=== PATIENT | female | born 1940 | race Caucasian/White ===

== ENCOUNTER 2017-03-22 07:08 | Emergency (ER) | payer MEDICARE, OTHER ==
[2017-03-22] MEDS ORDERED: traMADol 50 MG Tab PO ONE (07:39)
--- NOTE | 2017-03-22 07:42 | EDM.PDOC ---
ED HPI GENERAL MEDICAL PROBLEM - General Chief Complaint: Skin Complaint Stated Complaint: PAIN FROM SHINGLES Time Seen by Provider: 03/22/17 07:10 Source of Information: Reports: Patient History Limitations: Reports: No Limitations - History of Present Illness INITIAL COMMENTS - FREE TEXT/NARRATIVE: History of present illness: []Patient is brought in by her son for refill of tramadol for shingles. Patient arrived from [facility] the seizure last night and was admitted from March 04 to the for pyelonephritis, shingles and a stroke. Patient has no residual deficits from her stroke and she states that the stroke happened "years ago". Patient is currently on Valtrex for her shingles and Cipro for pyelonephritis. She has occasional urinary incontinence and is unchanged. She denies any fevers , vomiting, diarrhea, abdominal pain or any other complaints at this time Review of systems: As per history of present illness and below otherwise all systems reviewed and negative. Past medical history: As per history of present illness and as reviewed below otherwise noncontributory. Surgical history: As per history of present illness and as reviewed below otherwise noncontributory. Social history: No reported history of drug or alcohol abuse. Family history: As per history of present illness and as reviewed below otherwise noncontributory. Physical exam: General: Well developed, well nourished in NAD HEENT: Atraumatic, normocephalic, pupils reactive, negative for conjunctival pallor or scleral icterus, mucous membranes moist, throat clear, neck supple, nontender, trachea midline. Lungs: Clear to auscultation, breath sounds equal bilaterally, chest nontender. Heart: S1S2, regular, negative for clicks, rubs, or JVD. Abdomen: Soft, nondistended, nontender. Negative for masses or hepatosplenomegaly. Negative for costovertebral tenderness. Pelvis: Stable nontender. Shingles rash in her left flank to left abdomen. There is no signs of secondary infection/cellulitis Genitourinary: Deferred. Rectal: Deferred. Extremities: Atraumatic, negative for cords or calf pain. Neurovascular unremarkable. Neuro: Awake, alert, oriented. Cranial nerves II through XII unremarkable. Cerebellum unremarkable. Motor and sensory unremarkable throughout. Exam nonfocal. Diagnostics: [] Therapeutics: []Tramadol while in the ED Impression: []Med refill, shingles Plan: []Continue your current meds and tramadol as directed for pain follow-up with Dr. Iniguez Definitive disposition and diagnosis as appropriate pending reevaluation and review of above. Left Upper Chest Pain Score (Numeric/FACES): 10 - Related Data Allergies Allergy/AdvReac Type Severity Reaction Status Date / Time morphine Allergy Cannot Verified 03/22/17 07:32 Remember Home Meds: Home Meds Apixaban [Eliquis] 5 mg BID 03/22/17 [History] Atenolol 25 mg PO BID 03/22/17 [History] Baclofen 10 mg BEDTIME 03/22/17 [History] Ciprofloxacin [IJD: Ciprofloxacin HCl] 500 mg BID 03/22/17 [History] Clopidogrel [Plavix] 75 mg PO DAILY 03/22/17 [History] Donepezil HCl [Aricept] 10 mg PO BEDTIME 03/22/17 [History] Levothyroxine [Synthroid] 50 mcg PO ACBREAKFAST 03/22/17 [History] Memantine [Namenda] 10 mg PO BID 03/22/17 [History] Multivitamin [Multivitamins] 1 cap DAILY 03/22/17 [History] Simvastatin [Zocor] 10 mg PO DAILY 03/22/17 [History] traMADol HCl [Tramadol HCl] 50 mg PO Q6H PRN #20 tablet 03/22/17 [Rx] valACYclovir [Valtrex] 1,000 mg BID 03/22/17 [History] ED ROS GENERAL - Review of Systems Review Of Systems: See Below (See history of present illness) ED EXAM, SKIN/RASH Exam: See Below (See history of present illness) Course - Vital Signs Last Recorded V/S: Last Vital Signs Temp 97.2 F 03/22/17 07:28 Pulse 57 L 03/22/17 07:28 Resp 18 03/22/17 07:28 BP 127/72 03/22/17 07:28 Pulse Ox 95 03/22/17 07:28 - Orders/Labs/Meds Meds: Medications Discontinued Medications Generic Name Dose Route Start Last Admin Trade Name Freq PRN Reason Stop Dose Admin Tramadol HCl 50 mg 03/22/17 07:39 Ultram PO 03/22/17 07:40 ONETIME ONE Departure - Departure Time of Disposition: 07:47 Disposition: Home, Self-Care 01 Condition: Good Clinical Impression: Medication refill - Discharge Information Prescriptions: traMADol HCl [Tramadol HCl] 50 mg PO Q6H PRN #20 tablet PRN Reason: Pain Referrals: Nicolas Iniguez MD [Physician] - (Next available appointment) Forms: ED Department Discharge Additional Instructions: The following information is given to patients seen in the emergency department who are being discharged to home. This information is to outline your options for follow-up care. We provide all patients seen in our emergency department with a follow-up referral. The need for follow-up, as well as the timing and circumstances, are variable depending upon the specifics of your emergency department visit. If you don't have a primary care physician on staff, we will provide you with a referral. We always advise you to contact your personal physician following an emergency department visit to inform them of the circumstance of the visit and for follow-up with them and/or the need for any referrals to a consulting specialist. The emergency department will also refer you to a specialist when appropriate. This referral assures that you have the opportunity for follow-up care with a specialist. All of these measure are taken in an effort to provide you with optimal care, which includes your follow-up. Under all circumstances we always encourage you to contact your private physician who remains a resource for coordinating your care. When calling for follow-up care, please make the office aware that this follow-up is from your recent emergency room visit. If for any reason you are refused follow-up, please contact the [facility] Emergency Department at and asked to speak to the emergency department charge nurse. Take meds as directed follow-up with Dr. Iniguez as needed, return if symptoms worsen or change [facility] [address] [place] [id number]
== END 2017-03-22 08:00 | disposition home or self-care (01) ==
LOC: MW.ED 07:08
DX: Z76.0 Encounter for issue of repeat prescription (principal); B02.9 Zoster without complications; Z88.5 Allergy status to narcotic agent; Z79.899 Other long term (current) drug therapy
CPT/HCPCS: 99281; A9270

== ENCOUNTER 2017-03-29 09:38 | Observation (INO) | payer MEDICARE, OTHER ==
--- NOTE | 2017-03-29 09:45 | EDM.PDOC ---
ED HPI GENERAL MEDICAL PROBLEM - General Chief Complaint: Flank Pain Stated Complaint: ABD PAIN Time Seen by Provider: 03/29/17 09:45 Source of Information: Reports: Patient - History of Present Illness INITIAL COMMENTS - FREE TEXT/NARRATIVE: HISTORY AND PHYSICAL: History of present illness: Patient is up with family possibly relocating from [place] in [address] [place] [address] She has a recent admission for pyelonephritis while down in [place], she also has a history of shingles on the left in a T8 10 distribution, she is complaining of left flank pain radiating to the abdomen and some radiation to the groin she rated 8 out of 10 on arrival No fever nausea vomiting chills sweats Review of systems: As per history of present illness and below otherwise all systems reviewed and negative. Past medical history: As per history of present illness and as reviewed below otherwise noncontributory. Surgical history: As per history of present illness and as reviewed below otherwise noncontributory. Social history: No reported history of drug or alcohol abuse. Family history: As per history of present illness and as reviewed below otherwise noncontributory. Physical exam: HEENT: Atraumatic, normocephalic, pupils reactive, negative for conjunctival pallor or scleral icterus, mucous membranes moist, throat clear, neck supple, nontender, trachea midline. Lungs: Clear to auscultation, breath sounds equal bilaterally, chest nontender. Heart: S1S2, regular, negative for clicks, rubs, or JVD. Abdomen: Soft, nondistended, nontender. Negative for masses or hepatosplenomegaly. Negative for costovertebral tenderness. Pelvis: Stable nontender. Genitourinary: Deferred. Rectal: Deferred. Extremities: Atraumatic, negative for cords or calf pain. Neurovascular unremarkable. Neuro: Awake, alert, oriented. Cranial nerves II through XII unremarkable. Cerebellum unremarkable. Motor and sensory unremarkable throughout. Exam nonfocal. Diagnostics: [CBC CMP UA troponin amylase lipase CT abdomen pelvis no contrast Therapeutics: [1 L bolus normal saline Normal saline running at 125 Levaquin 500 milligrams IV Zosyn 3.375 g IV ] Impression: Hypotension Left pyelonephritis UTI Rule out sepsis [Left]Flank pain Definitive disposition and diagnosis as appropriate pending reevaluation and review of above. Left Abdominal Pain Score (Numeric/FACES): 9 - Related Data Allergies Allergy/AdvReac Type Severity Reaction Status Date / Time morphine Allergy Cannot Verified 03/29/17 09:52 Remember Home Meds: Home Meds Apixaban [Eliquis] 5 mg BID 03/22/17 [History] Atenolol 25 mg PO BID 03/22/17 [History] Baclofen 10 mg BEDTIME 03/22/17 [History] Ciprofloxacin [IJD: Ciprofloxacin HCl] 500 mg BID 03/22/17 [History] Clopidogrel [Plavix] 75 mg PO DAILY 03/22/17 [History] Donepezil HCl [Aricept] 10 mg PO BEDTIME 03/22/17 [History] Levothyroxine [Synthroid] 50 mcg PO ACBREAKFAST 03/22/17 [History] Memantine [Namenda] 10 mg PO BID 03/22/17 [History] Multivitamin [Multivitamins] 1 cap DAILY 03/22/17 [History] Simvastatin [Zocor] 10 mg PO DAILY 03/22/17 [History] traMADol HCl [Tramadol HCl] 50 mg PO Q6H PRN #20 tablet 03/22/17 [Rx] valACYclovir [Valtrex] 1,000 mg BID 03/22/17 [History] Past Medical History Cardiovascular History: Reports: High Cholesterol, Hypertension, [place], Stents Neurological History: Reports: Alzheimers Disease, TIA Psychiatric History: Reports: Alzheimers Disease Endocrine/Metabolic History: Reports: Hypothyroidism Oncologic (Cancer) History: Reports: Cervix - Infectious Disease History Infectious Disease History: Reports: Chicken Pox, Measles, Mumps, Rheumatic Fever, Shingles - Past Surgical History HEENT Surgical History: Reports: Tonsillectomy GI Surgical History: Reports: Appendectomy Female Surgical History: Reports: Hysterectomy, Oophorectomy Other Female Surgeries/Procedures: hx cervical cancer Social & Family History - Family History Family Medical History: Noncontributory - Tobacco Use Smoking Status *Q: Former Smoker Used Tobacco, but Quit: Yes Month Tobacco Last Used: unknown - Caffeine Use Caffeine Use: Reports: None - Recreational Drug Use Recreational Drug Use: No ED ROS GENERAL - Review of Systems Review Of Systems: ROS reveals no pertinent complaints other than HPI. ED EXAM, GENERAL - Physical Exam Exam: See Below Course - Vital Signs Last Recorded V/S: Last Vital Signs Temp 98.6 F 03/29/17 12:39 Pulse 60 03/29/17 12:39 Resp 12 03/29/17 12:39 BP 93/59 L 03/29/17 12:39 Pulse Ox 99 03/29/17 12:39 - Orders/Labs/Meds Orders: Active Orders 24 hr Category Date Time Status CULTURE BLOOD [BC] Stat Lab 03/29/17 12:04 Received CULTURE BLOOD [BC] Stat Lab 03/29/17 12:15 Received CULTURE URINE [RM] Stat Lab 03/29/17 11:20 Received LACTATE WITH REFLEX [BG] Stat Lab 03/29/17 13:03 Ordered HYDROmorphone [Dilaudid] Med 03/29/17 11:16 Active 0.5 mg IVPUSH ONETIME PRN Piperacillin/Tazobactam [Piperacil-Tazobact] 3.375 gm Med 03/29/17 13:06 Ordered Sodium Chloride 0.9% [Normal Saline] 50 ml IV ONETIME Blood Culture x2 Reflex Set [OM.PC] Stat Oth 03/29/17 11:53 Ordered Medication Orders Hydromorphone HCl (Dilaudid) 0.5 mg IVPUSH ONETIME PRN PRN Reason: Pain Labs: Laboratory Tests 03/29/17 03/29/17 03/29/17 Range/Units 10:15 10:15 11:20 WBC 6.20 (4.0-11.0) K/uL RBC 4.48 (4.30-5.90) M/uL Hgb 13.7 (12.0-16.0) g/dL Hct 41.9 (36.0-46.0) % MCV 93.5 (80.0-98.0) fL MCH 30.6 (27.0-32.0) pg MCHC 32.7 (31.0-37.0) g/dL RDW Std Deviation 57.7 (28.0-62.0) fl RDW Coeff of [place] 17 H (11.0-15.0) % Plt Count 233 (150-400) K/uL MPV 8.80 (7.40-12.00) fL Neut % (Auto) 61.8 (48.0-80.0) % Lymph % (Auto) 28.1 (16.0-40.0) % [place] % (Auto) 9.4 (0.0-15.0) % Eos % (Auto) 0.5 (0.0-7.0) % Baso % (Auto) 0.2 (0.0-1.5) % Neut # (Auto) 3.8 (1.4-5.7) K/uL Lymph # (Auto) 1.7 (0.6-2.4) K/uL [place] # (Auto) 0.6 (0.0-0.8) K/uL Eos # (Auto) 0.0 (0.0-0.7) K/uL Baso # (Auto) 0.0 (0.0-0.1) K/uL Nucleated RBC % 0.0 /100WBC Nucleated RBCs # 0 K/uL Sodium 137 (136-146) mmol/L Potassium 4.4 (3.5-5.1) mmol/L Chloride 103 (98-110) mmol/L Carbon Dioxide 23 (21-31) mmol/L BUN 24 H (6.0-23.0) mg/dL Creatinine 1.1 (0.6-1.5) mg/dL Est Cr Clr Drug Dosing 39.15 mL/min Estimated GFR (MDRD) 48.3 ml/min Glucose 103 (60-110) mg/dL Calcium 9.6 (8.8-10.8) mg/dL Total Bilirubin 0.7 (0.1-1.5) mg/dL AST 18 (5-40) IU/L ALT 11 (8-54) IU/L Alkaline Phosphatase 63 (40-150) Troponin I < 0.10 (0.0-0.29) NG/ML Total Protein 7.8 (6.0-8.0) g/dL Albumin 4.3 (3.4-4.8) g/dL Globulin 3.5 (2.0-3.5) g/dL Albumin/Globulin Ratio 1.2 L (1.3-2.8) Amylase 75 (10-90) U/L Lipase 15 (7-80) U/L Urine Color YELLOW Urine Appearance CLEAR Urine pH 6.0 (5.0-8.0) Ur Specific [place] 1.010 (1.001-1.035) Urine Protein NEGATIVE (NEGATIVE) mg/dL Urine Glucose (UA) NEGATIVE (NEGATIVE) mg/dL Urine Ketones NEGATIVE (NEGATIVE) mg/dL Urine Occult Blood MODERATE (NEGATIVE) Urine Nitrite NEGATIVE (NEGATIVE) Urine Bilirubin NEGATIVE (NEGATIVE) Urine Urobilinogen 0.2 (<2.0) EU/dL Ur Leukocyte Esterase MODERATE (NEGATIVE) Urine RBC 2-3 (0-2/HPF) Urine WBC 30-35 (0-5/HPF) Ur Epithelial Cells FEW (NONE-FEW) Urine Bacteria FEW (NEGATIVE) Meds: Medications Generic Name Dose Route Start Last Admin Trade Name Freq PRN Reason Stop Dose Admin Hydromorphone HCl 0.5 mg 03/29/17 11:16 Dilaudid IVPUSH ONETIME PRN Pain Discontinued Medications Generic Name Dose Route Start Last Admin Trade Name Freq PRN Reason Stop Dose Admin Hydromorphone HCl 0.5 mg 03/29/17 11:03 Dilaudid IVPUSH ONETIME PRN Pain Hydromorphone HCl 0.5 mg 03/29/17 11:14 03/29/17 11:20 Dilaudid IVPUSH 03/29/17 11:15 0.5 mg ONETIME ONE Administration Sodium Chloride 1,000 mls @ 999 mls/hr 03/29/17 10:05 03/29/17 10:36 Normal Saline IV 03/29/17 11:05 999 mls/hr STAT ONE Administration Levofloxacin/Dextrose 500 mg/ 100 mls @ 100 mls/hr 03/29/17 12:01 03/29/17 12 :37 Premix IV 03/29/17 13:00 100 mls/hr ONETIME ONE Administration Departure - Departure Time of Disposition: 13:09 Disposition: Home, Self-Care 01 Condition: Good Clinical Impression: UTI, Urinary tract infectious disease, Hypotension, Pyelonephritis - Discharge Information Referrals: PCP,None [Primary Care Provider] - Forms: ED Department Discharge - My Orders Last 24 Hours: My Active Orders 03/29/17 11:16 HYDROmorphone [Dilaudid] 0.5 mg IVPUSH ONETIME PRN 03/29/17 11:20 CULTURE URINE [RM] Stat 03/29/17 11:53 Blood Culture x2 Reflex Set [OM.PC] Stat 03/29/17 12:04 CULTURE BLOOD [BC] Stat 03/29/17 12:15 CULTURE BLOOD [BC] Stat 03/29/17 13:03 LACTATE WITH REFLEX [BG] Stat 03/29/17 13:06 Piperacillin/Tazobactam [Piperacil-Tazobact] 3.375 gm Sodium Chloride 0.9% [ Normal Saline] 50 ml IV ONETIME - Assessment/Plan Last 24 Hours: My Active Orders 03/29/17 11:16 HYDROmorphone [Dilaudid] 0.5 mg IVPUSH ONETIME PRN 03/29/17 11:20 CULTURE URINE [RM] Stat 03/29/17 11:53 Blood Culture x2 Reflex Set [OM.PC] Stat 03/29/17 12:04 CULTURE BLOOD [BC] Stat 03/29/17 12:15 CULTURE BLOOD [BC] Stat 03/29/17 13:03 LACTATE WITH REFLEX [BG] Stat 03/29/17 13:06 Piperacillin/Tazobactam [Piperacil-Tazobact] 3.375 gm Sodium Chloride 0.9% [ Normal Saline] 50 ml IV ONETIME
[2017-03-29] MEDS ORDERED: Sodium Chloride 0.9% 1,000 ML IV ONE (10:05)
[2017-03-29 10:51] LABS: CHLORIDE,CL 103 mmol/L (98-110); SODIUM,NA 137 mmol/L (136-146)
[2017-03-29] MEDS ORDERED: HYDROmorphone 2 MG/ML Syringe IVPUSH PRN (11:03)
[2017-03-29] MEDS ORDERED: HYDROmorphone 1 MG/ML Syringe IVPUSH ONE (11:14)
[2017-03-29] MEDS ORDERED: HYDROmorphone 1 MG/ML Syringe IVPUSH PRN (11:16)
[2017-03-29] MEDS ORDERED: Levofloxacin/Dextrose 5%-Water 500 MG in Premix Bag 1 BAG IV ONE (12:01)
--- NOTE | 2017-03-29 12:53 | CT ---
CT of the abdomen and pelvis without contrast. HISTORY: Pain TECHNIQUE: Axial CT images were obtained of the abdomen and pelvis without contrast. Coronal and sagi ttal reconstructions obtained. FINDINGS: The lung bases are clear, no pleural effusion. There is a 6 x 5 mm nodule within the left lower lobe and eccentric calcification. There are a few adjacent tiny predominantly calcified nodules also noted . Coronary calcifications are noted. The liver, spleen, adrenal glands, and pancreas appear unremarkable for noncontrast examination. Chol ecystectomy. There is no bulky retroperitoneal lymphadenopathy. No abdominal ascites. There are no calcifications noted within the kidneys or along the courses of the ureters bilaterally. Mild prominence of the proximal ureters without a definite filling defect. The large and small bowel are normal in caliber without evidence of obstruction. There is no bulky p elvic lymphadenopathy. No free fluid. No free air. The urinary bladder appears normal. The visualized osseous structures appear normal. IMPRESSION: 1. No acute findings within the abdomen or pelvis. 2. Several small pulmonary nodules within the left lung base, one of which is not calcified. Follow-u p in 12 months may be beneficial if the patient has known risk factors.
[2017-03-29] MEDS ORDERED: Piperacillin/Tazobactam 3.375 GM in Sodium Chloride 0.9% 50 ML IV ONE (13:06)
[2017-03-29] MEDS ORDERED: Sodium Chloride 0.9% 1,000 ML IV SCH (13:15)
[2017-03-29] MEDS ORDERED: Ondansetron 4 MG/2 ML SDV IVPUSH PRN (13:36)
--- NOTE | 2017-03-29 13:43 | PCM.HP ---
H&P History of Present Illness - General Admit Problem/Dx: Admission Diagnosis/Problem Admission Diagnosis/Problem Pyelonephritis - History of Present Illness Initial Comments - Free Text/Narative: 76 yo female with pmh of dementia and CAD. She had a recent hospitalization last week in [place] for UTI and shingles. She was discharged on Cipro and valacyclovir. Due to her dementia she was brought here closer to her son. Due to increasing flank pain in the area of her shingles she was brought to the ED. In the ED she was noted to have pyuria. She had a CT scan of abdomen/pelvis that did not show any obstructing stones. She was given 0.5mg of dilaudid. Her blood pressure on admission was 144/64 but this dropped to 93/59. She was given IV fluids and her blood pressure now is 109/53. She denies any fever, chills, cough, or shortness of breath. She is a poor historian and son present does not know much about her medical history. Left Abdominal Pain Score (Numeric/FACES): 9 - Related Data Allergies/Adverse Reactions: Allergies Allergy/AdvReac Type Severity Reaction Status Date / Time morphine Allergy Cannot Verified 03/29/17 09:52 Remember Home Medications: Home Meds Apixaban [Eliquis] 5 mg BID 03/22/17 [History] Atenolol 25 mg PO BID 03/22/17 [History] Baclofen 10 mg BEDTIME 03/22/17 [History] Clopidogrel [Plavix] 75 mg PO DAILY 03/22/17 [History] Donepezil HCl [Aricept] 10 mg PO BEDTIME 03/22/17 [History] Levothyroxine [Synthroid] 50 mcg PO ACBREAKFAST 03/22/17 [History] Memantine [Namenda] 10 mg PO BID 03/22/17 [History] Multivitamin [Multivitamins] 1 cap DAILY 03/22/17 [History] Simvastatin [Zocor] 10 mg PO DAILY 03/22/17 [History] traMADol HCl [Tramadol HCl] 50 mg PO Q6H PRN #20 tablet 03/22/17 [Rx] Gabapentin 300 mg PO TID 15 Days #45 ml 03/31/17 [Rx] Sulfamethoxazole/Trimethoprim [Bactrim Ds Tablet] 1 each PO BID 7 Days #14 tablet 03/31/17 [Rx] oxyCODONE 5 mg PO Q6HR PRN 5 Days #20 tablet 03/31/17 [Rx] Past Medical History Cardiovascular History: Reports: High Cholesterol, Hypertension, [place], Stents Neurological History: Reports: Alzheimers Disease, TIA Psychiatric History: Reports: Alzheimers Disease Endocrine/Metabolic History: Reports: Hypothyroidism Oncologic (Cancer) History: Reports: Cervix - Infectious Disease History Infectious Disease History: Reports: Chicken Pox, Measles, Mumps, Rheumatic Fever, Shingles - Past Surgical History HEENT Surgical History: Reports: Tonsillectomy GI Surgical History: Reports: Appendectomy Female Surgical History: Reports: Hysterectomy, Oophorectomy Other Female Surgeries/Procedures: hx cervical cancer Social & Family History - Family History Family Medical History: Noncontributory - Tobacco Use Smoking Status *Q: Former Smoker Used Tobacco, but Quit: Yes Month Tobacco Last Used: unknown - Caffeine Use Caffeine Use: Reports: None - Recreational Drug Use Recreational Drug Use: No H&P Review of Systems - Review of Systems: Review Of Systems: ROS reveals no pertinent complaints other than HPI. Exam - Exam Exam: See Below - Vital Signs Vital Signs: Last Vital Signs Temp 36.6 C 03/29/17 13:07 Pulse 60 03/29/17 13:07 Resp 13 03/29/17 13:07 BP 109/54 L 03/29/17 13:07 Pulse Ox 92 L 03/29/17 13:07 Weight: 57.153 kg - Exam General: Alert, Oriented HEENT: Mucosa Moist & [place] Lungs: Clear to Auscultation, Normal Respiratory Effort GI/Abdominal Exam: Soft, Non-Tender Back Exam: No: CVA Tenderness (L), CVA Tenderness (R) Extremities: No Pedal Edema Skin: Rash (macular papular rash of the left flank) - Patient Data Lab Results Last 24 hrs: Laboratory Results - last 24 hr 03/29/17 Range/Units 13:18 Lactate 0.7 (0.20-2.00) mmol/L Result Diagrams: 03/31/17 09:15 03/31/17 09:15 *Q Meaningful Use (ADM) - VTE *Q VTE Criteria *Q: - Stroke *Q Stroke Criteria *Q: - AMI *Q AMI Criteria *Q: Problem List Initiated/Reviewed/Updated: Yes Orders Last 24hrs: Active Orders 24 hr Category Date Time Status Antiembolic Devices [RC] PER UNIT ROUTINE Care 03/29/17 13:37 Ordered Oxygen Therapy [RC] PRN Care 03/29/17 13:36 Ordered Up ad Penny [RC] ASDIRECTED Care 03/29/17 13:36 Ordered VTE/DVT Education [RC] PER UNIT ROUTINE Care 03/29/17 13:36 Ordered Vital Signs [RC] Q4H Care 03/29/17 13:36 Ordered Regular Diet [DIET] Diet 03/29/17 Breakfast Ordered BASIC METABOLIC PANEL,BMP [CHEM] AM Lab 03/30/17 05:11 Ordered CBC WITH AUTO DIFF [HEME] AM Lab 03/30/17 05:11 Ordered Apixaban [Eliquis] Med 03/29/17 21:00 Ordered 5 mg PO BID Clopidogrel [Plavix] Med 03/30/17 09:00 Ordered 75 mg PO DAILY Levothyroxine [Synthroid] Med 03/30/17 07:30 Ordered 50 mcg PO ACBREAKFAST Ondansetron [Zofran] Med 03/29/17 13:36 Ordered 4 mg IVPUSH Q4H PRN Piperacillin/Tazobactam [Piperacil-Tazobact] 3.375 gm Med 03/29/17 19:00 Ordered Sodium Chloride 0.9% [Normal Saline] 50 ml IV Q6H Sodium Chloride 0.9% @ 125 MLS/HR (1000ml) Med 03/29/17 13:45 Ordered Sodium Chloride 0.9% [Normal Saline] 1,000 ml IV ASDIRECTED Sodium Chloride 0.9% [Normal Saline] 1,000 ml Med 03/29/17 13:15 Active IV STAT valACYclovir Med 03/29/17 21:00 Ordered 1,000 mg PO BID Sequential Compression Device [OM.PC] Per Unit Routine Oth 03/29/17 13:36 Ordered Resuscitation Status Routine Resus Stat 03/29/17 13:36 Ordered Medication Orders Apixaban (Eliquis) 5 mg PO BID MICHELLE Clopidogrel Bisulfate (Plavix) 75 mg PO DAILY MICHELLE Hydromorphone HCl (Dilaudid) 0.5 mg IVPUSH ONETIME PRN PRN Reason: Pain Sodium Chloride (Normal Saline) 1,000 mls @ 125 mls/hr IV STAT MICHELLE Last Admin: 03/29/17 13:17 Dose: 125 mls/hr Piperacillin Sod/Tazobactam (Sod 3.375 gm/ Sodium Chloride) 50 mls @ 100 mls/ hr IV Q6H [facility] Levothyroxine Sodium (Synthroid) 50 mcg PO ACBREAKFAST [facility] Non-Formulary Medication (Valacyclovir) 1,000 mg PO BID [facility] Assessment/Plan Comment:: 76 yo female admitted for UTI and hypotension. Her low blood pressure could be from the Dilaudid but will continue to closely monitor to rule out sepsis. Patient is on Zosyn. Blood and urine cultures are ordered. We will continue valacyclovir.
[2017-03-29] MEDS: Sodium Chloride 0.9% 1,000 ML IV SCH ×2 (15:25→21:32)
[2017-03-29] MEDS: traMADol 50 MG Tab PO PRN ×2 (15:25→22:41)
[2017-03-29] MEDS: Acetaminophen 325 MG Tab PO PRN ×2 (15:25→20:58)
[2017-03-29] MEDS: Piperacillin/Tazobactam 3.375 GM in Sodium Chloride 0.9% 50 ML IV SCH (18:03)
[2017-03-29] MEDS ORDERED: Morphine 2 MG/ML Syringe IVPUSH PRN (19:40)
[2017-03-29] MEDS: Apixaban 5 MG Tab PO SCH (20:22)
[2017-03-29] MEDS: valACYclovir 500 MG Tab PO SCH (20:22)
[2017-03-29] MEDS: oxyCODONE 5 MG Tab PO PRN (20:58)
[2017-03-29] MEDS ORDERED: Gabapentin 300 MG Cap PO SCH (22:48)
[2017-03-29] MEDS: Gabapentin 300 MG Cap PO SCH (23:15)
[2017-03-30] MEDS: Piperacillin/Tazobactam 3.375 GM in Sodium Chloride 0.9% 50 ML IV SCH ×4 (00:15→18:03)
[2017-03-30] MEDS: oxyCODONE 5 MG Tab PO PRN ×4 (03:14→18:04)
[2017-03-30] MEDS: Acetaminophen 325 MG Tab PO PRN ×4 (03:16→18:04)
[2017-03-30] MEDS: Sodium Chloride 0.9% 1,000 ML IV SCH (06:01)
[2017-03-30 06:13] LABS: CHLORIDE,CL 110 mmol/L (98-110); SODIUM,NA 140 mmol/L (136-146)
[2017-03-30] MEDS: traMADol 50 MG Tab PO PRN (06:43)
[2017-03-30] MEDS: Levothyroxine 50 MCG Tab PO SCH (06:43)
[2017-03-30] MEDS: Clopidogrel 75 MG Tab PO SCH (08:17)
[2017-03-30] MEDS: Apixaban 5 MG Tab PO SCH ×2 (08:17→20:30)
[2017-03-30] MEDS: valACYclovir 500 MG Tab PO SCH ×2 (08:17→20:30)
[2017-03-30] MEDS: Gabapentin 300 MG Cap PO SCH (08:17)
--- NOTE | 2017-03-30 08:30 | PCM.PN ---
- General Info Date of Service: 03/30/17 Admission Dx/Problem (Free Text): Patient is more cognizant today than she was on upon admission. Patient is feeling a lot better in terms of her pain and symptoms. Patient is no longer hypotensive with maps in the 70s to 80s. Patient denied any nausea or vomiting. Patient denied any fevers chills. Patient was complaining of shakiness which she states is been an ongoing issue over the last several months. - Review of Systems General: Reports: Weakness Gastrointestinal: Reports: Abdominal Pain Neurological: Reports: Weakness - Patient Data Vitals - Most Recent: Last Vital Signs Temp 36.6 C 03/30/17 04:00 Pulse 72 03/29/17 18:00 Resp 12 03/30/17 07:00 BP 135/57 L 03/30/17 07:00 Pulse Ox 94 L 03/30/17 07:00 Weight - Most Recent: 57.3 kg I&O - Last 24 Hours: Intake & Output 03/29/17 03/30/17 03/30/17 22:59 06:59 14:59 Intake Total 1910 1100 Output Total 400 1600 Balance 1510 -500 Lab Results Last 24 Hours: Laboratory Results - last 24 hr 03/29/17 03/30/17 03/30/17 Range/Units 13:18 05:51 05:51 WBC 3.89 L (4.0-11.0) K/uL RBC 3.89 L (4.30-5.90) M/uL Hgb 11.9 L (12.0-16.0) g/dL Hct 36.3 (36.0-46.0) % MCV 93.3 (80.0-98.0) fL MCH 30.6 (27.0-32.0) pg MCHC 32.8 (31.0-37.0) g/dL RDW Std Deviation 57.3 (28.0-62.0) fl RDW Coeff of Shaan 17 H (11.0-15.0) % Plt Count 192 (150-400) K/uL MPV 8.70 (7.40-12.00) fL Neut % (Auto) 44.2 L (48.0-80.0) % Lymph % (Auto) 45.0 H (16.0-40.0) % [place] % (Auto) 9.0 (0.0-15.0) % Eos % (Auto) 1.3 (0.0-7.0) % Baso % (Auto) 0.5 (0.0-1.5) % Neut # (Auto) 1.7 (1.4-5.7) K/uL Lymph # (Auto) 1.8 (0.6-2.4) K/uL [place] # (Auto) 0.4 (0.0-0.8) K/uL Eos # (Auto) 0.1 (0.0-0.7) K/uL Baso # (Auto) 0.0 (0.0-0.1) K/uL Nucleated RBC % 0.0 /100WBC Nucleated RBCs # 0 K/uL Lactate 0.7 (0.20-2.00) mmol/L Sodium 140 (136-146) mmol/L Potassium 4.1 (3.5-5.1) mmol/L Chloride 110 (98-110) mmol/L Carbon Dioxide 21 (21-31) mmol/L BUN 15 (6.0-23.0) mg/dL Creatinine 0.8 (0.6-1.5) mg/dL Est Cr Clr Drug Dosing 53.83 mL/min Estimated GFR (MDRD) > 60.0 ml/min Glucose 88 (60-110) mg/dL Calcium 8.5 L (8.8-10.8) mg/dL Med Orders - Current: Current Medications Acetaminophen (Tylenol) 650 mg PO Q4H PRN PRN Reason: Pain (mild 1-3) Last Admin: 03/30/17 08:17 Dose: 650 mg Apixaban (Eliquis) 5 mg PO BID [facility] Last Admin: 03/30/17 08:17 Dose: 5 mg Clopidogrel Bisulfate (Plavix) 75 mg PO DAILY [facility] Last Admin: 03/30/17 08:17 Dose: 75 mg Gabapentin (Neurontin) 300 mg PO DAILY [facility] Last Admin: 03/30/17 08:17 Dose: 300 mg Piperacillin Sod/Tazobactam (Sod 3.375 gm/ Sodium Chloride) 50 mls @ 100 mls/ hr IV Q6H [facility] Last Admin: 03/30/17 06:01 Dose: 100 mls/hr Sodium Chloride (Normal Saline) 1,000 mls @ 125 mls/hr IV ASDIRECTED [facility] Last Admin: 03/30/17 06:01 Dose: 125 mls/hr Levothyroxine Sodium (Synthroid) 50 mcg PO ACBREAKFAST [facility] Last Admin: 03/30/17 06:43 Dose: 50 mcg Ondansetron HCl (Zofran) 4 mg IVPUSH Q4H PRN PRN Reason: Nausea Oxycodone HCl (Oxycodone) 5 mg PO Q4H PRN PRN Reason: Pain Last Admin: 03/30/17 08:17 Dose: 5 mg Tramadol HCl (Ultram) 50 mg PO Q6H PRN PRN Reason: Pain Last Admin: 03/30/17 06:43 Dose: 50 mg Valacyclovir HCl (Valtrex) 1,000 mg PO BID [facility] Last Admin: 03/30/17 08:17 Dose: 1,000 mg Discontinued Medications Gabapentin (Neurontin) 300 mg PO BEDTIME [facility] Last Admin: 03/29/17 23:13 Dose: Not Given Hydromorphone HCl (Dilaudid) 0.5 mg IVPUSH ONETIME PRN PRN Reason: Pain Hydromorphone HCl (Dilaudid) 0.5 mg IVPUSH ONETIME PRN PRN Reason: Pain Hydromorphone HCl (Dilaudid) 0.5 mg IVPUSH ONETIME ONE Stop: 03/29/17 11:15 Last Admin: 03/29/17 11:20 Dose: 0.5 mg Sodium Chloride (Normal Saline) 1,000 mls @ 999 mls/hr IV STAT ONE Stop: 03/29/17 11:05 Last Admin: 03/29/17 10:36 Dose: 999 mls/hr Levofloxacin/Dextrose 500 mg/ (Premix) 100 mls @ 100 mls/hr IV ONETIME ONE Stop: 03/29/17 13:00 Last Admin: 03/29/17 12:37 Dose: 100 mls/hr Piperacillin Sod/Tazobactam (Sod 3.375 gm/ Sodium Chloride) 50 mls @ 100 mls/ hr IV ONETIME ONE Stop: 03/29/17 13:35 Last Admin: 03/29/17 13:16 Dose: 100 mls/hr Sodium Chloride (Normal Saline) 1,000 mls @ 125 mls/hr IV STAT [facility] Last Admin: 03/29/17 13:17 Dose: 125 mls/hr Morphine Sulfate (Morphine) 1 mg IVPUSH Q3H PRN PRN Reason: Pain - Exam General: Alert, Oriented, Cooperative HEENT: Pupils Equal Neck: Supple Lungs: Clear to Auscultation, Normal Respiratory Effort Cardiovascular: Regular Rate, Regular Rhythm GI/Abdominal Exam: Other (Pain on left side abdomen secondary to shingles.) Extremities: No Pedal Edema - Problem List Review Problem List Initiated/Reviewed/Updated: Yes - Plan Plan:: 76 yo female admitted for UTI and hypotension. Her low blood pressure could be from the Dilaudid but will continue to closely monitor to rule out sepsis. Patient is on Zosyn. Blood and urine cultures are ordered. We will continue valacyclovir. #1. Hypotension has improved with maps in the 70s to 80s likely secondary to improvement of pain #2. UTI/polyuria -Continue with Zosyn -awating cultures #3 . Shingles -Continue the valacyclovir and gabapentin #4. Patient stable enough to be transferred out of ICU to the general floor.
[2017-03-30] MEDS: Ibuprofen 400 MG Tab PO PRN (20:28)
[2017-03-31] MEDS: Piperacillin/Tazobactam 3.375 GM in Sodium Chloride 0.9% 50 ML IV SCH ×2 (01:09→06:03)
[2017-03-31] MEDS: Ibuprofen 400 MG Tab PO PRN (02:13)
[2017-03-31] MEDS: oxyCODONE 5 MG Tab PO PRN ×2 (03:19→09:06)
[2017-03-31] MEDS: Acetaminophen 325 MG Tab PO PRN ×2 (03:20→09:06)
[2017-03-31] MEDS: traMADol 50 MG Tab PO PRN (04:21)
[2017-03-31] MEDS: Levothyroxine 50 MCG Tab PO SCH (06:31)
[2017-03-31] MEDS: Clopidogrel 75 MG Tab PO SCH (08:07)
[2017-03-31] MEDS: Apixaban 5 MG Tab PO SCH (08:07)
[2017-03-31] MEDS: Gabapentin 300 MG Cap PO SCH (08:07)
[2017-03-31] MEDS: valACYclovir 500 MG Tab PO SCH (09:06)
--- NOTE | 2017-04-06 23:56 | PCM.DCSUM1 ---
<Maksim Uriostegui Z - Last Filed: 04/06/17 23:41> Discharge Summary - Hospital Course Free Text/Narrative:: Discharge Summary Date of admission: 03/29/17 Date of discharge: 03/31/17 Admitting diagnosis: #1. UTI #2. Hypertension #3. Shingles #4. #5. Discharge diagnoses: #1. Hypotension resolved #2. UTI/pyuria resolved #3. Shingles resolved #4. #5. Consultations: None Procedures: None Hospitalization course: Patient was admitted and placed into the ICU secondary to her hypotension due to her UTI/pyuria. Patient was having severe upper abdominal pain which was secondary to her shingles infection. Patient was on valacyclovir and that was continued along with the addition of gabapentin for neuropathic pain. And cultures were conducted. Patient over the course of the next couple of days was stabilized enough to be transferred out of the ICU and onto the general floor. Patient's labs and vital signs are stable and decision was made to discharge the patient on Bactrim double strength and continuation of oral medication. Disposition on discharge: Home Condition on discharge: Stable Discharge medications: Bactrim double strength, oxycodone, gabapentin, continuation of home medication Follow-up instructions: Follow-up with primary care physician Dr. Nicolas Iniguez - Discharge Data Discharge Date: 03/31/17 Discharge Disposition: Home, Self-Care 01 Condition: Stable - Patient Summary/Data Consults: Consultations 03/30/17 09:44 PT Evaluation and Treatment [CONS] Routine - Patient Instructions Diet: Usual Diet as Tolerated Activity: As Tolerated Driving: Do Not Drive Showering/Bathing: May Shower Notify Provider of: Fever, Increased Pain, Swelling and Redness, Drainage, Nausea and/or Vomiting - Discharge Plan Prescriptions/Med Rec: oxyCODONE 5 mg PO Q6HR PRN 5 Days #20 tablet PRN Reason: Pain Gabapentin 300 mg PO TID 15 Days #45 ml Sulfamethoxazole/Trimethoprim [Bactrim Ds Tablet] 1 each PO BID 7 Days #14 tablet Home Medications: Home Meds Apixaban [Eliquis] 5 mg BID 03/22/17 [History] Atenolol 25 mg PO BID 03/22/17 [History] Baclofen 10 mg BEDTIME 03/22/17 [History] Clopidogrel [Plavix] 75 mg PO DAILY 03/22/17 [History] Donepezil HCl [Aricept] 10 mg PO BEDTIME 03/22/17 [History] Levothyroxine [Synthroid] 50 mcg PO ACBREAKFAST 03/22/17 [History] Memantine [Namenda] 10 mg PO BID 03/22/17 [History] Multivitamin [Multivitamins] 1 cap DAILY 03/22/17 [History] Simvastatin [Zocor] 10 mg PO DAILY 03/22/17 [History] traMADol HCl [Tramadol HCl] 50 mg PO Q6H PRN #20 tablet 03/22/17 [Rx] Gabapentin 300 mg PO TID 15 Days #45 ml 03/31/17 [Rx] Sulfamethoxazole/Trimethoprim [Bactrim Ds Tablet] 1 each PO BID 7 Days #14 tablet 03/31/17 [Rx] oxyCODONE 5 mg PO Q6HR PRN 5 Days #20 tablet 03/31/17 [Rx] Patient Handouts: Gabapentin capsules or tablets, Shingles, [id number], Urinary Tract Infection, Adult, Oxycodone extended-release tablets, Sulfamethoxazole; Trimethoprim, [id number]-[id number] tablets Forms: ED Department Discharge Referrals: [facility] [Outside] PCP,None [Primary Care Provider] - Nicolas Iniguez MD [Physician] - 04/10/17 2:30 pm - Discharge Summary/Plan Comment DC Time >30 min.: No - Patient Data Vitals - Most Recent: Last Vital Signs Temp 36.8 C 03/31/17 08:00 Pulse 79 03/31/17 08:00 Resp 17 03/31/17 08:00 BP 116/75 03/31/17 08:00 Pulse Ox 95 03/31/17 08:00 Weight - Most Recent: 57.153 kg Med Orders - Current: Current Medications Discontinued Medications Acetaminophen (Tylenol) 650 mg PO Q4H PRN PRN Reason: Pain (mild 1-3) Last Admin: 03/31/17 09:06 Dose: 650 mg Apixaban (Eliquis) 5 mg PO BID [facility] Last Admin: 03/31/17 08:07 Dose: 5 mg Clopidogrel Bisulfate (Plavix) 75 mg PO DAILY [facility] Last Admin: 03/31/17 08:07 Dose: 75 mg Gabapentin (Neurontin) 300 mg PO DAILY [facility] Last Admin: 03/31/17 08:07 Dose: 300 mg Gabapentin (Neurontin) 300 mg PO BEDTIME [facility] Last Admin: 03/29/17 23:13 Dose: Not Given Hydromorphone HCl (Dilaudid) 0.5 mg IVPUSH ONETIME PRN PRN Reason: Pain Hydromorphone HCl (Dilaudid) 0.5 mg IVPUSH ONETIME PRN PRN Reason: Pain Hydromorphone HCl (Dilaudid) 0.5 mg IVPUSH ONETIME ONE Stop: 03/29/17 11:15 Last Admin: 03/29/17 11:20 Dose: 0.5 mg Sodium Chloride (Normal Saline) 1,000 mls @ 999 mls/hr IV STAT ONE Stop: 03/29/17 11:05 Last Admin: 03/29/17 10:36 Dose: 999 mls/hr Levofloxacin/Dextrose 500 mg/ (Premix) 100 mls @ 100 mls/hr IV ONETIME ONE Stop: 03/29/17 13:00 Last Admin: 03/29/17 12:37 Dose: 100 mls/hr Piperacillin Sod/Tazobactam (Sod 3.375 gm/ Sodium Chloride) 50 mls @ 100 mls/ hr IV ONETIME ONE Stop: 03/29/17 13:35 Last Admin: 03/29/17 13:16 Dose: 100 mls/hr Sodium Chloride (Normal Saline) 1,000 mls @ 125 mls/hr IV STAT [facility] Last Admin: 03/29/17 13:17 Dose: 125 mls/hr Piperacillin Sod/Tazobactam (Sod 3.375 gm/ Sodium Chloride) 50 mls @ 100 mls/ hr IV Q6H [facility] Last Admin: 03/31/17 06:03 Dose: 100 mls/hr Sodium Chloride (Normal Saline) 1,000 mls @ 125 mls/hr IV ASDIRECTED [facility] Last Admin: 03/30/17 06:01 Dose: 125 mls/hr Ibuprofen (Motrin) 400 mg PO Q6H PRN PRN Reason: Pain Last Admin: 03/31/17 02:13 Dose: 400 mg Levothyroxine Sodium (Synthroid) 50 mcg PO ACBREAKFAST [facility] Last Admin: 03/31/17 06:31 Dose: 50 mcg Morphine Sulfate (Morphine) 1 mg IVPUSH Q3H PRN PRN Reason: Pain Ondansetron HCl (Zofran) 4 mg IVPUSH Q4H PRN PRN Reason: Nausea Oxycodone HCl (Oxycodone) 5 mg PO Q4H PRN PRN Reason: Pain Last Admin: 03/31/17 09:06 Dose: 5 mg Tramadol HCl (Ultram) 50 mg PO Q6H PRN PRN Reason: Pain Last Admin: 03/31/17 04:21 Dose: 50 mg Valacyclovir HCl (Valtrex) 1,000 mg PO BID [facility] Last Admin: 03/31/17 09:06 Dose: 1,000 mg *Q Meaningful Use (DIS) - VTE *Q VTE Criteria *Q: - Stroke *Q Stroke Criteria *Q: - AMI *Q AMI Criteria *Q: <Riccardo Shah - Last Filed: 04/19/17 10:57> Discharge Summary - Patient Summary/Data Consults: Consultations 03/30/17 09:44 PT Evaluation and Treatment [CONS] Routine - Patient Data Vitals - Most Recent: Last Vital Signs Temp 36.8 C 03/31/17 08:00 Pulse 79 03/31/17 08:00 Resp 17 03/31/17 08:00 BP 116/75 03/31/17 08:00 Pulse Ox 95 03/31/17 08:00 Med Orders - Current: Current Medications Discontinued Medications Acetaminophen (Tylenol) 650 mg PO Q4H PRN PRN Reason: Pain (mild 1-3) Last Admin: 03/31/17 09:06 Dose: 650 mg Apixaban (Eliquis) 5 mg PO BID [facility] Last Admin: 03/31/17 08:07 Dose: 5 mg Clopidogrel Bisulfate (Plavix) 75 mg PO DAILY [facility] Last Admin: 03/31/17 08:07 Dose: 75 mg Gabapentin (Neurontin) 300 mg PO DAILY [facility] Last Admin: 03/31/17 08:07 Dose: 300 mg Gabapentin (Neurontin) 300 mg PO BEDTIME [facility] Last Admin: 03/29/17 23:13 Dose: Not Given Hydromorphone HCl (Dilaudid) 0.5 mg IVPUSH ONETIME PRN PRN Reason: Pain Hydromorphone HCl (Dilaudid) 0.5 mg IVPUSH ONETIME PRN PRN Reason: Pain Hydromorphone HCl (Dilaudid) 0.5 mg IVPUSH ONETIME ONE Stop: 03/29/17 11:15 Last Admin: 03/29/17 11:20 Dose: 0.5 mg Sodium Chloride (Normal Saline) 1,000 mls @ 999 mls/hr IV STAT ONE Stop: 03/29/17 11:05 Last Admin: 03/29/17 10:36 Dose: 999 mls/hr Levofloxacin/Dextrose 500 mg/ (Premix) 100 mls @ 100 mls/hr IV ONETIME ONE Stop: 03/29/17 13:00 Last Admin: 03/29/17 12:37 Dose: 100 mls/hr Piperacillin Sod/Tazobactam (Sod 3.375 gm/ Sodium Chloride) 50 mls @ 100 mls/ hr IV ONETIME ONE Stop: 03/29/17 13:35 Last Admin: 03/29/17 13:16 Dose: 100 mls/hr Sodium Chloride (Normal Saline) 1,000 mls @ 125 mls/hr IV STAT [facility] Last Admin: 03/29/17 13:17 Dose: 125 mls/hr Piperacillin Sod/Tazobactam (Sod 3.375 gm/ Sodium Chloride) 50 mls @ 100 mls/ hr IV Q6H [facility] Last Admin: 03/31/17 06:03 Dose: 100 mls/hr Sodium Chloride (Normal Saline) 1,000 mls @ 125 mls/hr IV ASDIRECTED [facility] Last Admin: 03/30/17 06:01 Dose: 125 mls/hr Ibuprofen (Motrin) 400 mg PO Q6H PRN PRN Reason: Pain Last Admin: 03/31/17 02:13 Dose: 400 mg Levothyroxine Sodium (Synthroid) 50 mcg PO ACBREAKFAST [facility] Last Admin: 03/31/17 06:31 Dose: 50 mcg Morphine Sulfate (Morphine) 1 mg IVPUSH Q3H PRN PRN Reason: Pain Ondansetron HCl (Zofran) 4 mg IVPUSH Q4H PRN PRN Reason: Nausea Oxycodone HCl (Oxycodone) 5 mg PO Q4H PRN PRN Reason: Pain Last Admin: 03/31/17 09:06 Dose: 5 mg Tramadol HCl (Ultram) 50 mg PO Q6H PRN PRN Reason: Pain Last Admin: 03/31/17 04:21 Dose: 50 mg Valacyclovir HCl (Valtrex) 1,000 mg PO BID [facility] Last Admin: 03/31/17 09:06 Dose: 1,000 mg *Q Meaningful Use (DIS) - VTE *Q VTE Criteria *Q: - Stroke *Q Stroke Criteria *Q: - AMI *Q AMI Criteria *Q: - Free Text/Narrative Note: I have examined the patient. I have discussed findings and treatment plan with the resident. I agree with the assessment and plan outlined in the following resident's note.
== END 2017-03-31 12:57 | disposition home or self-care (01) ==
LOC: MW.ED 09:38 → MW.ICU 13:09
PROVIDERS: ADMIT Internal Medicine; ATTEND Internal Medicine
DX: N12 Tubulo-interstitial nephritis, not specified as acute or chronic (principal); I95.9 Hypotension, unspecified; I25.10 Atherosclerotic heart disease of native coronary artery without angina pectoris; B02.9 Zoster without complications; G30.9 Alzheimer's disease, unspecified; F02.80 Dementia in other diseases classified elsewhere, unspecified severity, without behavioral disturbance, psychotic disturbance, mood disturbance, and anxiety; E03.9 Hypothyroidism, unspecified; Z90.49 Acquired absence of other specified parts of digestive tract; Z90.710 Acquired absence of both cervix and uterus; Z88.5 Allergy status to narcotic agent; Z79.899 Other long term (current) drug therapy; Z79.02 Long term (current) use of antithrombotics/antiplatelets; Z86.73 Personal history of transient ischemic attack (TIA), and cerebral infarction without residual deficits; Z90.89 Acquired absence of other organs; Z90.722 Acquired absence of ovaries, bilateral; Z85.41 Personal history of malignant neoplasm of cervix uteri; Z87.891 Personal history of nicotine dependence
CPT/HCPCS: 36415; 74176; 80048; 80053; 81001; 82150; 83605; 83690; 84484; 85025; 87040; 87086; 96361; 96365; 96367; 96375; 97161; 99285; A9270; J1170; J1956; J2543; J7040; J7050; 96366; 99284; G0378; J2270

== ENCOUNTER 2018-08-15 01:35 | Observation (INO) | payer MEDICARE, OTHER ==
[2018-08-15] MEDS ORDERED: Nitroglycerin 0.4 MG Tab.SL SL STA (01:40)
--- NOTE | 2018-08-15 01:40 | EDM.PDOC ---
ED HPI GENERAL MEDICAL PROBLEM - General Stated Complaint: CHEST PAIN Time Seen by Provider: 08/15/18 01:40 Source of Information: Reports: Patient - History of Present Illness INITIAL COMMENTS - FREE TEXT/NARRATIVE: HISTORY AND PHYSICAL: History of present illness: [Patient presents with chest pain 5 out of 10 nonradiating no association with shortness of breath or diaphoresis no radiation arm neck or jaw Pain for several hours tonight she did take 4 baby aspirin in a couple of nitroglycerin doses at home she states the nitroglycerin did improve pain she arrives via EMS as such in no distress no pain behaviors I can clearly reproduce pain on the left side of her chest, she has been fishing from a boat trolling learners or believe she has a chest wall spasm however she does state that she improved with nitroglycerin and does have cardiac history since hence will be keeping her for observation At current no fever nausea vomiting chills sweats no shortness of breath or diaphoresis no headache dizziness or palpitation no bowel or urine symptoms] Review of systems: As per history of present illness and below otherwise all systems reviewed and negative. Past medical history: As per history of present illness and as reviewed below otherwise noncontributory. Surgical history: As per history of present illness and as reviewed below otherwise noncontributory. Social history: No reported history of drug or alcohol abuse. Family history: As per history of present illness and as reviewed below otherwise noncontributory. Physical exam: HEENT: Atraumatic, normocephalic, pupils reactive, negative for conjunctival pallor or scleral icterus, mucous membranes moist, throat clear, neck supple, nontender, trachea midline. Lungs: Clear to auscultation, breath sounds equal bilaterally, chest nontenderOn right can reproduce pain on the left from the level of the clavicle down to T4 level . Heart: S1S2, regular, negative for clicks, rubs, or JVD. Abdomen: Soft, nondistended, nontender. Negative for masses or hepatosplenomegaly. Negative for costovertebral tenderness. Pelvis: Stable nontender. Genitourinary: Deferred. Rectal: Deferred. Extremities: Atraumatic, negative for cords or calf pain. Neurovascular unremarkable. Neuro: Awake, alert, oriented. Cranial nerves II through XII unremarkable. Cerebellum unremarkable. Motor and sensory unremarkable throughout. Exam nonfocal. Diagnostics: [CBC CMP troponin INR EKG Chest 1 view ] Therapeutics: [ aspirin 324 mg chewable provided at home ] Nitroglycerin 2 at home, one sublingual provided here patient states she did receive some benefit from nitroglycerin Morphine was considered however she does have an allergy Tylox 40 mg IV provided no benefit Impression: atypical chest freeman definitive disposition and diagnosis as appropriate pending reevaluation and review of above. chest Pain Score (Numeric/FACES): 5 - Related Data Allergies Allergy/AdvReac Type Severity Reaction Status Date / Time morphine Allergy Cannot Verified 08/15/18 01:48 Remember Home Meds: Home Meds Apixaban [Eliquis] 5 mg PO BID 03/22/17 [History] Atenolol mg PO DAILY 03/22/17 [History] Baclofen mg PO BEDTIME 03/22/17 [History] Clopidogrel [Plavix] 75 mg PO DAILY 03/22/17 [History] Donepezil HCl [Aricept] 10 mg PO BEDTIME 03/22/17 [History] Levothyroxine [Synthroid] 50 mcg PO ACBREAKFAST 03/22/17 [History] Memantine [Namenda] mg PO BID 03/22/17 [History] Multivitamin [Multivitamins] 1 cap DAILY 03/22/17 [History] Simvastatin [Zocor] 10 mg PO DAILY 03/22/17 [History] Past Medical History Cardiovascular History: Reports: High Cholesterol, Hypertension, [place], Stents Other Cardiovascular History: rheumatic fever Neurological History: Reports: Alzheimers Disease, TIA Psychiatric History: Reports: Alzheimers Disease Endocrine/Metabolic History: Reports: Hypothyroidism Oncologic (Cancer) History: Reports: Cervix - Infectious Disease History Infectious Disease History: Reports: Chicken Pox, Measles, Mumps, Rheumatic Fever, Shingles - Past Surgical History HEENT Surgical History: Reports: Tonsillectomy GI Surgical History: Reports: Appendectomy Female Surgical History: Reports: Hysterectomy, Oophorectomy Other Female Surgeries/Procedures: hx cervical cancer Social & Family History - Family History Family Medical History: Noncontributory - Caffeine Use Caffeine Use: Reports: None Caffeine Use Comment: every once in a while ED ROS GENERAL - Review of Systems Review Of Systems: See Below ED EXAM, GENERAL - Physical Exam Exam: See Below Course - Vital Signs Last Recorded V/S: Last Vital Signs Temp 97 F 08/15/18 01:35 Pulse 83 07/03/19 01:35 Resp 16 08/15/18 02:04 BP 98/60 08/15/18 02:04 Pulse Ox 96 08/15/18 02:04 - Orders/Labs/Meds Orders: Active Orders 24 hr Category Date Time Status EKG Documentation Completion [RC] STAT Care 08/15/18 01:38 Active UA RFX BINDU AND CULT IF INDIC [URIN] Stat Lab 08/15/18 01:38 Ordered Labs: Laboratory Tests 08/15/18 08/15/18 08/15/18 Range/Units 01:40 01:40 01:40 WBC 6.39 (4.0-11.0) K/uL RBC 3.89 L (4.30-5.90) M/uL Hgb 12.3 (12.0-16.0) g/dL Hct 38.5 (36.0-46.0) % MCV 99.0 H (80.0-98.0) fL MCH 31.6 (27.0-32.0) pg MCHC 31.9 (31.0-37.0) g/dL RDW Std Deviation 51.9 (28.0-62.0) fl RDW Coeff of Shaan 15 (11.0-15.0) % Plt Count 213 (150-400) K/uL MPV 9.00 (7.40-12.00) fL Neut % (Auto) 46.0 L (48.0-80.0) % Lymph % (Auto) 45.7 H (16.0-40.0) % [place] % (Auto) 6.6 (0.0-15.0) % Eos % (Auto) 1.1 (0.0-7.0) % Baso % (Auto) 0.6 (0.0-1.5) % Neut # (Auto) 2.9 (1.4-5.7) K/uL Lymph # (Auto) 2.9 H (0.6-2.4) K/uL [place] # (Auto) 0.4 (0.0-0.8) K/uL Eos # (Auto) 0.1 (0.0-0.7) K/uL Baso # (Auto) 0.0 (0.0-0.1) K/uL Nucleated RBC % 0.0 /100WBC Nucleated RBCs # 0 K/uL INR 0.97 Sodium 143 (136-145) mmol/L Potassium 3.8 (3.5-5.1) mmol/L Chloride 106 (98-107) mmol/L Carbon Dioxide 29.7 (21.0-32.0) mmol/L BUN 26 H (7.0-18.0) mg/dL Creatinine 1.1 H (0.6-1.0) mg/dL Est Cr Clr Drug Dosing 36.98 mL/min Estimated GFR (MDRD) 48.2 ml/min Glucose 115 H (74-106) mg/dL Calcium 8.4 L (8.5-10.1) mg/dL Total Bilirubin 0.2 (0.2-1.0) mg/dL AST 13 L (15-37) IU/L ALT 13 L (14-63) IU/L Alkaline Phosphatase 74 (46-116) U/L Troponin I < 0.050 (0.000-0.056) ng/mL Total Protein 6.9 (6.4-8.2) g/dL Albumin 3.4 (3.4-5.0) g/dL Globulin 3.5 (2.6-4.0) g/dL Albumin/Globulin Ratio 1.0 (0.9-1.6) Lipase 147 (73-393) U/L Meds: Medications Discontinued Medications Generic Name Dose Route Start Last Admin Trade Name Marlonq PRN Reason Stop Dose Admin Sodium Chloride Confirm 08/15/18 01:52 08/15/18 01:56 Normal Saline Administered 08/15/18 01:53 20 mls/hr Dose Administration 20 mls @ as directed .ROUTE .STK-MED ONE Morphine Sulfate 2 mg 08/15/18 01:47 08/15/18 01:50 Morphine IVPUSH 08/15/18 01:48 Not Given ONETIME ONE Nitroglycerin 0.4 mg 08/15/18 01:40 08/15/18 01:49 Nitrostat SL 08/15/18 01:41 0.4 mg NOW STA Administration Pantoprazole Sodium 80 mg 08/15/18 01:47 08/15/18 01:56 Protonix Iv IVPUSH 08/15/18 01:48 80 mg .BOLUS ONE Administration Departure - Departure Time of Disposition: 03:04 Disposition: Refer to Observation Condition: Fair Clinical Impression: Atypical chest pain - Discharge Information - My Orders Last 24 Hours: My Active Orders 08/15/18 01:38 EKG Documentation Completion [RC] STAT UA RFX BNIDU AND CULT IF INDIC [URIN] Stat - Assessment/Plan Last 24 Hours: My Active Orders 08/15/18 01:38 EKG Documentation Completion [RC] STAT UA RFX BINDU AND CULT IF INDIC [URIN] Stat
[2018-08-15] MEDS ORDERED: Morphine 2 MG/ML Syringe IVPUSH ONE (01:47)
[2018-08-15] MEDS ORDERED: Pantoprazole 40 MG Vial IVPUSH ONE (01:47)
[2018-08-15] MEDS ORDERED: Sodium Chloride 0.9% 20 ML ONE (01:52)
[2018-08-15 02:17] LABS: CHLORIDE,CL 106 mmol/L (98-107); SODIUM,NA 143 mmol/L (136-145)
--- NOTE | 2018-08-15 02:21 | CR ---
INDICATION: Chest pain TECHNIQUE: Chest 1 view COMPARISON: None FINDINGS: Cardiovascular and mediastinum: Heart size and vasculature are normal in caliber and appearance. Lungs and pleural spaces: Lungs are clear. No sign of infiltrate or mass. No sign of pleural effusion. No pneumothorax. Bones and soft tissues: No significant findings. IMPRESSION: Unremarkable chest. Dictated by Michael Frazier MD @ Aug 15 2018 2:18AM Signed by Dr. Michael Frazier @ Aug 15 2018 2:18AM
[2018-08-15] MEDS ORDERED: Acetaminophen 325 MG Tab PO PRN (08:07)
[2018-08-15] MEDS ORDERED: Ondansetron 4 MG/2 ML SDV IVPUSH PRN (08:07)
--- NOTE | 2018-08-15 08:10 | PCM.HP ---
H&P History of Present Illness - General Date of Service: 08/15/18 Admit Problem/Dx: Admission Diagnosis/Problem Admission Diagnosis/Problem Atypical chest pain Source of Information: Patient History Limitations: Reports: No Limitations - History of Present Illness Initial Comments - Free Text/Narative: This 77 year old female with pmh of HTN, CAD, and Alzheimer's presented to the ED with concerns of L sided chest and upper back pain. She reports it hurts to move her L arm under her breast and around her back. She denies nausea of diaphoresis. Mild SOB but it is more she can't take a deep breath due to the pain. She is a poor historian as there is likely some dementia. No family at bedside. She reports she has been fishing with her son recently, Initially she denied this. She is unsure of her medications or medical history exactly. She reports she did take some Nitro at home, which helped somewhat. She does report for frequency and urgency in urination recently, no dysuria. She reports some tobacco use recently, rare alcohol use and no recreational drug use. In the ED, labwork WNL and at baseline, BUN 26, Cr 1.1. CXR negative. EKG reveals SR with no acute St segment changes or signs of ischemia. UA positive + 3 bacteria, moderate leukocyte esterase, +nitrite. She was treated with Nitro x 1. Took ASA at home. VS stable. She was admitted with atypical chest pain. Generalized Pain Score (Numeric/FACES): 7 chest Pain Score (Numeric/FACES): 0 - Related Data Allergies/Adverse Reactions: Allergies Allergy/AdvReac Type Severity Reaction Status Date / Time morphine Allergy Cannot Verified 08/15/18 05:16 Remember Home Medications: Home Meds Apixaban [Eliquis] 5 mg PO BIDMEALS 03/22/17 [History] Levothyroxine [Synthroid] 50 mcg PO ACBREAKFAST 03/22/17 [History] Memantine [Namenda] 10 mg PO BID 03/22/17 [History] Fluticasone Propionate [Flonase] 1 spray NASBOTH DAILY bottle 08/15/18 [Rx] Metoprolol Succinate [Toprol XL] 12.5 mg PO DAILY 08/15/18 [History] Multivit-Min/FA/Lycopene/Lut [Centrum Silver Tablet] 1 tab PO DAILY 08/15/18 [ History] Dewitt-3/DHA/Epa/Fish Oil [Fish Oil 1,000 mg Softgel] 1,000 mg PO DAILY@1200 05/01 [History] Pantoprazole Sodium [Protonix] 40 mg PO DAILY 08/15/18 [History] Rosuvastatin [Crestor] 10 mg PO DAILY 08/15/18 [History] Past Medical History HEENT History: Reports: Impaired Vision, Other (See Below) Other HEENT History: wears glasses for reading, not with pt Cardiovascular History: Reports: Heart Murmur, High Cholesterol, Hypertension, [place], Stents Other Cardiovascular History: rheumatic fever Respiratory History: Reports: None. Denies: Asthma, COPD Gastrointestinal History: Reports: None Genitourinary History: Reports: None [employer] History: Reports: Neurological History: Reports: Alzheimers Disease, TIA Psychiatric History: Reports: Alzheimers Disease Endocrine/Metabolic History: Reports: Hypothyroidism Oncologic (Cancer) History: Reports: Cervix - Infectious Disease History Infectious Disease History: Reports: Chicken Pox, Measles, Mumps, Rheumatic Fever, Shingles - Past Surgical History HEENT Surgical History: Reports: Tonsillectomy GI Surgical History: Reports: Appendectomy Female Surgical History: Reports: Hysterectomy, Oophorectomy Other Female Surgeries/Procedures: hx cervical cancer Social & Family History - Family History Family Medical History: Noncontributory - Tobacco Use Smoking Status *Q: Former Smoker Used Tobacco, but Quit: Yes Month/Year Tobacco Last Used: 0 Tobacco Use Comment: states only smoked for 3 years and quit several years ago but now occasionally has one with her son - Caffeine Use Caffeine Use: Reports: Coffee Caffeine Use Comment: every once in a while - Alcohol Use Alcohol Use History: No - Recreational Drug Use Recreational Drug Use: No - Living Situation & Occupation Living situation: Reports: with Family Occupation: Retired H&P Review of Systems - Review of Systems: Review Of Systems: See Below General: Reports: No Symptoms. Denies: Fever, Chills, Malaise, Weakness HEENT: Reports: No Symptoms. Denies: Headaches, Sinus Congestion, Vertigo Pulmonary: Reports: No Symptoms. Denies: Shortness of Breath Cardiovascular: Reports: Chest Pain (to L chest and upper back. ) Gastrointestinal: Denies: Abdominal Pain, Black Stool, Bloody Stool, Nausea, Vomiting Genitourinary: Reports: Frequency, Urgency. Denies: Dysuria, Hematuria, Retention, Discharge, Flank Pain Musculoskeletal: Reports: Shoulder Pain (L shoulder and upper back) Skin: Reports: No Symptoms Psychiatric: Reports: No Symptoms Neurological: Reports: No Symptoms Hematologic/Lymphatic: Reports: No Symptoms Immunologic: Reports: No Symptoms Exam - Exam Exam: See Below - Vital Signs Vital Signs: Last Vital Signs Temp 97.8 F 08/15/18 07:50 Pulse 69 08/15/18 07:50 Resp 12 08/15/18 07:50 BP 116/58 L 08/15/18 07:50 Pulse Ox 93 L 08/15/18 07:50 Weight: 65.862 kg - Exam General: Alert, Oriented, Cooperative HEENT: Conjunctiva Clear, Mucosa Moist & [place], Posterior Pharynx Clear Lungs: Clear to Auscultation, Normal Respiratory Effort Cardiovascular: Regular Rate, Regular Rhythm, Systolic Murmur (grade 4-5/6 holosystolic murmur), Other (pain to chest wall with palpation, along with pain when L shoulder and upper back palpated. Which elicits the same pain she is feeling.) GI/Abdominal Exam: Normal Bowel Sounds, Soft, Non-Tender Back Exam: Normal Inspection, Full Range of Motion. No: CVA Tenderness (L), CVA Tenderness (R) Extremities: Normal Inspection, Normal Range of Motion, Non-Tender, No Pedal Edema Neuro Extensive - Mental Status: Alert, Oriented x3, Normal Mood/Affect. No: Memory Intact (dementia) Neuro Extensive - Motor, Sensory, Reflexes: CN II-XII Intact Psychiatric: Alert, Normal Affect, Normal Mood - Patient Data Lab Results Last 24 hrs: Laboratory Results - last 24 hr 08/15/18 08/15/18 08/15/18 Range/Units 01:40 01:40 01:40 WBC 6.39 (4.0-11.0) K/uL RBC 3.89 L (4.30-5.90) M/uL Hgb 12.3 (12.0-16.0) g/dL Hct 38.5 (36.0-46.0) % MCV 99.0 H (80.0-98.0) fL MCH 31.6 (27.0-32.0) pg MCHC 31.9 (31.0-37.0) g/dL RDW Std Deviation 51.9 (28.0-62.0) fl RDW Coeff of [place]aan 15 (11.0-15.0) % Plt Count 213 (150-400) K/uL MPV 9.00 (7.40-12.00) fL Neut % (Auto) 46.0 L (48.0-80.0) % Lymph % (Auto) 45.7 H (16.0-40.0) % [place] % (Auto) 6.6 (0.0-15.0) % Eos % (Auto) 1.1 (0.0-7.0) % Baso % (Auto) 0.6 (0.0-1.5) % Neut # (Auto) 2.9 (1.4-5.7) K/uL Lymph # (Auto) 2.9 H (0.6-2.4) K/uL [place] # (Auto) 0.4 (0.0-0.8) K/uL Eos # (Auto) 0.1 (0.0-0.7) K/uL Baso # (Auto) 0.0 (0.0-0.1) K/uL Nucleated RBC % 0.0 /100WBC Nucleated RBCs # 0 K/uL INR 0.97 Sodium 143 (136-145) mmol/L Potassium 3.8 (3.5-5.1) mmol/L Chloride 106 (98-107) mmol/L Carbon Dioxide 29.7 (21.0-32.0) mmol/L BUN 26 H (7.0-18.0) mg/dL Creatinine 1.1 H (0.6-1.0) mg/dL Est Cr Clr Drug Dosing 36.98 mL/min Estimated GFR (MDRD) 48.2 ml/min Glucose 115 H (74-106) mg/dL Calcium 8.4 L (8.5-10.1) mg/dL Total Bilirubin 0.2 (0.2-1.0) mg/dL AST 13 L (15-37) IU/L ALT 13 L (14-63) IU/L Alkaline Phosphatase 74 (46-116) U/L Troponin I < 0.050 (0.000-0.056) ng/mL Total Protein 6.9 (6.4-8.2) g/dL Albumin 3.4 (3.4-5.0) g/dL Globulin 3.5 (2.6-4.0) g/dL Albumin/Globulin Ratio 1.0 (0.9-1.6) Lipase 147 (73-393) U/L Urine Color Urine Appearance Urine pH (5.0-8.0) Ur Specific [place] (1.001-1.035) Urine Protein (NEGATIVE) mg/dL Urine Glucose (UA) (NEGATIVE) mg/dL Urine Ketones (NEGATIVE) mg/dL Urine Occult Blood (NEGATIVE) Urine Nitrite (NEGATIVE) Urine Bilirubin (NEGATIVE) Urine Urobilinogen (<2.0) EU/dL Ur Leukocyte Esterase (NEGATIVE) Urine RBC (0-2/HPF) Urine WBC (0-5/HPF) Ur Epithelial Cells (NONE-FEW) Urine Bacteria (NEGATIVE) Urine Mucus (NONE-MOD) 08/15/18 Range/Units 03:15 WBC (4.0-11.0) K/uL RBC (4.30-5.90) M/uL Hgb (12.0-16.0) g/dL Hct (36.0-46.0) % MCV (80.0-98.0) fL MCH (27.0-32.0) pg MCHC (31.0-37.0) g/dL RDW Std Deviation (28.0-62.0) fl RDW Coeff of [place] (11.0-15.0) % Plt Count (150-400) K/uL MPV (7.40-12.00) fL Neut % (Auto) (48.0-80.0) % Lymph % (Auto) (16.0-40.0) % [place] % (Auto) (0.0-15.0) % Eos % (Auto) (0.0-7.0) % Baso % (Auto) (0.0-1.5) % Neut # (Auto) (1.4-5.7) K/uL Lymph # (Auto) (0.6-2.4) K/uL [place] # (Auto) (0.0-0.8) K/uL Eos # (Auto) (0.0-0.7) K/uL Baso # (Auto) (0.0-0.1) K/uL Nucleated RBC % /100WBC Nucleated RBCs # K/uL INR Sodium (136-145) mmol/L Potassium (3.5-5.1) mmol/L Chloride (98-107) mmol/L Carbon Dioxide (21.0-32.0) mmol/L BUN (7.0-18.0) mg/dL Creatinine (0.6-1.0) mg/dL Est Cr Clr Drug Dosing mL/min Estimated GFR (MDRD) ml/min Glucose (74-106) mg/dL Calcium (8.5-10.1) mg/dL Total Bilirubin (0.2-1.0) mg/dL AST (15-37) IU/L ALT (14-63) IU/L Alkaline Phosphatase (46-116) U/L Troponin I (0.000-0.056) ng/mL Total Protein (6.4-8.2) g/dL Albumin (3.4-5.0) g/dL Globulin (2.6-4.0) g/dL Albumin/Globulin Ratio (0.9-1.6) Lipase (73-393) U/L Urine Color YELLOW Urine Appearance CLOUDY Urine pH 5.5 (5.0-8.0) Ur Specific [place] 1.010 (1.001-1.035) Urine Protein NEGATIVE (NEGATIVE) mg/dL Urine Glucose (UA) NEGATIVE (NEGATIVE) mg/dL Urine Ketones NEGATIVE (NEGATIVE) mg/dL Urine Occult Blood TRACE-INTACT H (NEGATIVE) Urine Nitrite POSITIVE H (NEGATIVE) Urine Bilirubin NEGATIVE (NEGATIVE) Urine Urobilinogen 0.2 (<2.0) EU/dL Ur Leukocyte Esterase MODERATE H (NEGATIVE) Urine RBC NONE SEEN (0-2/HPF) Urine WBC 12-16 (0-5/HPF) Ur Epithelial Cells RARE (NONE-FEW) Urine Bacteria 3+ H (NEGATIVE) Urine Mucus LIGHT (NONE-MOD) Result Diagrams: 08/15/18 01:40 08/15/18 01:40 - Problem List (1) Atypical chest pain SNOMED Code(s): 700324451 ICD Code: R07.89 - OTHER CHEST PAIN Status: Acute (2) HTN (hypertension) SNOMED Code(s): 55360792 ICD Code: I10 - ESSENTIAL (PRIMARY) HYPERTENSION Status: Chronic Qualifiers: Hypertension type: essential hypertension Qualified Code(s): I10 - Essential (primary) hypertension (3) CAD (coronary artery disease) SNOMED Code(s): 25970943 ICD Code: I25.10 - ATHSCL HEART DISEASE OF [place] CORONARY ARTERY W/O ANG PCTRS Status: Chronic (4) Dementia SNOMED Code(s): 95812019 ICD Code: F03.90 - UNSPECIFIED DEMENTIA WITHOUT BEHAVIORAL DISTURBANCE Status: Chronic (5) Hx of rheumatic fever SNOMED Code(s): 304498944 ICD Code: Z86.79 - PERSONAL HISTORY OF OTHER DISEASES OF THE CIRCULATORY SYSTEM Status: Chronic Problem List Initiated/Reviewed/Updated: Yes Orders Last 24hrs: Active Orders 24 hr Category Date Time Status Admission Status [Patient Status] [ADT] Stat ADT 08/15/18 03:04 Active Intake and Output [RC] QSHIFT Care 08/15/18 08:07 Active Oxygen Therapy [RC] PRN Care 08/15/18 08:07 Active Telemetry Monitoring [Cardiac Monitoring] [RC] . Care 08/15/18 03:20 Active DIRECTED Up With Assistance [RC] ASDIRECTED Care 08/15/18 08:07 Active VTE/DVT Education [RC] PER UNIT ROUTINE Care 08/15/18 08:07 Active Vital Signs [RC] Q4H Care 08/15/18 08:07 Active Regular Diet [DIET] Diet 08/15/18 Breakfast Active CULTURE URINE [RM] Stat Lab 08/15/18 03:15 Received TROPONIN I [CHEM] Routine Lab 08/15/18 07:36 Received TROPONIN I [CHEM] Routine Lab 08/15/18 13:30 Ordered Acetaminophen [Tylenol] Med 08/15/18 08:07 Ordered 650 mg PO Q4H PRN Ondansetron [Zofran] Med 08/15/18 08:07 Ordered 4 mg IVPUSH Q4H PRN cefTRIAXone [Rocephin in Dextrose,Iso-Osm 1 GM/50 ML] 1 Med 08/15/18 08:15 Ordered gm Premix Bag 1 bag IV Q24H Resuscitation Status Routine Resus Stat 08/15/18 08:07 Ordered Medication Orders Acetaminophen (Tylenol) 650 mg PO Q4H PRN PRN Reason: Pain (Mild 1-3) Ceftriaxone Sodium/Dextrose 1 (gm/ Premix) 50 mls @ 100 mls/hr IV Q24H MICHELLE Ondansetron HCl (Zofran) 4 mg IVPUSH Q4H PRN PRN Reason: Nausea Assessment/Plan Comment:: This 77 year old female admitted with atypical chest pain 1. Atypical chest pain: Trend troponins, monitor on telemetry. Pain is likely musculoskeletal as it is reproducible with palpation to ribcage and upper back. 2. UTI: UC pending. Will start Rocephin. 3. CAD: Continue Plavix and Xarelto. Verifying home med list with son. Discharge Plan: All troponins negative no EKG changes. Pain continues, but is reproducible and musculoskeletal in nature. Julissa will be discharged home today with son. She plans on heading back to [place] in a week and will follow up with PCP there. No medication changes. Will send Keflex for UTI for next 5 days. UC pending.
[2018-08-15] MEDS ORDERED: cefTRIAXone 1 GM in Premix Bag 1 BAG IV SCH (08:15)
[2018-08-15] MEDS ORDERED: Fluticasone Propionate Nasal Spray 16 GM Bottle NASBOTH SCH (09:15)
[2018-08-15] MEDS ORDERED: Metoprolol Succinate 25 MG Tab.ER PO SCH (14:00)
[2018-08-15] MEDS ORDERED: Apixaban 5 MG Tab PO SCH (17:00)
[2018-08-15] MEDS ORDERED: Memantine 10 MG Tab PO SCH (21:00)
== END 2018-08-15 15:05 | disposition home or self-care (01) ==
LOC: MW.ED 01:35 → MW.MS 03:04
PROVIDERS: ADMIT Internal Medicine; ATTEND Internal Medicine
DX: R07.89 Other chest pain (principal); I25.10 Atherosclerotic heart disease of native coronary artery without angina pectoris; I10 Essential (primary) hypertension; N39.0 Urinary tract infection, site not specified; G30.9 Alzheimer's disease, unspecified; F02.80 Dementia in other diseases classified elsewhere, unspecified severity, without behavioral disturbance, psychotic disturbance, mood disturbance, and anxiety; I25.2 Old myocardial infarction; E03.9 Hypothyroidism, unspecified; Z86.73 Personal history of transient ischemic attack (TIA), and cerebral infarction without residual deficits; Z98.890 Other specified postprocedural states; Z87.891 Personal history of nicotine dependence; Z86.79 Personal history of other diseases of the circulatory system; Z88.5 Allergy status to narcotic agent; Z79.899 Other long term (current) drug therapy; Z79.01 Long term (current) use of anticoagulants; Z95.5 Presence of coronary angioplasty implant and graft
CPT/HCPCS: 36415; 71045; 80053; 81001; 83690; 84484; 85025; 85610; 87086; 93005; 96374; 96375; 99285; A4217; A9270; C9113; G0378; J0696; 87088; 87186

== ENCOUNTER 2019-12-06 19:04 | Inpatient (IN) | payer MEDICARE, OTHER ==
[2019-12-06] MEDS ORDERED: Sodium Chloride 0.9% 2.5 ML Syringe FLUSH PRN (19:39)
[2019-12-06] MEDS ORDERED: Sodium Chloride 0.9% 10 ML Syringe FLUSH PRN (19:39)
[2019-12-06] MEDS ORDERED: Ondansetron 4 MG/2 ML SDV IVPUSH ONE (19:50)
[2019-12-06] MEDS ORDERED: Lactated Ringers 1,000 ML IV ONE (19:50)
[2019-12-06] MEDS ORDERED: fentaNYL 50 MCG/ML SDV IVPUSH ONE (19:52)
--- NOTE | 2019-12-06 20:03 | EDM.PDOC ---
ED HPI GENERAL MEDICAL PROBLEM - General Chief Complaint: Abdominal Pain Stated Complaint: BOTTOM RIGHT SIDE PAIN Time Seen by Provider: 12/06/19 19:28 Source of Information: Reports: Patient History Limitations: Reports: No Limitations - History of Present Illness INITIAL COMMENTS - FREE TEXT/NARRATIVE: 79-year-old female with history of hysterectomy, appendectomy, oophorectomy, HTN, ID with stents, HLD, cervical cancer, TIA, Alzheimer's disease was brought in by family members for abdominal pain 3 hours ago. She was in the car on her way back from [place] when she started developing diffuse abdominal pain, described as constant, aching sensation, no alleviating or exacerbating factors, moderate. Associated with nausea and vomiting. She has not had a bowel movement since this morning. Denies fever, chills, chest pain, shortness of breath. ROS: A 10-point review of systems, other than pertinent positives and negatives as stated per HPI, is otherwise negative Past medical history: No additional pertinent history Past Surgical history: No additional pertinent history Social history: No additional pertinent history Family history: No additional pertinent history PHYSICAL EXAM General: AOx4, GCS = 15, moderate distress HEENT: dry mucous membrane Neck: supple, no meningismus, no Kernig or Brudzinski Cardiac: S1S2 RRR Respiratory: CTAB, no crackles or rales, no wheezing Abdomen: periumbilical ttp, distended Back: nontender Musculoskeletal: NVI distally, no deformity Neuro: No focal deficits lower abdominal Pain Score (Numeric/FACES): 10 - Related Data Allergies Allergy/AdvReac Type Severity Reaction Status Date / Time morphine Allergy Cannot Verified 08/15/18 05:16 Remember Home Meds: Home Meds Apixaban [Eliquis] 5 mg PO BIDMEALS 03/22/17 [History] Levothyroxine [Synthroid] 50 mcg PO ACBREAKFAST 03/22/17 [History] Memantine [Namenda] 10 mg PO BID 03/22/17 [History] Fluticasone Propionate [Flonase] 1 spray NASBOTH DAILY bottle 08/15/18 [Rx] Metoprolol Succinate [Toprol XL] 12.5 mg PO DAILY 08/15/18 [History] Multivit-Min/FA/Lycopen/Lutein [Centrum Silver Tablet] 1 tab PO DAILY 08/15/18 [History] [place]-3/DHA/Epa/Fish Oil [Fish Oil 1,000 mg Softgel] 1,000 mg PO DAILY@1200 08/15/18 [History] Pantoprazole Sodium [Protonix] 40 mg PO DAILY 08/15/18 [History] Rosuvastatin [Crestor] 10 mg PO DAILY 08/15/18 [History] cephALEXin [Keflex] 500 mg PO Q12H #10 cap 08/15/18 [Rx] Past Medical History HEENT History: Reports: Impaired Vision, Other (See Below) Other HEENT History: wears glasses for reading, not with pt Cardiovascular History: Reports: Heart Murmur, High Cholesterol, Hypertension, ID, Stents Other Cardiovascular History: rheumatic fever Respiratory History: Reports: None Gastrointestinal History: Reports: None Genitourinary History: Reports: None 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: Neurological History: Reports: Alzheimers Disease, TIA Psychiatric History: Reports: Alzheimers Disease Endocrine/Metabolic History: Reports: Hypothyroidism Oncologic (Cancer) History: Reports: Cervix - Infectious Disease History Infectious Disease History: Reports: Chicken Pox, Measles, Mumps - Past Surgical History HEENT Surgical History: Reports: Tonsillectomy GI Surgical History: Reports: Appendectomy Female Surgical History: Reports: Hysterectomy, Oophorectomy Other Female Surgeries/Procedures: hx cervical cancer Social & Family History - Family History Family Medical History: Noncontributory - Tobacco Use Tobacco Use Status *Q: Never Tobacco User - Caffeine Use Caffeine Use: Reports: Coffee Caffeine Use Comment: every once in a while - Recreational Drug Use Recreational Drug Use: No - Living Situation & Occupation Living situation: Reports: with Family Occupation: Retired ED ROS GENERAL - Review of Systems Review Of Systems: Comprehensive ROS is negative, except as noted in HPI. (see dictation) ED EXAM, GENERAL - Physical Exam Exam: See Below (see dictation) #1 Interpretation EKG Interpretation Comments: Heart rate = 57 bpm, normal sinus rhythm, normal QRS interval, LVH, no STEMI. EKG and rhythm strip interpreted by me at 1953 Course - Vital Signs Last Recorded V/S: Last Vital Signs Temp 96.7 F L 12/06/19 19:26 Pulse 60 12/06/19 19:26 Resp 18 12/06/19 19:26 BP 147/66 H 12/06/19 19:26 Pulse Ox 92 L 12/06/19 19:26 - Orders/Labs/Meds Orders: Active Orders 24 hr Category Date Time Status Patient Status [ADT] Routine ADT 12/06/19 21:41 Ordered Cardiac Monitoring [RC] . DIRECTED Care 12/06/19 19:39 Active EKG Documentation Completion [RC] STAT Care 12/06/19 19:41 Active Pulse Oximetry [RC] ASDIRECTED Care 12/06/19 19:39 Active CULTURE BLOOD [BC] Stat Lab 12/06/19 20:17 Results CULTURE BLOOD [BC] Stat Lab 12/06/19 20:24 Results UA W/BINDU RFLX IF INDICATED [URIN] Stat Lab 12/06/19 19:41 Ordered Piperacillin/Tazobactam [Piperacil-Tazobact] 3.375 gm Med 12/06/19 21:36 Ordered Sodium Chloride 0.9% [Normal Saline] 50 ml IV ONETIME Sodium Chloride 0.9% [Saline Flush] Med 12/06/19 19:39 Active 10 ml FLUSH ASDIRECTED PRN Sodium Chloride 0.9% [Saline Flush] Med 12/06/19 19:39 Active 2.5 ml FLUSH ASDIRECTED PRN Blood Culture x2 Reflex Set [OM.PC] Stat Oth 12/06/19 19:51 Ordered Saline Lock Insert [OM.PC] Stat Oth 12/06/19 19:40 Ordered Medication Orders Piperacillin Sod/Tazobactam (Sod 3.375 gm/ Sodium Chloride) 50 mls @ 100 mls/hr IV ONETIME ONE Stop: 12/06/19 22:05 Sodium Chloride (Saline Flush) 10 ml FLUSH ASDIRECTED PRN PRN Reason: Keep Vein Open Sodium Chloride (Saline Flush) 2.5 ml FLUSH ASDIRECTED PRN PRN Reason: Keep Vein Open Labs: Laboratory Tests 12/06/19 12/06/19 12/06/19 Range/Units 19:38 19:38 19:38 WBC 11.41 H (4.0-11.0) K/uL RBC 5.15 (4.30-5.90) M/uL Hgb 16.4 H (12.0-16.0) g/dL Hct 50.2 H (36.0-46.0) % MCV 97.5 (80.0-98.0) fL MCH 31.8 (27.0-32.0) pg MCHC 32.7 (31.0-37.0) g/dL RDW Std Deviation 48.5 (28.0-62.0) fl RDW Coeff of Shaan 14 (11.0-15.0) % Plt Count 203 (150-400) K/uL MPV 9.50 (7.40-12.00) fL Neut % (Auto) 71.5 (48.0-80.0) % Lymph % (Auto) 22.2 (16.0-40.0) % [place] % (Auto) 6.0 (0.0-15.0) % Eos % (Auto) 0.2 (0.0-7.0) % Baso % (Auto) 0.1 (0.0-1.5) % Neut # (Auto) 8.2 H (1.4-5.7) K/uL Lymph # (Auto) 2.5 H (0.6-2.4) K/uL [place] # (Auto) 0.7 (0.0-0.8) K/uL Eos # (Auto) 0.0 (0.0-0.7) K/uL Baso # (Auto) 0.0 (0.0-0.1) K/uL Nucleated RBC % 0.0 /100WBC Nucleated RBCs # 0 K/uL INR 1.15 Lactate (0.20-2.00) mmol/L Sodium 142 (136-145) mmol/L Potassium 4.0 (3.5-5.1) mmol/L Chloride 102 (98-107) mmol/L Carbon Dioxide 25.7 (21.0-32.0) mmol/L BUN 21 H (7.0-18.0) mg/dL Creatinine 1.1 H (0.6-1.0) mg/dL Est Cr Clr Drug Dosing TNP Estimated GFR (MDRD) 47.9 ml/min Glucose 134 H (74-106) mg/dL Calcium 10.3 H (8.5-10.1) mg/dL Phosphorus 4.7 (2.6-4.7) mg/dL Magnesium 2.1 (1.8-2.4) mg/dL Total Bilirubin 0.6 (0.2-1.0) mg/dL AST 28 (15-37) IU/L ALT 16 (14-63) IU/L Alkaline Phosphatase 64 (46-116) U/L Troponin I < 0.050 (0.000-0.056) ng/mL B-Natriuretic Peptide (<100) PG/ML Total Protein 8.3 H (6.4-8.2) g/dL Albumin 4.2 (3.4-5.0) g/dL Globulin 4.1 H (2.6-4.0) g/dL Albumin/Globulin Ratio 1.0 (0.9-1.6) Lipase 81 (73-393) U/L SARS-CoV-2 RNA (ABDULAZIZ) (NEGATIVE) 12/06/19 12/06/19 12/06/19 Range/Units 19:38 19:38 20:17 WBC (4.0-11.0) K/uL RBC (4.30-5.90) M/uL Hgb (12.0-16.0) g/dL Hct (36.0-46.0) % MCV (80.0-98.0) fL MCH (27.0-32.0) pg MCHC (31.0-37.0) g/dL RDW Std Deviation (28.0-62.0) fl RDW Coeff of Shaan (11.0-15.0) % Plt Count (150-400) K/uL MPV (7.40-12.00) fL Neut % (Auto) (48.0-80.0) % Lymph % (Auto) (16.0-40.0) % [place] % (Auto) (0.0-15.0) % Eos % (Auto) (0.0-7.0) % Baso % (Auto) (0.0-1.5) % Neut # (Auto) (1.4-5.7) K/uL Lymph # (Auto) (0.6-2.4) K/uL [place] # (Auto) (0.0-0.8) K/uL Eos # (Auto) (0.0-0.7) K/uL Baso # (Auto) (0.0-0.1) K/uL Nucleated RBC % /100WBC Nucleated RBCs # K/uL INR Lactate 1.0 (0.20-2.00) mmol/L Sodium (136-145) mmol/L Potassium (3.5-5.1) mmol/L Chloride (98-107) mmol/L Carbon Dioxide (21.0-32.0) mmol/L BUN (7.0-18.0) mg/dL Creatinine (0.6-1.0) mg/dL Est Cr Clr Drug Dosing Estimated GFR (MDRD) ml/min Glucose (74-106) mg/dL Calcium (8.5-10.1) mg/dL Phosphorus (2.6-4.7) mg/dL Magnesium (1.8-2.4) mg/dL Total Bilirubin (0.2-1.0) mg/dL AST (15-37) IU/L ALT (14-63) IU/L Alkaline Phosphatase (46-116) U/L Troponin I (0.000-0.056) ng/mL B-Natriuretic Peptide 49 (<100) PG/ML Total Protein (6.4-8.2) g/dL Albumin (3.4-5.0) g/dL Globulin (2.6-4.0) g/dL Albumin/Globulin Ratio (0.9-1.6) Lipase (73-393) U/L SARS-CoV-2 RNA (ABDULAZIZ) NEGATIVE (NEGATIVE) Meds: Medications Generic Name Dose Route Start Last Admin Trade Name Freq PRN Reason Stop Dose Admin Piperacillin Sod/Tazobactam 50 mls @ 100 mls/hr 12/06/19 21:36 Sod 3.375 gm/ Sodium Chloride IV 12/06/19 22:05 ONETIME ONE Sodium Chloride 10 ml 12/06/19 19:39 Saline Flush FLUSH ASDIRECTED PRN Keep Vein Open Sodium Chloride 2.5 ml 12/06/19 19:39 Saline Flush FLUSH ASDIRECTED PRN Keep Vein Open Discontinued Medications Generic Name Dose Route Start Last Admin Trade Name Freq PRN Reason Stop Dose Admin Fentanyl 50 mcg 12/06/19 19:52 12/06/19 20:02 Fentanyl IVPUSH 12/06/19 19:53 50 mcg ONETIME ONE Administration Lactated Ringer's 1,000 mls @ 999 mls/hr 12/06/19 19:50 12/06/19 20:02 Ringers, Lactated IV 12/06/19 20:50 999 mls/hr .BOLUS ONE Administration Iopamidol 100 ml 12/06/19 21:01 12/06/19 21:02 Isovue Multipack-370 (76%) IVPUSH 12/06/19 21:02 100 ml ONETIME STA Administration Ondansetron HCl 4 mg 12/06/19 19:50 12/06/19 20:02 Zofran IVPUSH 12/06/19 19:51 4 mg ONETIME ONE Administration - Re-Assessments/Exams Free Text/Narrative Re-Assessment/Exam: 12/06/19 21:[address] Riccardo Shah, who agrees to admit patient. The hospitalist's documentation supersedes all other documentation on this patient with regard to any conflicts or discrepancies from this point forward. Any emergency conditions have been treated to the ability of the ED prior to admission. As discussed with Dr. Huan Shah, will consult on patient. 12/06/19 21:45 NG tube ordered, IV Zosyn ordered. Departure - Departure Time of Disposition: 21:44 Disposition: Refer to Observation Clinical Impression: Small bowel obstruction due to adhesions - Discharge Information *PRESCRIPTION DRUG MONITORING PROGRAM REVIEWED*: Not Applicable *COPY OF PRESCRIPTION DRUG MONITORING REPORT IN PATIENT KEVEN: Not Applicable Referrals: PCP,Not In Area [Primary Care Provider] - Forms: ED Department Discharge Critical Care Note - Critical Care Note Comments: CRITCAL CARE: The high probability of sudden, clinically significant deterioration in the marcela gaitan's condition required the highest level of my preparedness to intervene urgently. The services I provided to this patient were to treat and/or prevent clinically significant deterioration. Services included the following: chart data review, reviewing nursing notes and/or old charts, documentation time, heritage consultant collaboration regarding findings and treatment options, medication orders and management, direct patient care, vital sign assessments and ordering, interpreting and reviewing diagnostic studies/lab tests. Aggregate critical care time includes only time during which I was engaged in work directly related to the patient's care, as described above, whether at the bedside or elsewhere in the Emergency Department. It did not include time spent performing other reported procedures or the services of residents, students, nurses or physician assistants. Frequent interventions and/or frequent repeat evaluations were required as well as counseling and coordination of care regar ding prognosis, treatments, and discussions with patient, staff and consultants. Critical Care (excluding other procedures): 130 minutes Sepsis Event Note (ED) - Evaluation Sepsis Screening Result: No Definite Risk - Focused Exam Vital Signs: Vital Signs Temp Pulse Resp BP Pulse Ox 12/06/19 19:26 96.7 F L 60 18 147/66 H 92 L - My Orders Last 24 Hours: My Active Orders 12/06/19 19:39 Cardiac Monitoring [RC] . DIRECTED Pulse Oximetry [RC] ASDIRECTED Sodium Chloride 0.9% [Saline Flush] 10 ml FLUSH ASDIRECTED PRN Sodium Chloride 0.9% [Saline Flush] 2.5 ml FLUSH ASDIRECTED PRN 12/06/19 19:40 Saline Lock Insert [OM.PC] Stat 12/06/19 19:41 EKG Documentation Completion [RC] STAT UA W/BINDU RFLX IF INDICATED [URIN] Stat 12/06/19 19:51 Blood Culture x2 Reflex Set [OM.PC] Stat 12/06/19 20:17 CULTURE BLOOD [BC] Stat 12/06/19 20:24 CULTURE BLOOD [BC] Stat 12/06/19 21:36 Piperacillin/Tazobactam [Piperacil-Tazobact] 3.375 gm Sodium Chloride 0.9% [Normal Saline] 50 ml IV ONETIME 12/06/19 21:41 Patient Status [ADT] Routine - Assessment/Plan Last 24 Hours: My Active Orders 12/06/19 19:39 Cardiac Monitoring [RC] . DIRECTED Pulse Oximetry [RC] ASDIRECTED Sodium Chloride 0.9% [Saline Flush] 10 ml FLUSH ASDIRECTED PRN Sodium Chloride 0.9% [Saline Flush] 2.5 ml FLUSH ASDIRECTED PRN 12/06/19 19:40 Saline Lock Insert [OM.PC] Stat 12/06/19 19:41 EKG Documentation Completion [RC] STAT UA W/BINDU RFLX IF INDICATED [URIN] Stat 12/06/19 19:51 Blood Culture x2 Reflex Set [OM.PC] Stat 12/06/19 20:17 CULTURE BLOOD [BC] Stat 12/06/19 20:24 CULTURE BLOOD [BC] Stat 12/06/19 21:36 Piperacillin/Tazobactam [Piperacil-Tazobact] 3.375 gm Sodium Chloride 0.9% [Normal Saline] 50 ml IV ONETIME 12/06/19 21:41 Patient Status [ADT] Routine
[2019-12-06 20:25] LABS: BLOOD UREA NITROGEN,BUN 21 mg/dL (7.0-18.0); CARBON DIOXIDE,CO2 25.7 mmol/L (21.0-32.0); CHLORIDE,CL 102 mmol/L (98-107); GLUCOSE RANDOM 134 mg/dL (74-106); LIPASE 81 U/L (73-393); SODIUM,NA 142 mmol/L (136-145)
[2019-12-06] MEDS ORDERED: Iopamidol 755 MG/ML 500 ML Multipack Bottle IVPUSH STA (21:01)
--- NOTE | 2019-12-06 21:29 | CT ---
INDICATION: Lower abdominal pain TECHNIQUE: CT Abdomen and pelvis with i.v. contrast. Coronal and sagittal reformats were obtained. CONTRAST: 100 mL Isovue 370 COMPARISON: None FINDINGS: Lower chest: Unremarkable. Liver: Unremarkable. Spleen: Unremarkable. Pancreas: Unremarkable. Gallbladder: Previous cholecystectomy noted with mild intrahepatic and moderate extrahepatic biliary ductal dilatation seen. The common bile duct measures 10 mm. Kidney: Unremarkable. No kidney or ureteral stones or obstruction seen. Adrenal: Unremarkable. Bowel: Severe fluid distension of the stomach is noted. Mild wall thickening of the gastric antrum is present. Fluid filled dilated small bowel loops are present measuring up to 3.7 cm with transition point in the anterior midabdomen on coronal image 19. The appendix is not demonstrated. Vascular: Moderate diffuse atherosclerotic calcifications of the abdominal aorta and its tributaries are present. Lymph: Unremarkable. Peritoneum: Unremarkable. No pneumoperitoneum is seen. A small amount of abdominal ascites is present. Pelvis: Unremarkable. Soft tissue: Unremarkable. Bone: Unremarkable for age. IMPRESSIONS: 1. Fluid filled dilated small bowel loops are present measuring up to 3.7 cm with transition point in the anterior midabdomen on coronal image 19. Findings are likely due to high-grade small-bowel obstruction from an adhesion or internal hernia. 2. Mild wall thickening of the gastric antrum is present. This may be due to gastritis or peptic ulcer disease and confirmation with barium GI series or endoscopy is recommended. 3. A small amount of abdominal ascites is present. Dictated by Koby Mendosa MD @ 12/06/2019 9:28:34 PM Please note that all CT scans at this facility use dose modulation, iterative reconstruction, and/or weight-based dosing when appropriate to reduce radiation dose to as low as reasonably achievable. Dictated by: Koby Mendosa MD @ 12/06/2019 21:28:39 (Electronically Signed)
[2019-12-06] MEDS ORDERED: Piperacillin/Tazobactam 3.375 GM in Sodium Chloride 0.9% 50 ML IV ONE (21:36)
--- NOTE | 2019-12-07 01:04 | CR ---
INDICATION: Ngt placement TECHNIQUE: Abdominal radiograph 1 view COMPARISON: None FINDINGS: Bowel: The bowel gas pattern is normal without evidence of bowel obstruction. Most of the lower abdomen and pelvis is excluded. NG tube present with tip in the gastric body. Soft tissue: No evidence of pneumoperitoneum present. No suspicious calcifications noted. Excreted contrast is present in the renal pelves. Surgical clips are noted in the right upper quadrant from prior cholecystectomy. Bone: Unremarkable for age. IMPRESSION: 1. NG tube present with tip in the gastric body. Dictated by: Koby Mendosa MD @ 12/07/2019 01:04:04 (Electronically Signed)
[2019-12-07] MEDS ORDERED: Ondansetron 4 MG/2 ML SDV IVPUSH PRN (01:33)
[2019-12-07] MEDS ORDERED: fentaNYL 50 MCG/ML SDV IVPUSH PRN (01:35)
--- NOTE | 2019-12-07 01:38 | PCM.HP.2 ---
H&P History of Present Illness - General Date of Service: 12/07/19 Admit Problem/Dx: Admission Diagnosis/Problem Admission Diagnosis/Problem Small bowel obstruction - History of Present Illness Initial Comments - Free Text/Narative: 79 yo female with pmh of Alzheimer's dementia, hypothyroidism, and CAD, who presents with one day history of abdominal pain. In the ED she was found to have a small bowel obstruction on CT scan. lower abdominal Pain Score (Numeric/FACES): 10 - Related Data Allergies/Adverse Reactions: Allergies Allergy/AdvReac Type Severity Reaction Status Date / Time morphine Allergy Cannot Verified 08/15/18 05:16 Remember Home Medications: Home Meds Apixaban [Eliquis] 5 mg PO BIDMEALS 03/22/17 [History] Levothyroxine [Synthroid] 50 mcg PO ACBREAKFAST 03/22/17 [History] Memantine [Namenda] 10 mg PO BID 03/22/17 [History] Fluticasone Propionate [Flonase] 1 spray NASBOTH DAILY bottle 08/15/18 [Rx] Metoprolol Succinate [Toprol XL] 12.5 mg PO DAILY 08/15/18 [History] Multivit-Min/FA/Lycopen/Lutein [Centrum Silver Tablet] 1 tab PO DAILY 08/15/18 [History] [place]-3/DHA/Epa/Fish Oil [Fish Oil 1,000 mg Softgel] 1,000 mg PO DAILY@1200 08/15/18 [History] Pantoprazole Sodium [Protonix] 40 mg PO DAILY 08/15/18 [History] Rosuvastatin [Crestor] 10 mg PO DAILY 08/15/18 [History] cephALEXin [Keflex] 500 mg PO Q12H #10 cap 08/15/18 [Rx] Past Medical History HEENT History: Reports: Impaired Vision, Other (See Below) Other HEENT History: wears glasses for reading, not with pt Cardiovascular History: Reports: Heart Murmur, High Cholesterol, Hypertension, MS, Stents Other Cardiovascular History: rheumatic fever Respiratory History: Reports: None Gastrointestinal History: Reports: None Genitourinary History: Reports: None [employer]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: Neurological History: Reports: Alzheimers Disease, TIA Psychiatric History: Reports: Alzheimers Disease Endocrine/Metabolic History: Reports: Hypothyroidism Oncologic (Cancer) History: Reports: Cervix - Infectious Disease History Infectious Disease History: Reports: Chicken Pox, Measles, Mumps - Past Surgical History HEENT Surgical History: Reports: Tonsillectomy GI Surgical History: Reports: Appendectomy Female Surgical History: Reports: Hysterectomy, Oophorectomy Other Female Surgeries/Procedures: hx cervical cancer Social & Family History - Family History Family Medical History: Noncontributory - Tobacco Use Tobacco Use Status *Q: Never Tobacco User - Caffeine Use Caffeine Use: Reports: Coffee Caffeine Use Comment: every once in a while - Recreational Drug Use Recreational Drug Use: No - Living Situation & Occupation Living situation: Reports: with Family Occupation: Retired H&P Review of Systems - Review of Systems: Review Of Systems: Comprehensive ROS is negative, except as noted in HPI. Exam - Exam Exam: See Below - Vital Signs Vital Signs: Last Vital Signs Temp 35.9 C L 12/06/19 19:26 Pulse 60 12/06/19 19:26 Resp 18 12/06/19 19:26 BP 147/66 H 12/06/19 19:26 Pulse Ox 92 L 12/06/19 19:26 - Exam General: Alert, Cooperative HEENT: Mucosa Moist & Hol[place] Neck: Supple Lungs: Clear to Auscultation, Normal Respiratory Effort Cardiovascular: Regular Rate, Regular Rhythm GI/Abdominal Exam: Normal Bowel Sounds, Soft, Non-Tender, No Organomegaly, No Distention Extremities: Non-Tender, No Pedal Edema Skin: Warm, Dry, Intact - Patient Data Lab Results Last 24 hrs: Laboratory Results - last 24 hr 12/06/19 12/06/19 12/06/19 Range/Units 19:38 19:38 19:38 WBC 11.41 H (4.0-11.0) K/uL RBC 5.15 (4.30-5.90) M/uL Hgb 16.4 H (12.0-16.0) g/dL Hct 50.2 H (36.0-46.0) % MCV 97.5 (80.0-98.0) fL MCH 31.8 (27.0-32.0) pg MCHC 32.7 (31.0-37.0) g/dL RDW Std Deviation 48.5 (28.0-62.0) fl RDW Coeff of Shaan 14 (11.0-15.0) % Plt Count 203 (150-400) K/uL MPV 9.50 (7.40-12.00) fL Neut % (Auto) 71.5 (48.0-80.0) % Lymph % (Auto) 22.2 (16.0-40.0) % Mchenry % (Auto) 6.0 (0.0-15.0) % Eos % (Auto) 0.2 (0.0-7.0) % Baso % (Auto) 0.1 (0.0-1.5) % Neut # (Auto) 8.2 H (1.4-5.7) K/uL Lymph # (Auto) 2.5 H (0.6-2.4) K/uL Mchenry # (Auto) 0.7 (0.0-0.8) K/uL Eos # (Auto) 0.0 (0.0-0.7) K/uL Baso # (Auto) 0.0 (0.0-0.1) K/uL Nucleated RBC % 0.0 /100WBC Nucleated RBCs # 0 K/uL INR 1.15 Lactate (0.20-2.00) mmol/L Sodium 142 (136-145) mmol/L Potassium 4.0 (3.5-5.1) mmol/L Chloride 102 (98-107) mmol/L Carbon Dioxide 25.7 (21.0-32.0) mmol/L BUN 21 H (7.0-18.0) mg/dL Creatinine 1.1 H (0.6-1.0) mg/dL Est Cr Clr Drug Dosing TNP Estimated GFR (MDRD) 47.9 ml/min Glucose 134 H (74-106) mg/dL Calcium 10.3 H (8.5-10.1) mg/dL Phosphorus 4.7 (2.6-4.7) mg/dL Magnesium 2.1 (1.8-2.4) mg/dL Total Bilirubin 0.6 (0.2-1.0) mg/dL AST 28 (15-37) IU/L ALT 16 (14-63) IU/L Alkaline Phosphatase 64 (46-116) U/L Troponin I < 0.050 (0.000-0.056) ng/mL B-Natriuretic Peptide (<100) PG/ML Total Protein 8.3 H (6.4-8.2) g/dL Albumin 4.2 (3.4-5.0) g/dL Globulin 4.1 H (2.6-4.0) g/dL Albumin/Globulin Ratio 1.0 (0.9-1.6) Lipase 81 (73-393) U/L SARS-CoV-2 RNA (ABDULAZIZ) (NEGATIVE) 12/06/19 12/06/19 12/06/19 Range/Units 19:38 19:38 20:17 WBC (4.0-11.0) K/uL RBC (4.30-5.90) M/uL Hgb (12.0-16.0) g/dL Hct (36.0-46.0) % MCV (80.0-98.0) fL MCH (27.0-32.0) pg MCHC (31.0-37.0) g/dL RDW Std Deviation (28.0-62.0) fl RDW Coeff of Shaan (11.0-15.0) % Plt Count (150-400) K/uL MPV (7.40-12.00) fL Neut % (Auto) (48.0-80.0) % Lymph % (Auto) (16.0-40.0) % Mchenry % (Auto) (0.0-15.0) % Eos % (Auto) (0.0-7.0) % Baso % (Auto) (0.0-1.5) % Neut # (Auto) (1.4-5.7) K/uL Lymph # (Auto) (0.6-2.4) K/uL Mchenry # (Auto) (0.0-0.8) K/uL Eos # (Auto) (0.0-0.7) K/uL Baso # (Auto) (0.0-0.1) K/uL Nucleated RBC % /100WBC Nucleated RBCs # K/uL INR Lactate 1.0 (0.20-2.00) mmol/L Sodium (136-145) mmol/L Potassium (3.5-5.1) mmol/L Chloride (98-107) mmol/L Carbon Dioxide (21.0-32.0) mmol/L BUN (7.0-18.0) mg/dL Creatinine (0.6-1.0) mg/dL Est Cr Clr Drug Dosing Estimated GFR (MDRD) ml/min Glucose (74-106) mg/dL Calcium (8.5-10.1) mg/dL Phosphorus (2.6-4.7) mg/dL Magnesium (1.8-2.4) mg/dL Total Bilirubin (0.2-1.0) mg/dL AST (15-37) IU/L ALT (14-63) IU/L Alkaline Phosphatase (46-116) U/L Troponin I (0.000-0.056) ng/mL B-Natriuretic Peptide 49 (<100) PG/ML Total Protein (6.4-8.2) g/dL Albumin (3.4-5.0) g/dL Globulin (2.6-4.0) g/dL Albumin/Globulin Ratio (0.9-1.6) Lipase (73-393) U/L SARS-CoV-2 RNA (ABUDLAZIZ) NEGATIVE (NEGATIVE) Result Diagrams: 12/07/19 05:40 12/07/19 05:40 Cody Results Last 24 hrs: Microbiology 12/06/19 20:24 Anaerobic Blood Culture - Final Blood - Venous - Lab Draw 12/06/19 20:17 Anaerobic Blood Culture - Final Blood - Venous Sepsis Event Note - Evaluation Sepsis Screening Result: No Definite Risk - Focused Exam Vital Signs: Vital Signs Temp Pulse Resp BP Pulse Ox 12/06/19 19:26 35.9 C L 60 18 147/66 H 92 L Problem List Initiated/Reviewed/Updated: Yes Orders Last 24hrs: Active Orders 24 hr Category Date Time Status Patient Status [ADT] Routine ADT 12/06/19 21:41 Active Antiembolic Devices [RC] PER UNIT ROUTINE Care 12/07/19 01:34 Ordered Cardiac Monitoring [RC] . DIRECTED Care 12/06/19 19:39 Active EKG Documentation Completion [RC] STAT Care 12/06/19 19:41 Active Gastrointestinal Tube Mgmt [RC] ASDIRECTED Care 12/07/19 00:14 Active Oxygen Therapy [RC] PRN Care 12/07/19 01:33 Ordered Pulse Oximetry [RC] ASDIRECTED Care 12/06/19 19:39 Active Telemetry Monitoring [Cardiac Monitoring] [RC] . Care 12/06/19 22:02 Active DIRECTED VTE/DVT Education [RC] PER UNIT ROUTINE Care 12/07/19 01:33 Ordered Vital Signs [RC] Q4H Care 12/07/19 01:33 Ordered Nothing per Oral Now Diet [DIET] Diet 12/07/19 Breakfast Ordered Abdomen 2V AP Flat Upright [CR] Timed Exams 12/07/19 06:30 Ordered CBC WITH AUTO DIFF [HEME] AM Lab 12/07/19 05:11 Ordered CMP [COMPREHENSIVE METABOLIC PN,CMP] [CHEM] AM Lab 12/07/19 05:11 Ordered CULTURE BLOOD [BC] Stat Lab 12/06/19 20:17 Results CULTURE BLOOD [BC] Stat Lab 12/06/19 20:24 Results UA W/CODY RFLX IF INDICATED [URIN] Stat Lab 12/06/19 19:41 Ordered Ondansetron [Zofran] Med 12/07/19 01:33 Ordered 4 mg IVPUSH Q4H PRN Piperacillin/Tazobactam [Piperacil-Tazobact] 3.375 gm Med 12/07/19 00:30 Ordered Sodium Chloride 0.9% [Normal Saline] 50 ml IV Q8H Sodium Chloride 0.9% @ 125 MLS/HR (1000ml) Med 12/07/19 01:45 Ordered Sodium Chloride 0.9% [Normal Saline] 1,000 ml IV ASDIRECTED Sodium Chloride 0.9% [Saline Flush] Med 12/06/19 19:39 Active 10 ml FLUSH ASDIRECTED PRN Sodium Chloride 0.9% [Saline Flush] Med 12/06/19 19:39 Active 2.5 ml FLUSH ASDIRECTED PRN fentaNYL Med 12/07/19 01:35 Ordered 25 mcg IVPUSH Q3HR PRN Blood Culture x2 Reflex Set [OM.PC] Stat Oth 12/06/19 19:51 Ordered NG [Nasogastric Orogastric Tube Insertion] [OM.PC] Oth 12/07/19 00:14 Ordered Routine Saline Lock Insert [OM.PC] Stat Oth 12/06/19 19:40 Ordered Sequential Compression Device [OM.PC] Per Unit Routine Oth 12/07/19 01:33 Ordered Medication Orders Fentanyl (Fentanyl) 25 mcg IVPUSH Q3HR PRN PRN Reason: Abdominal Pain Piperacillin Sod/Tazobactam (Sod 3.375 gm/ Sodium Chloride) 50 mls @ 100 mls/hr IV Q8H MICHELLE Sodium Chloride (Normal Saline) 1,000 mls @ 125 mls/hr IV ASDIRECTED MICHELLE Ondansetron HCl (Zofran) 4 mg IVPUSH Q4H PRN PRN Reason: Nausea Sodium Chloride (Saline Flush) 10 ml FLUSH ASDIRECTED PRN PRN Reason: Keep Vein Open Sodium Chloride (Saline Flush) 2.5 ml FLUSH ASDIRECTED PRN PRN Reason: Keep Vein Open Assessment/Plan Comment:: 79 yo female admitted for small bowel obstruction. Dr. Huan Shah consulted. Will keep NG tube and give bowel rest with IV fluids.
[2019-12-07] MEDS ORDERED: Pantoprazole 40 MG in Sodium Chloride 0.9% 10 ML IV SCH (02:00)
[2019-12-07] MEDS: Sodium Chloride 0.9% 1,000 ML IV SCH ×3 (02:22→22:36)
--- NOTE | 2019-12-07 05:51 | CR ---
INDICATION: Small-bowel obstruction. Replacement of nasogastric tube. COMPARISON: From earlier today at 0048 hours FINDINGS: Erect and supine films of the abdomen were obtained. A nasogastric tube has its tip in satisfactory position in the fundus of the stomach. The proximal port is located below the GE junction. In the abdomen, there is no sign of distention of the small bowel or colon to suggest obstruction or ileus. There is no sign of free air or distinct mass. The osseous structures are normal in appearance for the patient`s age. The lung bases are clear. IMPRESSION: Satisfactory positioning of nasogastric tube with tip in the fundus of the stomach. No sign of bowel obstruction or ileus. Dictated by Jeyson Davila MD @ Dec 07 2019 5:48AM Signed by Dr. Jeyson Davila @ Dec 07 2019 5:50AM
[2019-12-07] MEDS ORDERED: Piperacillin/Tazobactam 3.375 GM in Sodium Chloride 0.9% 50 ML IV ONE (06:00)
[2019-12-07] MEDS: Pantoprazole 40 MG in Sodium Chloride 0.9% 10 ML IV SCH (06:07)
[2019-12-07 06:58] LABS: BLOOD UREA NITROGEN,BUN 20 mg/dL (7.0-18.0); CARBON DIOXIDE,CO2 28.9 mmol/L (21.0-32.0); CHLORIDE,CL 104 mmol/L (98-107); GLUCOSE RANDOM 139 mg/dL (74-106); POTASSIUM,K 3.7 mmol/L (3.5-5.1); SODIUM,NA 143 mmol/L (136-145)
[2019-12-07] MEDS: Piperacillin/Tazobactam 3.375 GM in Sodium Chloride 0.9% 50 ML IV SCH ×2 (08:27→17:03)
--- NOTE | 2019-12-07 09:42 | CONS ---
DATE OF CONSULTATION: 12/06/2019 DATE OF : 1940 PRIMARY CARE PHYSICIAN: Not In Area PCP REASON FOR CONSULT: Small bowel obstruction. HISTORY OF PRESENT ILLNESS: The patient is a pleasant 79-year-old female who started having some abdominal pain this afternoon. The patient states she also was feeling weak so her family took her to the ER. The patient does have Alzheimer's and because of this dementia, she says she has a hard time remembering recent things. The patient thinks the pain may have been going on actually for a couple of weeks. It just got worse since this afternoon. She says the pain was more of a dull ache in the lower abdomen. She original thought it was from overdoing it at home. The patient says she has some nausea, but no emesis. The patient says she is feeling a little better since being admitted to the hospital. Her main complaint right now actually is just feeling weak and tired. The patient says her last bowel movement was yesterday. The patient says she usually has a bowel movement every day. The patient has had multiple abdominal surgeries, which include: 1. Hysterectomy. 2. Bilateral oophorectomy. 3. Appendectomy. 4. C-sections x2. 5. Cardiac stents. 6. Cholecystectomy. The patient states that she does have abdominal pain, it is more in her periumbilical area. She states the pain kind of comes and goes. Currently, she is feeling okay. PAST MEDICAL HISTORY: 1. Significant for UT. 2. Cardiac stents. 3. Hypercholesterolemia. 4. Hypertension. 5. Hypothyroidism. CURRENT HOME MEDICATIONS: 1. Crestor 10 mg p.o. daily. 2. Protonix 40 mg p.o. daily. 3. Multivitamin. 4. Metoprolol 12.5 mg p.o. daily. 5. Namenda 10 mg p.o. b.i.d. 6. Synthroid 50 mcg p.o. daily. 7. Flonase daily. 8. Eliquis 5 mg p.o. b.i.d. ALLERGIES: Morphine. PAST SURGICAL HISTORY: 1. C-sections x2. 2. Cardiac stent placement. 3. Hysterectomy and oophorectomy for cervical cancer. The patient says she also had some radiation. 4. Appendectomy. 5. Cholecystectomy FAMILY HISTORY: The patient really denies any. SOCIAL HISTORY: The patient denies any tobacco use. She does have occasional alcoholic drink. REVIEW OF SYSTEMS: Complete 12+ review of systems was negative except what is in the HPI. PHYSICAL EXAMINATION: GENERAL: The patient is lying comfortably in her hospital bed. She is alert and oriented, although again she says with her dementia, she sometimes has a hard time remembering, but she does seem to answer questions appropriately. HEAD: Normocephalic, atraumatic. LUNGS: Clear to auscultation bilaterally. No rhonchi or wheezing heard. HEART: Regular rate and rhythm. Does have a systolic murmur. ABDOMEN: Soft with some mild distension. She does have some tenderness in the periumbilical area and slightly to the left lower abdomen. She has what looks to be a bruise on her left lower abdomen. She states that it is a birthmark. She has incisions from previous surgeries. EXTREMITIES: No edema. NEUROLOGIC: Grossly no motor or neurologic deficits noted. VITAL SIGNS: Temperature is 36.7, pulse is 60, blood pressure is 147/66. LABORATORY DATA: White cell count is 11.41, hemoglobin is 16.4, platelet count is 203. INR is 1.15. Lactic acid is 1. Sodium 142, potassium 4, chloride is 102, bicarb is 25, BUN 21, creatinine 1.1, glucose is 135. IMAGING: Did look at report and reviewed images. The patient does have a dilated stomach and dilated small bowel. There does look like there might be a transition point in the anterior abdomen by the umbilicus. The radiologist does mention so possible thickening in the stomach for possible gastritis or possible ulcer. ASSESSMENT AND PLAN: This is a pleasant 79-year-old female with small bowel obstruction. I did go over with the patient what small bowel obstruction was and went over that treatment is usually first an NG to decompress the bowel and see if the SBO resolves on its own. If it does not resolve, she would need surgery for a likely lysis of adhesions. The patient said she understood. All her questions were answered. Currently, she does not have an NG in place. I will re-evaluate her tomorrow morning for possible resolution of her small bowel obstruction. The case was discussed with the hospital team and the nurse. Surgery will continue to follow. JACOB POND /[id number] ANTOINETTE
--- NOTE | 2019-12-07 13:09 | PN ---
SUBJECTIVE: The patient is feeling much better this morning. She says her abdominal pain has almost gone. She has been up to urinate, but unfortunately has not been passing gas or had a bowel movement. She had about 800 out of her NG. OBJECTIVE: GENERAL: The patient is lying comfortably in hospital bed. She is alert. VITAL SIGNS: Temperature is 99.3, pulse is 82, satting 92% on room air, and blood pressure is 124/70. ABDOMEN: Soft, still is a little less distended yesterday and less tenderness, but still has some minimal tenderness around her periumbilical region. Some hypoactive bowel sounds more than yesterday. IMAGING: Abdominal x-ray from this morning showed good placement of the NG tube and no signs of distention of the small bowel or colon. ASSESSMENT AND PLAN: This is a pleasant 79-year-old female with small-bowel obstruction. NG has been placed, had 800 out. Abdominal pain is much less and she is feeling good. She is not passing flatus yet unfortunately. The patient would like to avoid any surgery if she can. We will give her another day of NG and abdominal rest. Tomorrow if she has not opened up, we will do another CT scan with oral contrast. This facility does not have small-bowel follow-through available. The patient was discussed with the hospital team. JACOB POND /[id number]
[2019-12-07] MEDS ORDERED: Benzocaine/Cetylpyridinium/Menthol Lozenge MUCMEM PRN (13:20)
--- NOTE | 2019-12-07 14:53 | PCM.PN ---
- General Info Date of Service: 12/07/19 - Review of Systems Systems Review Comment:: abdominal pain has improved - Patient Data Vitals - Most Recent: Last Vital Signs Temp 37.2 C 12/07/19 12:57 Pulse 80 12/07/19 12:57 Resp 14 12/07/19 12:57 BP 145/75 H 12/07/19 12:57 Pulse Ox 92 L 12/07/19 12:57 Weight - Most Recent: 61.6 kg I&O - Last 24 Hours: Intake & Output 12/06/19 12/07/19 12/07/19 22:59 06:59 14:59 Intake Total 0 Output Total 801 Balance -801 Lab Results Last 24 Hours: Laboratory Results - last 24 hr 12/06/19 12/06/19 12/06/19 Range/Units 19:38 19:38 19:38 WBC 11.41 H (4.0-11.0) K/uL RBC 5.15 (4.30-5.90) M/uL Hgb 16.4 H (12.0-16.0) g/dL Hct 50.2 H (36.0-46.0) % MCV 97.5 (80.0-98.0) fL MCH 31.8 (27.0-32.0) pg MCHC 32.7 (31.0-37.0) g/dL RDW Std Deviation 48.5 (28.0-62.0) fl RDW Coeff of Shaan 14 (11.0-15.0) % Plt Count 203 (150-400) K/uL MPV 9.50 (7.40-12.00) fL Neut % (Auto) 71.5 (48.0-80.0) % Lymph % (Auto) 22.2 (16.0-40.0) % [place] % (Auto) 6.0 (0.0-15.0) % Eos % (Auto) 0.2 (0.0-7.0) % Baso % (Auto) 0.1 (0.0-1.5) % Neut # (Auto) 8.2 H (1.4-5.7) K/uL Lymph # (Auto) 2.5 H (0.6-2.4) K/uL [place] # (Auto) 0.7 (0.0-0.8) K/uL Eos # (Auto) 0.0 (0.0-0.7) K/uL Baso # (Auto) 0.0 (0.0-0.1) K/uL Nucleated RBC % 0.0 /100WBC Nucleated RBCs # 0 K/uL INR 1.15 Lactate (0.20-2.00) mmol/L Sodium 142 (136-145) mmol/L Potassium 4.0 (3.5-5.1) mmol/L Chloride 102 (98-107) mmol/L Carbon Dioxide 25.7 (21.0-32.0) mmol/L BUN 21 H (7.0-18.0) mg/dL Creatinine 1.1 H (0.6-1.0) mg/dL Est Cr Clr Drug Dosing TNP Estimated GFR (MDRD) 47.9 ml/min Glucose 134 H (74-106) mg/dL Calcium 10.3 H (8.5-10.1) mg/dL Phosphorus 4.7 (2.6-4.7) mg/dL Magnesium 2.1 (1.8-2.4) mg/dL Total Bilirubin 0.6 (0.2-1.0) mg/dL AST 28 (15-37) IU/L ALT 16 (14-63) IU/L Alkaline Phosphatase 64 (46-116) U/L Troponin I < 0.050 (0.000-0.056) ng/mL B-Natriuretic Peptide (<100) PG/ML Total Protein 8.3 H (6.4-8.2) g/dL Albumin 4.2 (3.4-5.0) g/dL Globulin 4.1 H (2.6-4.0) g/dL Albumin/Globulin Ratio 1.0 (0.9-1.6) Lipase 81 (73-393) U/L TSH 3rd Generation (0.36-3.74) uIU/mL SARS-CoV-2 RNA (ABDULAZIZ) (NEGATIVE) 12/06/19 12/06/19 12/06/19 Range/Units 19:38 19:38 20:17 WBC (4.0-11.0) K/uL RBC (4.30-5.90) M/uL Hgb (12.0-16.0) g/dL Hct (36.0-46.0) % MCV (80.0-98.0) fL MCH (27.0-32.0) pg MCHC (31.0-37.0) g/dL RDW Std Deviation (28.0-62.0) fl RDW Coeff of Shaan (11.0-15.0) % Plt Count (150-400) K/uL MPV (7.40-12.00) fL Neut % (Auto) (48.0-80.0) % Lymph % (Auto) (16.0-40.0) % [place] % (Auto) (0.0-15.0) % Eos % (Auto) (0.0-7.0) % Baso % (Auto) (0.0-1.5) % Neut # (Auto) (1.4-5.7) K/uL Lymph # (Auto) (0.6-2.4) K/uL [place] # (Auto) (0.0-0.8) K/uL Eos # (Auto) (0.0-0.7) K/uL Baso # (Auto) (0.0-0.1) K/uL Nucleated RBC % /100WBC Nucleated RBCs # K/uL INR Lactate 1.0 (0.20-2.00) mmol/L Sodium (136-145) mmol/L Potassium (3.5-5.1) mmol/L Chloride (98-107) mmol/L Carbon Dioxide (21.0-32.0) mmol/L BUN (7.0-18.0) mg/dL Creatinine (0.6-1.0) mg/dL Est Cr Clr Drug Dosing Estimated GFR (MDRD) ml/min Glucose (74-106) mg/dL Calcium (8.5-10.1) mg/dL Phosphorus (2.6-4.7) mg/dL Magnesium (1.8-2.4) mg/dL Total Bilirubin (0.2-1.0) mg/dL AST (15-37) IU/L ALT (14-63) IU/L Alkaline Phosphatase (46-116) U/L Troponin I (0.000-0.056) ng/mL B-Natriuretic Peptide 49 (<100) PG/ML Total Protein (6.4-8.2) g/dL Albumin (3.4-5.0) g/dL Globulin (2.6-4.0) g/dL Albumin/Globulin Ratio (0.9-1.6) Lipase (73-393) U/L TSH 3rd Generation (0.36-3.74) uIU/mL SARS-CoV-2 RNA (ABDULAZIZ) NEGATIVE (NEGATIVE) 12/07/19 12/07/19 Range/Units 05:40 05:40 WBC 9.74 (4.0-11.0) K/uL RBC 4.71 (4.30-5.90) M/uL Hgb 14.8 (12.0-16.0) g/dL Hct 46.2 H (36.0-46.0) % MCV 98.1 H (80.0-98.0) fL MCH 31.4 (27.0-32.0) pg MCHC 32.0 (31.0-37.0) g/dL RDW Std Deviation 49.0 (28.0-62.0) fl RDW Coeff of Shaan 14 (11.0-15.0) % Plt Count 216 (150-400) K/uL MPV 9.60 (7.40-12.00) fL Neut % (Auto) 79.9 (48.0-80.0) % Lymph % (Auto) 12.6 L (16.0-40.0) % [place] % (Auto) 7.3 (0.0-15.0) % Eos % (Auto) 0.0 (0.0-7.0) % Baso % (Auto) 0.2 (0.0-1.5) % Neut # (Auto) 7.8 H (1.4-5.7) K/uL Lymph # (Auto) 1.2 (0.6-2.4) K/uL [place] # (Auto) 0.7 (0.0-0.8) K/uL Eos # (Auto) 0.0 (0.0-0.7) K/uL Baso # (Auto) 0.0 (0.0-0.1) K/uL Nucleated RBC % 0.0 /100WBC Nucleated RBCs # 0 K/uL INR Lactate (0.20-2.00) mmol/L Sodium 143 (136-145) mmol/L Potassium 3.7 (3.5-5.1) mmol/L Chloride 104 (98-107) mmol/L Carbon Dioxide 28.9 (21.0-32.0) mmol/L BUN 20 H (7.0-18.0) mg/dL Creatinine 1.1 H (0.6-1.0) mg/dL Est Cr Clr Drug Dosing TNP Estimated GFR (MDRD) 47.9 ml/min Glucose 139 H (74-106) mg/dL Calcium 9.0 (8.5-10.1) mg/dL Phosphorus (2.6-4.7) mg/dL Magnesium (1.8-2.4) mg/dL Total Bilirubin 0.5 (0.2-1.0) mg/dL AST 16 (15-37) IU/L ALT 14 (14-63) IU/L Alkaline Phosphatase 56 (46-116) U/L Troponin I (0.000-0.056) ng/mL B-Natriuretic Peptide (<100) PG/ML Total Protein 7.3 (6.4-8.2) g/dL Albumin 3.8 (3.4-5.0) g/dL Globulin 3.5 (2.6-4.0) g/dL Albumin/Globulin Ratio 1.1 (0.9-1.6) Lipase (73-393) U/L TSH 3rd Generation 1.63 (0.36-3.74) uIU/mL SARS-CoV-2 RNA (ABDULAZIZ) (NEGATIVE) Cody Results Last 24 Hours: Microbiology 12/06/19 20:24 Anaerobic Blood Culture - Final Blood - Venous - Lab Draw 12/06/19 20:17 Anaerobic Blood Culture - Final Blood - Venous Med Orders - Current: Current Medications Benzocaine/Menthol (Cepacol Sore Throat) 1 lozenge MUCMEM Q4HR PRN PRN Reason: Sore Throat Last Admin: 12/07/19 14:15 Dose: 1 lozenge Documented by: Fentanyl (Fentanyl) 25 mcg IVPUSH Q3HR PRN PRN Reason: Abdominal Pain Piperacillin Sod/Tazobactam (Sod 3.375 gm/ Sodium Chloride) 50 mls @ 100 mls/hr IV Q8H [facility]HEL[facility] Last Admin: 12/07/19 08:27 Dose: 100 mls/hr Documented by: Sodium Chloride (Normal Saline) 1,000 mls @ 125 mls/hr IV ASDIRECTED [facility] Last Admin: 12/07/19 12:14 Dose: 125 mls/hr Documented by: Pantoprazole Sodium 40 mg/ (Sodium Chloride) 10 mls @ 300 mls/hr IV Q24H [facility] Last Admin: 12/07/19 06:07 Dose: 300 mls/hr Documented by: Ondansetron HCl (Zofran) 4 mg IVPUSH Q4H PRN PRN Reason: Nausea Sodium Chloride (Saline Flush) 10 ml FLUSH ASDIRECTED PRN PRN Reason: Keep Vein Open Sodium Chloride (Saline Flush) 2.5 ml FLUSH ASDIRECTED PRN PRN Reason: Keep Vein Open Discontinued Medications Fentanyl (Fentanyl) 50 mcg IVPUSH ONETIME ONE Stop: 12/06/19 19:53 Last Admin: 12/06/19 20:02 Dose: 50 mcg Documented by: Lactated Ringer's (Ringers, Lactated) 1,000 mls @ 999 mls/hr IV .BOLUS ONE Stop: 12/06/19 20:50 Last Admin: 12/06/19 20:02 Dose: 999 mls/hr Documented by: Piperacillin Sod/Tazobactam (Sod 3.375 gm/ Sodium Chloride) 50 mls @ 100 mls/hr IV ONETIME ONE Stop: 12/06/19 22:05 Last Admin: 12/06/19 21:53 Dose: 100 mls/hr Documented by: Pantoprazole Sodium 40 mg/ (Sodium Chloride) 10 mls @ 300 mls/hr IV Q24H [facility] Last Admin: 12/07/19 08:36 Dose: Not Given Documented by: Iopamidol (Isovue Multipack-370 (76%)) 100 ml IVPUSH ONETIME STA Stop: 12/06/19 21:02 Last Admin: 12/06/19 21:02 Dose: 100 ml Documented by: Ondansetron HCl (Zofran) 4 mg IVPUSH ONETIME ONE Stop: 12/06/19 19:51 Last Admin: 12/06/19 20:02 Dose: 4 mg Documented by: - Exam General: Alert, Oriented Lungs: Clear to Auscultation, Normal Respiratory Effort Cardiovascular: Regular Rate, Regular Rhythm GI/Abdominal Exam: Normal Bowel Sounds, Soft, Non-Tender, No Distention Extremities: Normal Inspection, Non-Tender, No Pedal Edema Skin: Warm, Dry, Intact Neurological: No New Focal Deficit Sepsis Event Note - Evaluation Sepsis Screening Result: No Definite Risk - Focused Exam Vital Signs: Vital Signs Temp Pulse Resp BP Pulse Ox 12/07/19 12:57 37.2 C 80 14 145/75 H 92 L 12/07/19 08:21 37.4 C 82 16 124/70 92 L 12/07/19 05:33 36.4 C 76 18 111/65 97 - Problem List Review Problem List Initiated/Reviewed/Updated: Yes - My Orders Last 24 Hours: My Active Orders 12/06/19 22:02 Telemetry Monitoring [Cardiac Monitoring] [RC] Q8H 12/07/19 01:33 Oxygen Therapy [RC] PRN VTE/DVT Education [RC] PER UNIT ROUTINE Vital Signs [RC] Q4H Ondansetron [Zofran] 4 mg IVPUSH Q4H PRN Sequential Compression Device [OM.PC] Per Unit Routine 12/07/19 01:34 Antiembolic Devices [RC] PER UNIT ROUTINE 12/07/19 01:35 fentaNYL 25 mcg IVPUSH Q3HR PRN 12/07/19 01:45 Sodium Chloride 0.9% [Normal Saline] 1,000 ml IV ASDIRECTED 12/07/19 06:00 Pantoprazole [ProTONIX IV] 40 mg Sodium Chloride 0.9% [Normal Saline] 10 ml IV Q24H 12/07/19 Breakfast Nothing per Oral Now Diet [DIET] 12/07/19 14:36 Abdomen 1V Flat [CR] Routine 12/08/19 05:11 CBC WITH AUTO DIFF [HEME] AM COMPREHENSIVE METABOLIC PN,CMP [CHEM] AM - Plan Plan:: 79 yo female admitted for small bowel obstruction. SHe appears to b clinically improving today. Will keep NPO with NG tube.
--- NOTE | 2019-12-07 16:09 | CR ---
Indication: NG tube placement Technique: Abdomen 2 view Comparison: 12/07/2019 at 0522 hours Findings/Impression: Bowel: NG tube has been retracted with the distal tip now at the gastroesophageal junction. The tube should be advanced an additional 10 cm if able. Small-bowel obstruction pattern is now evident. Soft tissues: No sign of free air. No sign of soft tissue mass. No suspicious calcifications. Bones: Unremarkable for age. Dictated by Michael Frazier MD @ Dec 07 2019 4:06PM Signed by Dr. Michael Frazier @ Dec 07 2019 4:08PM
--- NOTE | 2019-12-07 22:21 | CR ---
Indication: NG tube placement Technique: Abdomen 1 view Comparison: December 07, 2019 at 1506 hours Findings/Impression: Bowel: NG tube is unchanged in position with the tip in the distal esophagus. Small bowel obstruction pattern with possible worsening of bowel dilatation. Soft tissues: No sign of free air. No sign of soft tissue mass. No suspicious calcifications. Bones: Unremarkable for age. Dictated by Michael Frazier MD @ Dec 07 2019 10:18PM Signed by Dr. Michael Frazier @ Dec 07 2019 10:19PM
--- NOTE | 2019-12-07 23:34 | CR ---
Indication: NG tube placement Technique: A single view of the abdomen Comparison: 12/07/2019 at 9:43 p.m. Findings/Impression: : The nasogastric tube has been advanced and lies with the tip in the proximal gastric body. Multiple dilated gas-filled small bowel segments again seen compatible with small-bowel obstruction. Colonic gas and stool seen. Cholecystectomy clips. Stable osseous structures. Dictated by Tyrel Gómez MD @ Dec 07 2019 11:30PM Signed by Dr. Tyrel Gómez @ Dec 07 2019 11:32PM
[2019-12-08] MEDS: Piperacillin/Tazobactam 3.375 GM in Sodium Chloride 0.9% 50 ML IV SCH ×3 (00:33→16:17)
[2019-12-08] MEDS: HYDROmorphone 1 MG/ML Syringe IVPUSH PRN ×2 (03:26→08:36)
[2019-12-08] MEDS: Pantoprazole 40 MG in Sodium Chloride 0.9% 10 ML IV SCH (06:13)
[2019-12-08 06:49] LABS: BLOOD UREA NITROGEN,BUN 17 mg/dL (7.0-18.0); CARBON DIOXIDE,CO2 25.5 mmol/L (21.0-32.0); CHLORIDE,CL 108 mmol/L (98-107); GLUCOSE RANDOM 103 mg/dL (74-106); POTASSIUM,K 3.3 mmol/L (3.5-5.1); SODIUM,NA 142 mmol/L (136-145)
[2019-12-08] MEDS: Sodium Chloride 0.9% 1,000 ML IV SCH ×2 (07:23→19:46)
--- NOTE | 2019-12-08 11:09 | PN ---
SUBJECTIVE: The patient says she is feeling good this morning. She also had small to moderate-sized bowel movement this morning. Her NG output has also been dropping. OBJECTIVE: GENERAL: The patient is lying comfortably in hospital bed. She is alert and in no acute distress. VITAL SIGNS: Temperature is 98.7, pulse is 78, blood pressure is 134/65, and satting 92% on room air. ABDOMEN: Soft and nondistended. There is a very minimal periumbilical tenderness to palpation. ASSESSMENT AND PLAN: This is a pleasant 79-year-old female who was admitted with a small-bowel obstruction. She has an NG in. The patient's abdominal pain is greatly improved. She had a small to large-sized bowel movement early this morning. I did go over that, we could continue conservative treatment for right now. We do not have the capabilities of small-bowel follow-through at this facility. I did go over with the patient that as she continues to have bowel movement today, we will probably take out the NG in the future tomorrow. If not, maybe we will do a CT with some oral contrast tomorrow. I told the the patient that she is improving, but she potentially may still need a surgery. The patient understands. Also called the son with the patient's permission, Swapnil Ruby and told him the plan. I answered all his questions. I also spoke with the nurse and the hospital team. JACOB POND /[id number] ANTOINETTE
--- NOTE | 2019-12-08 11:59 | PCM.PN ---
- General Info Date of Service: 12/08/19 - Review of Systems Systems Review Comment:: denies any pain, had bowel movement last night, no fevers, no shortness of breath - Patient Data Vitals - Most Recent: Last Vital Signs Temp 37.1 C 12/08/19 07:30 Pulse 78 12/08/19 07:30 Resp 16 12/08/19 07:30 BP 134/65 12/08/19 07:30 Pulse Ox 93 L 12/08/19 07:30 Weight - Most Recent: 61.6 kg I&O - Last 24 Hours: Intake & Output 12/07/19 12/08/19 12/08/19 22:59 06:59 14:59 Intake Total 0 675 Output Total 300 825 Balance -300 -150 Lab Results Last 24 Hours: Laboratory Results - last 24 hr 12/07/19 12/08/19 12/08/19 Range/Units 16:38 06:00 06:00 WBC 9.44 (4.0-11.0) K/uL RBC 3.94 L (4.30-5.90) M/uL Hgb 12.5 (12.0-16.0) g/dL Hct 39.5 (36.0-46.0) % MCV 100.3 H (80.0-98.0) fL MCH 31.7 (27.0-32.0) pg MCHC 31.6 (31.0-37.0) g/dL RDW Std Deviation 50.5 (28.0-62.0) fl RDW Coeff of Shaan 14 (11.0-15.0) % Plt Count 170 (150-400) K/uL MPV 9.10 (7.40-12.00) fL Neut % (Auto) 76.0 (48.0-80.0) % Lymph % (Auto) 15.9 L (16.0-40.0) % [place] % (Auto) 7.9 (0.0-15.0) % Eos % (Auto) 0.1 (0.0-7.0) % Baso % (Auto) 0.1 (0.0-1.5) % Neut # (Auto) 7.2 H (1.4-5.7) K/uL Lymph # (Auto) 1.5 (0.6-2.4) K/uL [place] # (Auto) 0.8 (0.0-0.8) K/uL Eos # (Auto) 0.0 (0.0-0.7) K/uL Baso # (Auto) 0.0 (0.0-0.1) K/uL Nucleated RBC % 0.0 /100WBC Nucleated RBCs # 0 K/uL Sodium 142 (136-145) mmol/L Potassium 3.3 L (3.5-5.1) mmol/L Chloride 108 H (98-107) mmol/L Carbon Dioxide 25.5 (21.0-32.0) mmol/L BUN 17 (7.0-18.0) mg/dL Creatinine 0.9 (0.6-1.0) mg/dL Est Cr Clr Drug Dosing 43.77 mL/min Estimated GFR (MDRD) > 60.0 ml/min Glucose 103 (74-106) mg/dL Calcium 8.1 L (8.5-10.1) mg/dL Total Bilirubin 0.6 (0.2-1.0) mg/dL AST 17 (15-37) IU/L ALT 14 (14-63) IU/L Alkaline Phosphatase 44 L (46-116) U/L Total Protein 6.1 L (6.4-8.2) g/dL Albumin 3.1 L (3.4-5.0) g/dL Globulin 3.0 (2.6-4.0) g/dL Albumin/Globulin Ratio 1.0 (0.9-1.6) Urine Color YELLOW Urine Appearance SLT CLOUDY Urine pH 5.5 (5.0-8.0) Ur Specific Boswell >= 1.030 (1.001-1.035) Urine Protein TRACE H (NEGATIVE) mg/dL Urine Glucose (UA) NEGATIVE (NEGATIVE) mg/dL Urine Ketones 15 H (NEGATIVE) mg/dL Urine Occult Blood SMALL H (NEGATIVE) Urine Nitrite POSITIVE H (NEGATIVE) Urine Bilirubin NEGATIVE (NEGATIVE) Urine Urobilinogen 0.2 (<2.0) EU/dL Ur Leukocyte Esterase MODERATE H (NEGATIVE) Urine RBC 0-4 (0-2/HPF) Urine WBC 50-60 (0-5/HPF) Ur Epithelial Cells RARE (NONE-FEW) Urine Bacteria 1+ H (NEGATIVE) Cody Results Last 24 Hours: Microbiology 10/23/20 20:24 Aerobic Blood Culture - Preliminary Blood - Venous - Lab Draw NO GROWTH AFTER 1 DAY Anaerobic Blood Culture - Final 12/06/19 20:17 Aerobic Blood Culture - Preliminary Blood - Venous NO GROWTH AFTER 1 DAY Anaerobic Blood Culture - Final Med Orders - Current: Current Medications Benzocaine/Menthol (Cepacol Sore Throat) 1 lozenge MUCMEM Q4HR PRN PRN Reason: Sore Throat Last Admin: 12/07/19 14:15 Dose: 1 lozenge Documented by: Fentanyl (Fentanyl) 25 mcg IVPUSH Q3HR PRN PRN Reason: Abdominal Pain Last Admin: 12/08/19 00:21 Dose: 25 mcg Documented by: Hydromorphone HCl (Dilaudid) 1 mg IVPUSH Q3H PRN PRN Reason: Pain Last Admin: 12/08/19 08:36 Dose: 1 mg Documented by: Piperacillin Sod/Tazobactam (Sod 3.375 gm/ Sodium Chloride) 50 mls @ 100 mls/hr IV Q8H [facility] Last Admin: 12/08/19 08:19 Dose: 100 mls/hr Documented by: Sodium Chloride (Normal Saline) 1,000 mls @ 125 mls/hr IV ASDIRECTED [facility] Last Admin: 12/08/19 07:23 Dose: 125 mls/hr Documented by: Pantoprazole Sodium 40 mg/ (Sodium Chloride) 10 mls @ 300 mls/hr IV Q24H [facility] Last Admin: 12/08/19 06:13 Dose: 300 mls/hr Documented by: Potassium Chloride/Sodium Chloride (Normal Saline With 40 Meq Kcl) 1,000 mls @ 150 mls/hr IV ASDIRECTED [facility] Stop: 12/08/19 18:39 Ondansetron HCl (Zofran) 4 mg IVPUSH Q4H PRN PRN Reason: Nausea Sodium Chloride (Saline Flush) 10 ml FLUSH ASDIRECTED PRN PRN Reason: Keep Vein Open Sodium Chloride (Saline Flush) 2.5 ml FLUSH ASDIRECTED PRN PRN Reason: Keep Vein Open Discontinued Medications Fentanyl (Fentanyl) 50 mcg IVPUSH ONETIME ONE Stop: 12/06/19 19:53 Last Admin: 12/06/19 20:02 Dose: 50 mcg Documented by: Lactated Ringer's (Ringers, Lactated) 1,000 mls @ 999 mls/hr IV .BOLUS ONE Stop: 12/06/19 20:50 Last Admin: 12/06/19 20:02 Dose: 999 mls/hr Documented by: Piperacillin Sod/Tazobactam (Sod 3.375 gm/ Sodium Chloride) 50 mls @ 100 mls/hr IV ONETIME ONE Stop: 12/06/19 22:05 Last Admin: 12/06/19 21:53 Dose: 100 mls/hr Documented by: Pantoprazole Sodium 40 mg/ (Sodium Chloride) 10 mls @ 300 mls/hr IV Q24H [facility] Last Admin: 12/07/19 08:36 Dose: Not Given Documented by: Iopamidol (Isovue Multipack-370 (76%)) 100 ml IVPUSH ONETIME STA Stop: 12/06/19 21:02 Last Admin: 12/06/19 21:02 Dose: 100 ml Documented by: Ondansetron HCl (Zofran) 4 mg IVPUSH ONETIME ONE Stop: 12/06/19 19:51 Last Admin: 12/06/19 20:02 Dose: 4 mg Documented by: - Exam General: Alert, Oriented Neck: Supple Lungs: Clear to Auscultation, Normal Respiratory Effort Cardiovascular: Regular Rate GI/Abdominal Exam: Normal Bowel Sounds, Soft, Non-Tender, No Distention Extremities: Normal Inspection, Non-Tender, No Pedal Edema Skin: Warm, Dry, Intact Neurological: No New Focal Deficit Sepsis Event Note - Evaluation Sepsis Screening Result: No Definite Risk - Focused Exam Vital Signs: Vital Signs Temp Pulse Resp BP Pulse Ox 12/08/19 07:30 37.1 C 78 16 134/65 93 L 12/08/19 04:30 36.6 C 93 18 129/61 92 L - Problem List Review Problem List Initiated/Reviewed/Updated: Yes - My Orders Last 24 Hours: My Active Orders 12/07/19 23:01 Patient Status [ADT] Stat 12/08/19 02:53 HYDROmorphone [Dilaudid] 1 mg IVPUSH Q3H PRN 12/08/19 12:00 Sodium Chloride 0.9% with KCl 40 mEq @ Enter Rate (1000 mL) Sodium Chloride 0.9% with KCl [Normal Saline with 40 mEq KCl] 1,000 ml IV ASDIRECTED - Plan Plan:: 79 yo female admitted for small bowel obstruction. Dr. Huan Shah consulted. Appears to be improving, will keep NG tube in today. IF she pulls it out again will leave it out for now. Will replace potassium.
[2019-12-08] MEDS ORDERED: Sodium Chloride 0.9% with KCl 1,000 ML IV SCH (12:00)
[2019-12-09] MEDS: Piperacillin/Tazobactam 3.375 GM in Sodium Chloride 0.9% 50 ML IV SCH ×4 (00:50→23:56)
[2019-12-09] MEDS: Sodium Chloride 0.9% 1,000 ML IV SCH ×3 (05:03→23:56)
[2019-12-09] MEDS: Pantoprazole 40 MG in Sodium Chloride 0.9% 10 ML IV SCH (06:16)
[2019-12-09 06:45] LABS: BLOOD UREA NITROGEN,BUN 15 mg/dL (7.0-18.0); CARBON DIOXIDE,CO2 22.1 mmol/L (21.0-32.0); CHLORIDE,CL 109 mmol/L (98-107); GLUCOSE RANDOM 76 mg/dL (74-106); POTASSIUM,K 3.5 mmol/L (3.5-5.1); SODIUM,NA 143 mmol/L (136-145)
--- NOTE | 2019-12-09 11:38 | PN ---
SUBJECTIVE: The patient says she is feeling well this morning. The patient says she still has some dull ache in her abdomen, but really no pain. She had removed her NG yesterday and Dr. Shah says okay to leave out. She has had minimal output and she had bowel movements. The patient said she had a large bowel movement in the evening. She had another small bowel movement this morning. She has had no nausea since the NG was removed. OBJECTIVE: GENERAL: The patient is lying comfortably in her bed. ABDOMEN: Soft and nondistended. Still some tenderness to palpation in periumbilical area. ASSESSMENT AND PLAN: This is a pleasant 79-year-old female with small bowel obstruction. NG has been removed, although she is having minimal output. She has had multiple bowel movements, one of which the patient said was larger. I will get another CT scan with p.o. contrast to make sure resolution of her small bowel obstruction. Discussed with the patient that if this shows resolution, she may start eating and if does not, she may still need potentially a surgery. Also discussed with her son and the hospital team the plan and the nursing team. Abdomen and pelvis CT scan with p.o. IV contrast was ordered. JCAOB POND /[id number] ANTOINETTE
--- NOTE | 2019-12-09 11:48 | PCM.PN ---
- General Info Date of Service: 12/09/19 Subjective Update: Reports abdominal pain has improved and reports having bowel movement this morning. - Patient Data Vitals - Most Recent: Last Vital Signs Temp 37.2 C 12/09/19 08:30 Pulse 85 12/09/19 08:30 Resp 17 12/09/19 08:30 BP 137/81 12/09/19 08:30 Pulse Ox 94 L 12/09/19 08:30 Weight - Most Recent: 61.6 kg I&O - Last 24 Hours: Intake & Output 12/08/19 12/09/19 12/09/19 22:59 06:59 14:59 Intake Total 60 Output Total 535 373 Balance -535 -313 Lab Results Last 24 Hours: Laboratory Results - last 24 hr 12/09/19 12/09/19 Range/Units 05:35 05:35 WBC 8.07 (4.0-11.0) K/uL RBC 3.92 L (4.30-5.90) M/uL Hgb 12.5 (12.0-16.0) g/dL Hct 39.4 (36.0-46.0) % MCV 100.5 H (80.0-98.0) fL MCH 31.9 (27.0-32.0) pg MCHC 31.7 (31.0-37.0) g/dL RDW Std Deviation 50.3 (28.0-62.0) fl RDW Coeff of Shaan 14 (11.0-15.0) % Plt Count 161 (150-400) K/uL MPV 9.10 (7.40-12.00) fL Neut % (Auto) 73.5 (48.0-80.0) % Lymph % (Auto) 17.2 (16.0-40.0) % Cloud % (Auto) 8.4 (0.0-15.0) % Eos % (Auto) 0.5 (0.0-7.0) % Baso % (Auto) 0.4 (0.0-1.5) % Neut # (Auto) 5.9 H (1.4-5.7) K/uL Lymph # (Auto) 1.4 (0.6-2.4) K/uL Cloud # (Auto) 0.7 (0.0-0.8) K/uL Eos # (Auto) 0.0 (0.0-0.7) K/uL Baso # (Auto) 0.0 (0.0-0.1) K/uL Nucleated RBC % 0.0 /100WBC Nucleated RBCs # 0 K/uL Sodium 143 (136-145) mmol/L Potassium 3.5 (3.5-5.1) mmol/L Chloride 109 H (98-107) mmol/L Carbon Dioxide 22.1 (21.0-32.0) mmol/L BUN 15 (7.0-18.0) mg/dL Creatinine 0.8 (0.6-1.0) mg/dL Est Cr Clr Drug Dosing 49.24 mL/min Estimated GFR (MDRD) > 60.0 ml/min Glucose 76 (74-106) mg/dL Calcium 8.2 L (8.5-10.1) mg/dL Total Bilirubin 0.6 (0.2-1.0) mg/dL AST 14 L (15-37) IU/L ALT 14 (14-63) IU/L Alkaline Phosphatase 44 L (46-116) U/L Total Protein 6.0 L (6.4-8.2) g/dL Albumin 3.0 L (3.4-5.0) g/dL Globulin 3.0 (2.6-4.0) g/dL Albumin/Globulin Ratio 1.0 (0.9-1.6) Cody Results Last 24 Hours: Microbiology 12/06/19 20:24 Aerobic Blood Culture - Preliminary Blood - Venous - Lab Draw NO GROWTH AFTER 2 DAYS Anaerobic Blood Culture - Final 12/06/19 20:17 Aerobic Blood Culture - Preliminary Blood - Venous NO GROWTH AFTER 2 DAYS Anaerobic Blood Culture - Final Med Orders - Current: Current Medications Benzocaine/Menthol (Cepacol Sore Throat) 1 lozenge MUCMEM Q4HR PRN PRN Reason: Sore Throat Last Admin: 12/07/19 14:15 Dose: 1 lozenge Documented by: Hydromorphone HCl (Dilaudid) 1 mg IVPUSH Q3H PRN PRN Reason: Pain Last Admin: 12/08/19 08:36 Dose: 1 mg Documented by: Piperacillin Sod/Tazobactam (Sod 3.375 gm/ Sodium Chloride) 50 mls @ 100 mls/hr IV Q8H MICHELLE Last Admin: 12/09/19 08:40 Dose: 100 mls/hr Documented by: Sodium Chloride (Normal Saline) 1,000 mls @ 125 mls/hr IV ASDIRECTED [facility] Last Admin: 12/09/19 05:03 Dose: 125 mls/hr Documented by: Pantoprazole Sodium 40 mg/ (Sodium Chloride) 10 mls @ 300 mls/hr IV Q24H [facility] Last Admin: 12/09/19 06:16 Dose: 300 mls/hr Documented by: Ondansetron HCl (Zofran) 4 mg IVPUSH Q4H PRN PRN Reason: Nausea Sodium Chloride (Saline Flush) 10 ml FLUSH ASDIRECTED PRN PRN Reason: Keep Vein Open Sodium Chloride (Saline Flush) 2.5 ml FLUSH ASDIRECTED PRN PRN Reason: Keep Vein Open Discontinued Medications Fentanyl (Fentanyl) 50 mcg IVPUSH ONETIME ONE Stop: 12/06/19 19:53 Last Admin: 12/06/19 20:02 Dose: 50 mcg Documented by: Fentanyl (Fentanyl) 25 mcg IVPUSH Q3HR PRN PRN Reason: Abdominal Pain Last Admin: 12/08/19 00:21 Dose: 25 mcg Documented by: Lactated Ringer's (Ringers, Lactated) 1,000 mls @ 999 mls/hr IV .BOLUS ONE Stop: 12/06/19 20:50 Last Admin: 12/06/19 20:02 Dose: 999 mls/hr Documented by: Piperacillin Sod/Tazobactam (Sod 3.375 gm/ Sodium Chloride) 50 mls @ 100 mls/hr IV ONETIME ONE Stop: 12/06/19 22:05 Last Admin: 12/06/19 21:53 Dose: 100 mls/hr Documented by: Pantoprazole Sodium 40 mg/ (Sodium Chloride) 10 mls @ 300 mls/hr IV Q24H [facility] Last Admin: 12/07/19 08:36 Dose: Not Given Documented by: Potassium Chloride/Sodium Chloride (Normal Saline With 40 Meq Kcl) 1,000 mls @ 150 mls/hr IV ASDIRECTED [facility] Stop: 12/08/19 18:39 Last Admin: 12/08/19 12:26 Dose: 150 mls/hr Documented by: Iopamidol (Isovue Multipack-370 (76%)) 100 ml IVPUSH ONETIME STA Stop: 12/06/19 21:02 Last Admin: 12/06/19 21:02 Dose: 100 ml Documented by: Ondansetron HCl (Zofran) 4 mg IVPUSH ONETIME ONE Stop: 12/06/19 19:51 Last Admin: 12/06/19 20:02 Dose: 4 mg Documented by: - Exam General: Alert, Cooperative, No Acute Distress Lungs: Clear to Auscultation, Normal Respiratory Effort Cardiovascular: Regular Rate, Regular Rhythm GI/Abdominal Exam: Normal Bowel Sounds, Soft, Non-Tender, No Distention Extremities: Normal Inspection, No Pedal Edema Sepsis Event Note - Evaluation Sepsis Screening Result: No Definite Risk - Focused Exam Vital Signs: Vital Signs Temp Pulse Resp BP Pulse Ox 12/09/19 08:30 37.2 C 85 17 137/81 94 L 12/09/19 00:42 36.5 C 87 16 151/80 H 93 L - Problem List & Annotations (1) SBO (small bowel obstruction) SNOMED Code(s): 047204423 Code(s): K56.609 - UNSP INTESTNL OBST, UNSP TO PARTIAL VERSUS COMPLETE OBST Status: Acute Current Visit: Yes (2) Hypothyroidism SNOMED Code(s): 61418181 Code(s): E03.9 - HYPOTHYROIDISM, UNSPECIFIED Status: Acute Current Visit: Yes (3) Alzheimer disease SNOMED Code(s): 04415415 Code(s): G30.9 - ALZHEIMER'S DISEASE, UNSPECIFIED; F02.80 - DEMENTIA IN OTH DISEASES CLASSD ELSWHR W/O BEHAVRL DISTURB Status: Acute Current Visit: Yes (4) CAD (coronary artery disease) SNOMED Code(s): 49506921 Code(s): I25.10 - ATHSCL HEART DISEASE OF [place] CORONARY ARTERY W/O ANG PCTRS Status: Acute Current Visit: Yes - Problem List Review Problem List Initiated/Reviewed/Updated: Yes - Plan Plan:: Assessment and Plan: 1. Small bowel obstruction: - General surgery consulted. Patient pulled out NG tube yesterday evening. Per general surgery, CT abd with oral contrast ordered today. If resolution of SBO is noted, then will start clear liquid diet. Patient on IV zosyn. 2. UTI: - Patient on IV zosyn. 3. Past medical history of Alzheimer's dementia, hypothyroidism and CAD s/p stents: - Will continue home medications.
[2019-12-09] MEDS ORDERED: Iopamidol 755 MG/ML 500 ML Multipack Bottle IVPUSH STA (12:01)
--- NOTE | 2019-12-09 12:33 | CT ---
INDICATION: Small-bowel obstruction. TECHNIQUE: CT abdomen and pelvis without and with 100 cc Isovue 370 IV contrast. Oral contrast was administered. Coronal and sagittal reconstructions. COMPARISON: CT of the abdomen and pelvis 12/06/2019. FINDINGS: Again seen are multiple loops of dilated proximal and mid small bowel which transition point in the anterior mid abdomen similar to prior exam (series 301, image 84 and series 303, image 10). Slightly decreased degree of small bowel dilation. Distal small bowel loops are normal in caliber. Findings are compatible with a small bowel obstruction. The colon is normal in caliber. Increased amount of free fluid throughout the abdomen and pelvis which is likely reactive. No intraperitoneal free air. No pneumatosis is identified. The liver, spleen, pancreas, and adrenal glands are negative. Hepatic and portal veins are patent. Cholecystectomy. Symmetric enhancement the kidneys. Small low-attenuation lesion in the left kidney most likely represents a cyst. No hydronephrosis. The bladder is normal in appearance. Hysterectomy. Aortoiliac vascular calcifications. No lymphadenopathy. Degenerative changes of the spine. New small bilateral pleural effusions, greater on the right. Bibasilar atelectasis. Coronary artery calcifications. IMPRESSION: 1. Persistent small bowel obstruction with transition point in the anterior mid abdomen. The degree of small bowel dilation is slightly less than on prior exam. 2. Increased amount of free fluid throughout the abdomen pelvis which is likely reactive. No evidence of perforation. 3. New small bilateral pleural effusions. Please note that all CT scans at this facility use dose modulation, iterative reconstruction, and/or weight-based dosing when appropriate to reduce radiation dose to as low as reasonably achievable. Dictated by Lucila Salgado MD @ Dec 09 2019 12:16PM Signed by Dr. Lucila Salgado @ Dec 09 2019 12:32PM
--- NOTE | 2019-12-09 15:47 | CR ---
Indication: Small-bowel obstruction Technique: Frontal view abdomen Comparison: CT abdomen pelvis from earlier today Findings/impression: Multiple air-filled loops of small bowel measure up to 4.6 cm consistent with the known diagnosis of small bowel obstruction. No free air. There is some oral contrast material within the ascending and descending portions of the colon. Surgical clips in the right upper quadrant. Residual intravenous contrast in the renal collecting systems. Dictated by Tameka Suarez MD @ Dec 09 2019 3:44PM Signed by Dr. Tameka Suarez @ Dec 09 2019 3:46PM
[2019-12-09] MEDS: HYDROmorphone 1 MG/ML Syringe IVPUSH PRN ×2 (16:12→21:35)
--- NOTE | 2019-12-09 19:36 | PN ---
SUBJECTIVE: The patient says she is feeling good, has no complaints. She says she is having some lower abdominal cramping, discomfort, but really denies any pain. The patient did have her CT scan done with oral contrast. CT scan showed that she had still some dilated small bowel, but may be slightly less than her previous CT scan with a likely transition point and decompressed bowels distally. I did go over the CT scan with the radiologist. It looks like the contrast becomes a little more diluted as it gets closer to the obstruction point. She said it could be follow-up with a KUB. The obstruction looked potentially bit less than before. The patient said she is feeling well. After the CT scan, the patient actually had a very large bowel movement, which the patient says one of the larger one she has had in her life, the nurse concurs. She filled up about half of the commode with a very large liquidy brown bowel movement. The patient says she is feeling much better. She had a followup KUB, which again showed some small bowel with air fluid loops, but the contrast going into ascending and descending portion of the colon. OBJECTIVE: GENERAL: The patient is sitting comfortably in her bed. She is alert. She feels very hungry. She says she just has some lower abdominal cramping. GASTROINTESTINAL: On abdominal exam, her abdomen soft, nondistended, just some very minimal tenderness to palpation. ASSESSMENT/PLAN: This is a pleasant 79-year-old female with small bowel obstruction. She did have a CT scan. It showed continuation of the obstruction. However, about an hour later, she had another massive bowel movement. It showed movement of the contrast into the colon, so potentially the partial small bowel obstruction is resolving. The patient feels hungry and is starting to pass gas. The contrast, Gastrografin, may have opened up and might be having further resolution. Because of this, I did talk with the son about postponing any surgery because she seems to be improving. We will do another KUB in the morning. If this shows further resolution, we will place her on a diet, and if she tolerates diet, potentially home. I did go over with the patient and son that bowel obstruction could always reoccur. If she does not have resolution and gets nausea and cannot tolerate food, she will then need to have a surgery. All the patient's and son's, who was Swapnil, questions were answered. JACOB POND /[id number] MTDRebecca
--- NOTE | 2019-12-10 05:35 | CR ---
INDICATION: Small bowel obstruction TECHNIQUE: Abdomen/Pelvis radiograph 2 views COMPARISON: 12/07/2019 FINDINGS: Bowel: Air-filled dilated small bowel loops in the left flank are again noted measuring up to 4 cm. Severe sigmoid diverticulosis is present. Oral contrast is noted in the ascending and transverse colon. NG tube is been removed. Soft tissue: No evidence of pneumoperitoneum present. No suspicious calcifications noted. Bone: Unremarkable for age. IMPRESSION: 1. Air-filled dilated small bowel loops in the left flank are again noted measuring up to 4 cm. Findings remain suspicious for small bowel obstruction. Dictated by Koby Mendosa MD @ 12/10/2019 5:33:38 AM Dictated by: Koby Mendosa MD @ 12/10/2019 05:33:48 (Electronically Signed)
[2019-12-10] MEDS: Pantoprazole 40 MG in Sodium Chloride 0.9% 10 ML IV SCH (06:37)
[2019-12-10 06:58] LABS: BLOOD UREA NITROGEN,BUN 13 mg/dL (7.0-18.0); CARBON DIOXIDE,CO2 22.2 mmol/L (21.0-32.0); CHLORIDE,CL 107 mmol/L (98-107); GLUCOSE RANDOM 64 mg/dL (74-106); POTASSIUM,K 3.5 mmol/L (3.5-5.1); SODIUM,NA 143 mmol/L (136-145)
[2019-12-10] MEDS ORDERED: 50% Dextrose in Water 50 ML Syringe IVPUSH ONE (07:24)
[2019-12-10] MEDS: Piperacillin/Tazobactam 3.375 GM in Sodium Chloride 0.9% 50 ML IV SCH ×2 (08:57→16:44)
[2019-12-10] MEDS: Sodium Chloride 0.9% 1,000 ML IV SCH (09:01)
[2019-12-10] MEDS ORDERED: Sennosides 8.6 MG Tab PO PRN (10:23)
[2019-12-10] MEDS ORDERED: Dextrose 5%-0.45% NaCl 1,000 ML IV SCH (10:30)
[2019-12-10] MEDS: Metoprolol Succinate 25 MG Tab.ER PO SCH (11:10)
--- NOTE | 2019-12-10 13:36 | PN ---
SUBJECTIVE: The patient was seen this morning. The patient was in good spirits. The patient denies any nausea. Talked with the patient and the nurse. She had 3 more larger bowel movements, still more liquidy. The patient denies any abdominal pain, but says she still has a little bit of achiness in the lower abdomen. OBJECTIVE: GENERAL: The patient is lying comfortably in her bed. She is alert. ABDOMEN: Soft and nondistended, again there is some minimal lower abdominal tenderness to palpation. IMAGING: Did redo her KUB from yesterday. Does looks like most of the contrast was made into the colon. Small bowel does look little less dilated and looking at the radiologist's notes, it went from 4.6 to 4 cm in size. ASSESSMENT AND PLAN: This is a pleasant 79-year-old female with small bowel obstruction. This appears to be resolving. The patient has no nausea. Minimal abdominal tenderness. Oral contrast has gone all the way through to the colon and she has had multiple large bowel movements. We will do clear liquid diet. If the patient tolerated without nausea she might be able to go home. I did go over with the patient and family that if she does develop nausea, we may consider doing a surgery. Did discuss patient with the hospital team. JACOB POND /[id number] MTDD
[2019-12-10] MEDS: HYDROmorphone 1 MG/ML Syringe IVPUSH PRN ×2 (14:07→20:04)
--- NOTE | 2019-12-10 16:36 | PCM.PN ---
<Arcenio Martinez - Last Filed: 12/10/19 16:33> - General Info Date of Service: 12/10/19 Subjective Update: Reports abdominal pain this morning and had bowel movement last night. - Patient Data Vitals - Most Recent: Last Vital Signs Temp 36.7 C 12/10/19 16:16 Pulse 80 12/10/19 16:16 Resp 16 12/10/19 16:16 BP 165/82 H 12/10/19 16:16 Pulse Ox 94 L 12/10/19 16:16 Weight - Most Recent: 61.6 kg I&O - Last 24 Hours: Intake & Output 12/10/19 12/10/19 12/10/19 06:59 14:59 22:59 Intake Total 2631 Output Total 900 Balance 1731 Lab Results Last 24 Hours: Laboratory Results - last 24 hr 12/10/19 12/10/19 12/10/19 Range/Units 05:52 05:52 08:06 WBC 6.79 (4.0-11.0) K/uL RBC 3.92 L (4.30-5.90) M/uL Hgb 12.2 (12.0-16.0) g/dL Hct 38.7 (36.0-46.0) % MCV 98.7 H (80.0-98.0) fL MCH 31.1 (27.0-32.0) pg MCHC 31.5 (31.0-37.0) g/dL RDW Std Deviation 48.2 (28.0-62.0) fl RDW Coeff of Shaan 13 (11.0-15.0) % Plt Count 180 (150-400) K/uL MPV 9.10 (7.40-12.00) fL Neut % (Auto) 70.2 (48.0-80.0) % Lymph % (Auto) 20.5 (16.0-40.0) % Barren % (Auto) 8.4 (0.0-15.0) % Eos % (Auto) 0.6 (0.0-7.0) % Baso % (Auto) 0.3 (0.0-1.5) % Neut # (Auto) 4.8 (1.4-5.7) K/uL Lymph # (Auto) 1.4 (0.6-2.4) K/uL Barren # (Auto) 0.6 (0.0-0.8) K/uL Eos # (Auto) 0.0 (0.0-0.7) K/uL Baso # (Auto) 0.0 (0.0-0.1) K/uL Nucleated RBC % 0.0 /100WBC Nucleated RBCs # 0 K/uL Sodium 143 (136-145) mmol/L Potassium 3.5 (3.5-5.1) mmol/L Chloride 107 (98-107) mmol/L Carbon Dioxide 22.2 (21.0-32.0) mmol/L BUN 13 (7.0-18.0) mg/dL Creatinine 0.8 (0.6-1.0) mg/dL Est Cr Clr Drug Dosing 49.24 mL/min Estimated GFR (MDRD) > 60.0 ml/min Glucose 64 L (74-106) mg/dL POC Glucose 152 H (60-110) mg/dL Calcium 8.0 L (8.5-10.1) mg/dL Total Bilirubin 0.5 (0.2-1.0) mg/dL AST 17 (15-37) IU/L ALT 12 L (14-63) IU/L Alkaline Phosphatase 40 L (46-116) U/L Total Protein 6.0 L (6.4-8.2) g/dL Albumin 2.8 L (3.4-5.0) g/dL Globulin 3.2 (2.6-4.0) g/dL Albumin/Globulin Ratio 0.9 (0.9-1.6) 12/10/19 Range/Units 11:36 WBC (4.0-11.0) K/uL RBC (4.30-5.90) M/uL Hgb (12.0-16.0) g/dL Hct (36.0-46.0) % MCV (80.0-98.0) fL MCH (27.0-32.0) pg MCHC (31.0-37.0) g/dL RDW Std Deviation (28.0-62.0) fl RDW Coeff of Shaan (11.0-15.0) % Plt Count (150-400) K/uL MPV (7.40-12.00) fL Neut % (Auto) (48.0-80.0) % Lymph % (Auto) (16.0-40.0) % Barren % (Auto) (0.0-15.0) % Eos % (Auto) (0.0-7.0) % Baso % (Auto) (0.0-1.5) % Neut # (Auto) (1.4-5.7) K/uL Lymph # (Auto) (0.6-2.4) K/uL Barren # (Auto) (0.0-0.8) K/uL Eos # (Auto) (0.0-0.7) K/uL Baso # (Auto) (0.0-0.1) K/uL Nucleated RBC % /100WBC Nucleated RBCs # K/uL Sodium (136-145) mmol/L Potassium (3.5-5.1) mmol/L Chloride (98-107) mmol/L Carbon Dioxide (21.0-32.0) mmol/L BUN (7.0-18.0) mg/dL Creatinine (0.6-1.0) mg/dL Est Cr Clr Drug Dosing mL/min Estimated GFR (MDRD) ml/min Glucose (74-106) mg/dL POC Glucose 91 (60-110) mg/dL Calcium (8.5-10.1) mg/dL Total Bilirubin (0.2-1.0) mg/dL AST (15-37) IU/L ALT (14-63) IU/L Alkaline Phosphatase (46-116) U/L Total Protein (6.4-8.2) g/dL Albumin (3.4-5.0) g/dL Globulin (2.6-4.0) g/dL Albumin/Globulin Ratio (0.9-1.6) Cody Results Last 24 Hours: Microbiology 12/06/19 20:24 Aerobic Blood Culture - Preliminary Blood - Venous - Lab Draw NO GROWTH AFTER 3 DAYS Anaerobic Blood Culture - Final 12/06/19 20:17 Aerobic Blood Culture - Preliminary Blood - Venous NO GROWTH AFTER 3 DAYS Anaerobic Blood Culture - Final Med Orders - Current: Current Medications Benzocaine/Menthol (Cepacol Sore Throat) 1 lozenge MUCMEM Q4HR PRN PRN Reason: Sore Throat Last Admin: 12/07/19 14:15 Dose: 1 lozenge Documented by: Hydromorphone HCl (Dilaudid) 1 mg IVPUSH Q3H PRN PRN Reason: Pain Last Admin: 12/10/19 14:07 Dose: 1 mg Documented by: Piperacillin Sod/Tazobactam (Sod 3.375 gm/ Sodium Chloride) 50 mls @ 100 mls/hr IV Q8H [facility] Last Admin: 12/10/19 08:57 Dose: 100 mls/hr Documented by: Pantoprazole Sodium 40 mg/ (Sodium Chloride) 10 mls @ 300 mls/hr IV Q24H [facility] Last Admin: 12/10/19 06:37 Dose: 300 mls/hr Documented by: Dextrose/Sodium Chloride (Dextrose 5%-1/2 Ns) 1,000 mls @ 100 mls/hr IV ASDIRECTED [facility] Last Admin: 12/10/19 11:11 Dose: 100 mls/hr Documented by: Metoprolol Succinate (Toprol Xl) 25 mg PO DAILY [facility] Last Admin: 12/10/19 11:10 Dose: 25 mg Documented by: Ondansetron HCl (Zofran) 4 mg IVPUSH Q4H PRN PRN Reason: Nausea Senna (Senna) 25.8 mg PO DAILY PRN PRN Reason: Constipation Sodium Chloride (Saline Flush) 10 ml FLUSH ASDIRECTED PRN PRN Reason: Keep Vein Open Sodium Chloride (Saline Flush) 2.5 ml FLUSH ASDIRECTED PRN PRN Reason: Keep Vein Open Discontinued Medications Dextrose/Water (Dextrose 50% In Water) 50 ml IVPUSH ONETIME ONE Stop: 12/10/19 07:25 Last Admin: 12/10/19 07:34 Dose: 50 ml Documented by: Fentanyl (Fentanyl) 50 mcg IVPUSH ONETIME ONE Stop: 12/06/19 19:53 Last Admin: 12/06/19 20:02 Dose: 50 mcg Documented by: Fentanyl (Fentanyl) 25 mcg IVPUSH Q3HR PRN PRN Reason: Abdominal Pain Last Admin: 12/08/19 00:21 Dose: 25 mcg Documented by: Lactated Ringer's (Ringers, Lactated) 1,000 mls @ 999 mls/hr IV .BOLUS ONE Stop: 12/06/19 20:50 Last Admin: 12/06/19 20:02 Dose: 999 mls/hr Documented by: Piperacillin Sod/Tazobactam (Sod 3.375 gm/ Sodium Chloride) 50 mls @ 100 mls/hr IV ONETIME ONE Stop: 12/06/19 22:05 Last Admin: 12/06/19 21:53 Dose: 100 mls/hr Documented by: Sodium Chloride (Normal Saline) 1,000 mls @ 125 mls/hr IV ASDIRECTED [facility] Last Admin: 12/10/19 09:01 Dose: 125 mls/hr Documented by: Pantoprazole Sodium 40 mg/ (Sodium Chloride) 10 mls @ 300 mls/hr IV Q24H [facility] Last Admin: 12/07/19 08:36 Dose: Not Given Documented by: Potassium Chloride/Sodium Chloride (Normal Saline With 40 Meq Kcl) 1,000 mls @ 150 mls/hr IV ASDIRECTED [facility] Stop: 12/08/19 18:39 Last Admin: 12/08/19 12:26 Dose: 150 mls/hr Documented by: Iopamidol (Isovue Multipack-370 (76%)) 100 ml IVPUSH ONETIME STA Stop: 12/06/19 21:02 Last Admin: 12/06/19 21:02 Dose: 100 ml Documented by: Iopamidol (Isovue Multipack-370 (76%)) 100 ml IVPUSH ONETIME STA Stop: 12/09/19 12:02 Last Admin: 12/09/19 12:05 Dose: 100 ml Documented by: Ondansetron HCl (Zofran) 4 mg IVPUSH ONETIME ONE Stop: 12/06/19 19:51 Last Admin: 12/06/19 20:02 Dose: 4 mg Documented by: - Exam General: Alert, Cooperative, No Acute Distress Lungs: Clear to Auscultation, Normal Respiratory Effort Cardiovascular: Regular Rate, Regular Rhythm GI/Abdominal Exam: Normal Bowel Sounds, Soft, Non-Tender, No Distention Extremities: Normal Inspection, No Pedal Edema Sepsis Event Note - Evaluation Sepsis Screening Result: No Definite Risk - Focused Exam Vital Signs: Vital Signs Temp Pulse Pulse Resp BP BP Pulse Ox 12/10/19 16:16 36.7 C 80 16 165/82 H 94 L 12/10/19 11:37 36.9 C 66 16 163/77 H 94 L 12/10/19 11:10 69 165/74 H 12/10/19 07:37 36.4 C 81 16 158/80 H 94 L 12/10/19 07:05 36.7 C 78 16 162/75 H 92 L - Problem List & Annotations (1) SBO (small bowel obstruction) SNOMED Code(s): 625689419 Code(s): K56.609 - UNSP INTESTNL OBST, UNSP TO PARTIAL VERSUS COMPLETE OBST Status: Acute (2) Hypothyroidism SNOMED Code(s): 60854455 Code(s): E03.9 - HYPOTHYROIDISM, UNSPECIFIED Status: Acute (3) Alzheimer disease SNOMED Code(s): 36272520 Code(s): G30.9 - ALZHEIMER'S DISEASE, UNSPECIFIED; F02.80 - DEMENTIA IN OTH DISEASES CLASSD ELSWHR W/O BEHAVRL DISTURB Status: Acute (4) CAD (coronary artery disease) SNOMED Code(s): 66149911 Code(s): I25.10 - ATHSCL HEART DISEASE OF [place] CORONARY ARTERY W/O ANG PCTRS Status: Acute - Problem List Review Problem List Initiated/Reviewed/Updated: Yes - My Orders Last 24 Hours: My Active Orders 12/10/19 10:23 Sennosides [Senna] 25.8 mg PO DAILY PRN 12/10/19 10:30 Dextrose 5%-0.45% NaCl [Dextrose 5%-1/2 NS] 1,000 ml IV ASDIRECTED Metoprolol Succinate [Toprol XL] 25 mg PO DAILY 12/10/19 12:13 Accu Check [Blood Glucose Check, Bedside] [RC] Q6H - Plan Plan:: Assessment and Plan: 1. Small bowel obstruction: - General surgery consulted and recommended CLD diet today and see how she tolerates this. Patient is having bowel movements and minimal nausea. Patient on IV zosyn. - CT abdomen/pelvis with oral contrast showed possible persistent partial obstruction. KUB showed that oral contrast going through the colon. 2. UTI: - Patient on IV zosyn. 3. Past medical history of Alzheimer's dementia, hypothyroidism and CAD s/p stents: - Will continue home medications. <Dante Soler - Last Filed: 12/12/19 13:01> - Patient Data Vitals - Most Recent: Last Vital Signs Temp 37.1 C 12/11/19 16:18 Pulse 80 12/11/19 16:18 Resp 16 12/11/19 16:18 BP 129/75 12/11/19 16:18 Pulse Ox 95 12/11/19 16:18 I&O - Last 24 Hours: Intake & Output 12/11/19 12/12/19 12/12/19 22:59 06:59 14:59 Intake Total 1950 Output Total 2200 Balance -250 Lab Results Last 24 Hours: Laboratory Results - last 24 hr 12/11/19 Range/Units 16:41 POC Glucose 114 H (60-110) mg/dL Cody Results Last 24 Hours: Microbiology 12/06/19 20:24 Aerobic Blood Culture - Final Blood - Venous - Lab Draw NO GROWTH AFTER 5 DAYS Anaerobic Blood Culture - Final 12/06/19 20:17 Aerobic Blood Culture - Final Blood - Venous NO GROWTH AFTER 5 DAYS Anaerobic Blood Culture - Final Med Orders - Current: Current Medications Discontinued Medications Benzocaine/Menthol (Cepacol Sore Throat) 1 lozenge MUCMEM Q4HR PRN PRN Reason: Sore Throat Last Admin: 12/07/19 14:15 Dose: 1 lozenge Documented by: Dextrose/Water (Dextrose 50% In Water) 50 ml IVPUSH ONETIME ONE Stop: 12/10/19 07:25 Last Admin: 12/10/19 07:34 Dose: 50 ml Documented by: Fentanyl (Fentanyl) 50 mcg IVPUSH ONETIME ONE Stop: 12/06/19 19:53 Last Admin: 12/06/19 20:02 Dose: 50 mcg Documented by: Fentanyl (Fentanyl) 25 mcg IVPUSH Q3HR PRN PRN Reason: Abdominal Pain Last Admin: 12/08/19 00:21 Dose: 25 mcg Documented by: Hydromorphone HCl (Dilaudid) 1 mg IVPUSH Q3H PRN PRN Reason: Pain Last Admin: 12/11/19 06:13 Dose: 1 mg Documented by: Lactated Ringer's (Ringers, Lactated) 1,000 mls @ 999 mls/hr IV .BOLUS ONE Stop: 12/06/19 20:50 Last Admin: 12/06/19 20:02 Dose: 999 mls/hr Documented by: Piperacillin Sod/Tazobactam (Sod 3.375 gm/ Sodium Chloride) 50 mls @ 100 mls/hr IV ONETIME ONE Stop: 12/06/19 22:05 Last Admin: 12/06/19 21:53 Dose: 100 mls/hr Documented by: Piperacillin Sod/Tazobactam (Sod 3.375 gm/ Sodium Chloride) 50 mls @ 100 mls/hr IV Q8H [facility] Last Admin: 12/11/19 16:14 Dose: 100 mls/hr Documented by: Sodium Chloride (Normal Saline) 1,000 mls @ 125 mls/hr IV ASDIRECTED [facility] Last Admin: 12/10/19 09:01 Dose: 125 mls/hr Documented by: Pantoprazole Sodium 40 mg/ (Sodium Chloride) 10 mls @ 300 mls/hr IV Q24H [facility] Last Admin: 12/07/19 08:36 Dose: Not Given Documented by: Pantoprazole Sodium 40 mg/ (Sodium Chloride) 10 mls @ 300 mls/hr IV Q24H [facility] Last Admin: 12/11/19 06:13 Dose: 300 mls/hr Documented by: Potassium Chloride/Sodium Chloride (Normal Saline With 40 Meq Kcl) 1,000 mls @ 150 mls/hr IV ASDIRECTED [facility] Stop: 12/08/19 18:39 Last Admin: 12/08/19 12:26 Dose: 150 mls/hr Documented by: Dextrose/Sodium Chloride (Dextrose 5%-1/2 Ns) 1,000 mls @ 100 mls/hr IV ASDIRECTED [facility] Last Admin: 12/10/19 11:11 Dose: 100 mls/hr Documented by: Lactated Ringer's (Ringers, Lactated) 1,000 mls @ 100 mls/hr IV ASDIRECTED [facility] Last Admin: 12/11/19 06:16 Dose: 100 mls/hr Documented by: Potassium Chloride 60 meq/ (Sodium Chloride) 1,030 mls @ 150 mls/hr IV ASDIRECTED [facility] Stop: 12/11/19 16:36 Last Admin: 12/11/19 10:28 Dose: 150 mls/hr Documented by: Magnesium Sulfate (Magnesium Sulfate In Water Premix) 2 gm in 50 mls @ 50 mls/hr IV ONETIME ONE Stop: 12/11/19 11:44 Last Admin: 12/11/19 11:34 Dose: 50 mls/hr Documented by: Iopamidol (Isovue Multipack-370 (76%)) 100 ml IVPUSH ONETIME STA Stop: 12/06/19 21:02 Last Admin: 12/06/19 21:02 Dose: 100 ml Documented by: Iopamidol (Isovue Multipack-370 (76%)) 100 ml IVPUSH ONETIME STA Stop: 12/09/19 12:02 Last Admin: 12/09/19 12:05 Dose: 100 ml Documented by: Levothyroxine Sodium (Levothyroxine) 25 mcg PO ACBREAKFAST [facility] Last Admin: 12/11/19 06:29 Dose: 25 mcg Documented by: Metoprolol Succinate (Toprol Xl) 25 mg PO DAILY [facility] Last Admin: 12/11/19 08:22 Dose: 25 mg Documented by: Ondansetron HCl (Zofran) 4 mg IVPUSH ONETIME ONE Stop: 12/06/19 19:51 Last Admin: 12/06/19 20:02 Dose: 4 mg Documented by: Ondansetron HCl (Zofran) 4 mg IVPUSH Q4H PRN PRN Reason: Nausea Senna (Senna) 25.8 mg PO DAILY PRN PRN Reason: Constipation Sodium Chloride (Saline Flush) 10 ml FLUSH ASDIRECTED PRN PRN Reason: Keep Vein Open Sodium Chloride (Saline Flush) 2.5 ml FLUSH ASDIRECTED PRN PRN Reason: Keep Vein Open - Plan Plan:: I have seen and evaluated the patient and agree with the residents note unless specified in my note
[2019-12-10] MEDS: Lactated Ringers 1,000 ML IV SCH (20:06)
[2019-12-11] MEDS: Piperacillin/Tazobactam 3.375 GM in Sodium Chloride 0.9% 50 ML IV SCH ×3 (00:56→16:14)
[2019-12-11] MEDS: Pantoprazole 40 MG in Sodium Chloride 0.9% 10 ML IV SCH (06:13)
[2019-12-11] MEDS: HYDROmorphone 1 MG/ML Syringe IVPUSH PRN (06:13)
[2019-12-11] MEDS: Lactated Ringers 1,000 ML IV SCH (06:16)
[2019-12-11 07:14] LABS: BLOOD UREA NITROGEN,BUN 5 mg/dL (7.0-18.0); CARBON DIOXIDE,CO2 27.5 mmol/L (21.0-32.0); CHLORIDE,CL 106 mmol/L (98-107); GLUCOSE RANDOM 86 mg/dL (74-106); POTASSIUM,K 2.8 mmol/L (3.5-5.1); SODIUM,NA 143 mmol/L (136-145)
[2019-12-11] MEDS ORDERED: Levothyroxine 25 MCG Tab PO SCH (07:30)
[2019-12-11] MEDS: Metoprolol Succinate 25 MG Tab.ER PO SCH (08:22)
[2019-12-11] MEDS ORDERED: Magnesium Sulfate/Water 2 GM/50 ML Premix Bag IV ONE (10:27)
[2019-12-11] MEDS ORDERED: Magnesium Sulfate/Water 2 GM/50 ML BAG IV ONE (10:45)
--- NOTE | 2019-12-11 16:15 | PCM.DCSUM1 ---
<Arcenio Martinez - Last Filed: 12/11/19 17:24> Discharge Summary - Hospital Course Free Text/Narrative:: 79-year-old female admitted for small bowel obstruction. She has a PMH of Alzheimer's dementia, hypothyroidism and CAD s/p stents. On admission, CT abd/pelvis showed small bowel obstruction. General surgery was consulted. Patient was started on IV fluids and IV zosyn. NG tube was placed, however, patient repeatedly would pull NG tube out. As she continued to have bowel movements with no nausea or vomiting, partial bowel obstruction was suspected. Repeat CT abd/pelvis with oral contrast was ordered and showed possible persistent partial obstruction. KUB showed that oral contrast was going through the colon. Patient reported some improvement in her abdominal pain and was tolerating clear liquid diet. Patient did not want to have surgery done. General surgery discussed with patient's son and they decided not to proceed with surgery at this time. Patient was advised that her obstruction reoccur and she should return to the hospital for worsening abdominal pain, nausea or vomiting. She was discharged in stable condition on low residual diet per general surgery recommendation. She was also advised to follow-up with PCP and will require BMP recheck to ensure potassium level is within normal limits. - Discharge Data Discharge Date: 12/11/19 Discharge Disposition: Home, Self-Care 01 Condition: Stable - Referral to Home Health Primary Care Physician: PCP Not In Area - Discharge Diagnosis/Problem(s) (1) SBO (small bowel obstruction) SNOMED Code(s): 365782064 ICD Code: K56.609 - UNSP INTESTNL OBST, UNSP TO PARTIAL VERSUS COMPLETE OBST Status: Acute (2) Hypothyroidism SNOMED Code(s): 06450697 ICD Code: E03.9 - HYPOTHYROIDISM, UNSPECIFIED Status: Acute (3) Alzheimer disease SNOMED Code(s): 79894423 ICD Code: G30.9 - ALZHEIMER'S DISEASE, UNSPECIFIED; F02.80 - DEMENTIA IN OTH DISEASES CLASSD ELSWHR W/O BEHAVRL DISTURB Status: Acute (4) CAD (coronary artery disease) SNOMED Code(s): 91855985 ICD Code: I25.10 - ATHSCL HEART DISEASE OF [place] CORONARY ARTERY W/O ANG PCTRS Status: Acute - Patient Instructions Diet: GI Soft/Low Residue/Low Fiber Activity: As Tolerated Notify Provider of: Fever, Increased Pain, Swelling and Redness, Drainage, [place] and/or Vomiting Other/Special Instructions: worsening abdominal pain, nausea and vomiting - Discharge Plan *PRESCRIPTION DRUG MONITORING PROGRAM REVIEWED*: Not Applicable *COPY OF PRESCRIPTION DRUG MONITORING REPORT IN PATIENT KEVEN: Not Applicable Home Medications: Home Meds Apixaban [Eliquis] 5 mg PO BID 03/22/17 [History] Levothyroxine [Synthroid] 25 mcg PO ACBREAKFAST 03/22/17 [History] Memantine [Namenda] 10 mg PO BID 03/22/17 [History] Metoprolol Succinate [Toprol XL] 25 mg PO DAILY 08/15/18 [History] Rosuvastatin [Crestor] 10 mg PO DAILY 08/15/18 [History] Aspirin [Aspirin EC] 81 mg PO DAILY 12/09/19 [History] Cholecalciferol (Vitamin D3) [Vitamin D3] 1,000 unit PO DAILY 12/09/19 [History] Cyanocobalamin (Vitamin B-12) [B-12] 1,000 mcg PO DAILY 12/09/19 [History] Donepezil HCl 10 mg PO BEDTIME 12/09/19 [History] Melatonin 5 mg PO BEDTIME PRN 12/09/19 [History] Sennosides 3 tab PO DAILY PRN 12/09/19 [History] bisacodyL [Bisacodyl] 5 mg PO DAILY PRN 12/09/19 [History] polyethylene glycoL 3350 [MiraLAX] 17 gm PO DAILY PRN 12/09/19 [History] Oxygen Therapy Mode: Room Air Referrals: Madalyn Shirley MD [Resident] - 12/18/19 2:30 pm - Discharge Summary/Plan Comment DC Time >30 min.: No - Patient Data Vitals - Most Recent: Last Vital Signs Temp 37.1 C 12/11/19 15:55 Pulse 80 12/11/19 15:55 Resp 16 12/11/19 15:55 BP 129/75 12/11/19 15:55 Pulse Ox 95 12/11/19 15:55 Weight - Most Recent: 61.6 kg I&O - Last 24 hours: Intake & Output 12/11/19 12/11/19 12/11/19 06:59 14:59 22:59 Intake Total 2570 100 Output Total 950 Balance 1620 100 Lab Results - Last 24 hrs: Laboratory Results - last 24 hr 12/10/19 12/11/19 12/11/19 Range/Units 18:11 00:06 05:12 WBC 5.52 (4.0-11.0) K/uL RBC 4.12 L (4.30-5.90) M/uL Hgb 12.9 (12.0-16.0) g/dL Hct 39.4 (36.0-46.0) % MCV 95.6 (80.0-98.0) fL MCH 31.3 (27.0-32.0) pg MCHC 32.7 (31.0-37.0) g/dL RDW Std Deviation 45.7 (28.0-62.0) fl RDW Coeff of Shaan 13 (11.0-15.0) % Plt Count 190 (150-400) K/uL MPV 9.20 (7.40-12.00) fL Neut % (Auto) 63.5 (48.0-80.0) % Lymph % (Auto) 25.7 (16.0-40.0) % [place] % (Auto) 9.2 (0.0-15.0) % Eos % (Auto) 1.4 (0.0-7.0) % Baso % (Auto) 0.2 (0.0-1.5) % Neut # (Auto) 3.5 (1.4-5.7) K/uL Lymph # (Auto) 1.4 (0.6-2.4) K/uL [place] # (Auto) 0.5 (0.0-0.8) K/uL Eos # (Auto) 0.1 (0.0-0.7) K/uL Baso # (Auto) 0.0 (0.0-0.1) K/uL Nucleated RBC % 0.0 /100WBC Nucleated RBCs # 0 K/uL Sodium (136-145) mmol/L Potassium (3.5-5.1) mmol/L Chloride (98-107) mmol/L Carbon Dioxide (21.0-32.0) mmol/L BUN (7.0-18.0) mg/dL Creatinine (0.6-1.0) mg/dL Est Cr Clr Drug Dosing mL/min Estimated GFR (MDRD) ml/min Glucose (74-106) mg/dL POC Glucose 175 H 93 (60-110) mg/dL Calcium (8.5-10.1) mg/dL Magnesium (1.8-2.4) mg/dL Total Bilirubin (0.2-1.0) mg/dL AST (15-37) IU/L ALT (14-63) IU/L Alkaline Phosphatase (46-116) U/L Total Protein (6.4-8.2) g/dL Albumin (3.4-5.0) g/dL Globulin (2.6-4.0) g/dL Albumin/Globulin Ratio (0.9-1.6) 12/11/19 12/11/19 12/11/19 Range/Units 05:12 05:12 06:10 WBC (4.0-11.0) K/uL RBC (4.30-5.90) M/uL Hgb (12.0-16.0) g/dL Hct (36.0-46.0) % MCV (80.0-98.0) fL MCH (27.0-32.0) pg MCHC (31.0-37.0) g/dL RDW Std Deviation (28.0-62.0) fl RDW Coeff of Shaan (11.0-15.0) % Plt Count (150-400) K/uL MPV (7.40-12.00) fL Neut % (Auto) (48.0-80.0) % Lymph % (Auto) (16.0-40.0) % [place] % (Auto) (0.0-15.0) % Eos % (Auto) (0.0-7.0) % Baso % (Auto) (0.0-1.5) % Neut # (Auto) (1.4-5.7) K/uL Lymph # (Auto) (0.6-2.4) K/uL [place] # (Auto) (0.0-0.8) K/uL Eos # (Auto) (0.0-0.7) K/uL Baso # (Auto) (0.0-0.1) K/uL Nucleated RBC % /100WBC Nucleated RBCs # K/uL Sodium 143 (136-145) mmol/L Potassium 2.8 L (3.5-5.1) mmol/L Chloride 106 (98-107) mmol/L Carbon Dioxide 27.5 (21.0-32.0) mmol/L BUN 5 L (7.0-18.0) mg/dL Creatinine 0.8 (0.6-1.0) mg/dL Est Cr Clr Drug Dosing 49.24 mL/min Estimated GFR (MDRD) > 60.0 ml/min Glucose 86 (74-106) mg/dL POC Glucose 93 (60-110) mg/dL Calcium 8.6 (8.5-10.1) mg/dL Magnesium 1.6 L (1.8-2.4) mg/dL Total Bilirubin 0.7 (0.2-1.0) mg/dL AST 20 (15-37) IU/L ALT 15 (14-63) IU/L Alkaline Phosphatase 41 L (46-116) U/L Total Protein 6.2 L (6.4-8.2) g/dL Albumin 3.1 L (3.4-5.0) g/dL Globulin 3.1 (2.6-4.0) g/dL Albumin/Globulin Ratio 1.0 (0.9-1.6) 12/11/19 Range/Units 11:45 WBC (4.0-11.0) K/uL RBC (4.30-5.90) M/uL Hgb (12.0-16.0) g/dL Hct (36.0-46.0) % MCV (80.0-98.0) fL MCH (27.0-32.0) pg MCHC (31.0-37.0) g/dL RDW Std Deviation (28.0-62.0) fl RDW Coeff of Shaan (11.0-15.0) % Plt Count (150-400) K/uL MPV (7.40-12.00) fL Neut % (Auto) (48.0-80.0) % Lymph % (Auto) (16.0-40.0) % [place] % (Auto) (0.0-15.0) % Eos % (Auto) (0.0-7.0) % Baso % (Auto) (0.0-1.5) % Neut # (Auto) (1.4-5.7) K/uL Lymph # (Auto) (0.6-2.4) K/uL [place] # (Auto) (0.0-0.8) K/uL Eos # (Auto) (0.0-0.7) K/uL Baso # (Auto) (0.0-0.1) K/uL Nucleated RBC % /100WBC Nucleated RBCs # K/uL Sodium (136-145) mmol/L Potassium (3.5-5.1) mmol/L Chloride (98-107) mmol/L Carbon Dioxide (21.0-32.0) mmol/L BUN (7.0-18.0) mg/dL Creatinine (0.6-1.0) mg/dL Est Cr Clr Drug Dosing mL/min Estimated GFR (MDRD) ml/min Glucose (74-106) mg/dL POC Glucose 133 H (60-110) mg/dL Calcium (8.5-10.1) mg/dL Magnesium (1.8-2.4) mg/dL Total Bilirubin (0.2-1.0) mg/dL AST (15-37) IU/L ALT (14-63) IU/L Alkaline Phosphatase (46-116) U/L Total Protein (6.4-8.2) g/dL Albumin (3.4-5.0) g/dL Globulin (2.6-4.0) g/dL Albumin/Globulin Ratio (0.9-1.6) BINDU Results - Last 24 hrs: Microbiology 12/06/19 20:24 Aerobic Blood Culture - Preliminary Blood - Venous - Lab Draw NO GROWTH AFTER 4 DAYS Anaerobic Blood Culture - Final 12/06/19 20:17 Aerobic Blood Culture - Preliminary Blood - Venous NO GROWTH AFTER 4 DAYS Anaerobic Blood Culture - Final Med Orders - Current: Current Medications Benzocaine/Menthol (Cepacol Sore Throat) 1 lozenge MUCMEM Q4HR PRN PRN Reason: Sore Throat Last Admin: 12/07/19 14:15 Dose: 1 lozenge Documented by: Hydromorphone HCl (Dilaudid) 1 mg IVPUSH Q3H PRN PRN Reason: Pain Last Admin: 12/11/19 06:13 Dose: 1 mg Documented by: Piperacillin Sod/Tazobactam (Sod 3.375 gm/ Sodium Chloride) 50 mls @ 100 mls/hr IV Q8H [facility] Last Admin: 12/11/19 16:14 Dose: 100 mls/hr Documented by: Pantoprazole Sodium 40 mg/ (Sodium Chloride) 10 mls @ 300 mls/hr IV Q24H [facility] Last Admin: 12/11/19 06:13 Dose: 300 mls/hr Documented by: Lactated Ringer's (Ringers, Lactated) 1,000 mls @ 100 mls/hr IV ASDIRECTED [facility] Last Admin: 12/11/19 06:16 Dose: 100 mls/hr Documented by: Potassium Chloride 60 meq/ (Sodium Chloride) 1,030 mls @ 150 mls/hr IV ASDIRECTED [facility] Stop: 12/11/19 16:36 Last Admin: 12/11/19 10:28 Dose: 150 mls/hr Documented by: Levothyroxine Sodium (Levothyroxine) 25 mcg PO ACBREAKFAST [facility] Last Admin: 12/11/19 06:29 Dose: 25 mcg Documented by: Metoprolol Succinate (Toprol Xl) 25 mg PO DAILY [facility] Last Admin: 12/11/19 08:22 Dose: 25 mg Documented by: Ondansetron HCl (Zofran) 4 mg IVPUSH Q4H PRN PRN Reason: Nausea Senna (Senna) 25.8 mg PO DAILY PRN PRN Reason: Constipation Sodium Chloride (Saline Flush) 10 ml FLUSH ASDIRECTED PRN PRN Reason: Keep Vein Open Sodium Chloride (Saline Flush) 2.5 ml FLUSH ASDIRECTED PRN PRN Reason: Keep Vein Open Discontinued Medications Dextrose/Water (Dextrose 50% In Water) 50 ml IVPUSH ONETIME ONE Stop: 12/10/19 07:25 Last Admin: 12/10/19 07:34 Dose: 50 ml Documented by: Fentanyl (Fentanyl) 50 mcg IVPUSH ONETIME ONE Stop: 12/06/19 19:53 Last Admin: 12/06/19 20:02 Dose: 50 mcg Documented by: Fentanyl (Fentanyl) 25 mcg IVPUSH Q3HR PRN PRN Reason: Abdominal Pain Last Admin: 12/08/19 00:21 Dose: 25 mcg Documented by: Lactated Ringer's (Ringers, Lactated) 1,000 mls @ 999 mls/hr IV .BOLUS ONE Stop: 12/06/19 20:50 Last Admin: 12/06/19 20:02 Dose: 999 mls/hr Documented by: Piperacillin Sod/Tazobactam (Sod 3.375 gm/ Sodium Chloride) 50 mls @ 100 mls/hr IV ONETIME ONE Stop: 12/06/19 22:05 Last Admin: 12/06/19 21:53 Dose: 100 mls/hr Documented by: Sodium Chloride (Normal Saline) 1,000 mls @ 125 mls/hr IV ASDIRECTED [facility] Last Admin: 12/10/19 09:01 Dose: 125 mls/hr Documented by: Pantoprazole Sodium 40 mg/ (Sodium Chloride) 10 mls @ 300 mls/hr IV Q24H [facility] Last Admin: 12/07/19 08:36 Dose: Not Given Documented by: Potassium Chloride/Sodium Chloride (Normal Saline With 40 Meq Kcl) 1,000 mls @ 150 mls/hr IV ASDIRECTED [facility] Stop: 12/08/19 18:39 Last Admin: 12/08/19 12:26 Dose: 150 mls/hr Documented by: Dextrose/Sodium Chloride (Dextrose 5%-1/2 Ns) 1,000 mls @ 100 mls/hr IV ASDIRECTED [facility] Last Admin: 12/10/19 11:11 Dose: 100 mls/hr Documented by: Magnesium Sulfate (Magnesium Sulfate In Water Premix) 2 gm in 50 mls @ 50 mls/hr IV ONETIME ONE Stop: 12/11/19 11:44 Last Admin: 12/11/19 11:34 Dose: 50 mls/hr Documented by: Iopamidol (Isovue Multipack-370 (76%)) 100 ml IVPUSH ONETIME STA Stop: 12/06/19 21:02 Last Admin: 12/06/19 21:02 Dose: 100 ml Documented by: Iopamidol (Isovue Multipack-370 (76%)) 100 ml IVPUSH ONETIME STA Stop: 12/09/19 12:02 Last Admin: 12/09/19 12:05 Dose: 100 ml Documented by: Ondansetron HCl (Zofran) 4 mg IVPUSH ONETIME ONE Stop: 12/06/19 19:51 Last Admin: 12/06/19 20:02 Dose: 4 mg Documented by: <Dante Soler - Last Filed: 12/12/19 13:18> Discharge Summary - Hospital Course Free Text/Narrative:: I have seen and evaluated the patient and agree with the residents note unless specified in my note - Referral to Home Health Primary Care Physician: PCP Not In Area - Patient Data Vitals - Most Recent: Last Vital Signs Temp 37.1 C 12/11/19 16:18 Pulse 80 12/11/19 16:18 Resp 16 12/11/19 16:18 BP 129/75 12/11/19 16:18 Pulse Ox 95 12/11/19 16:18 I&O - Last 24 hours: Intake & Output 12/11/19 12/12/19 12/12/19 22:59 06:59 14:59 Intake Total 1950 Output Total 2200 Balance -250 Lab Results - Last 24 hrs: Laboratory Results - last 24 hr 12/11/19 Range/Units 16:41 POC Glucose 114 H (60-110) mg/dL BINDU Results - Last 24 hrs: Microbiology 12/06/19 20:24 Aerobic Blood Culture - Final Blood - Venous - Lab Draw NO GROWTH AFTER 5 DAYS Anaerobic Blood Culture - Final 12/06/19 20:17 Aerobic Blood Culture - Final Blood - Venous NO GROWTH AFTER 5 DAYS Anaerobic Blood Culture - Final Med Orders - Current: Current Medications Discontinued Medications Benzocaine/Menthol (Cepacol Sore Throat) 1 lozenge MUCMEM Q4HR PRN PRN Reason: Sore Throat Last Admin: 12/07/19 14:15 Dose: 1 lozenge Documented by: Dextrose/Water (Dextrose 50% In Water) 50 ml IVPUSH ONETIME ONE Stop: 12/10/19 07:25 Last Admin: 12/10/19 07:34 Dose: 50 ml Documented by: Fentanyl (Fentanyl) 50 mcg IVPUSH ONETIME ONE Stop: 12/06/19 19:53 Last Admin: 12/06/19 20:02 Dose: 50 mcg Documented by: Fentanyl (Fentanyl) 25 mcg IVPUSH Q3HR PRN PRN Reason: Abdominal Pain Last Admin: 12/08/19 00:21 Dose: 25 mcg Documented by: Hydromorphone HCl (Dilaudid) 1 mg IVPUSH Q3H PRN PRN Reason: Pain Last Admin: 12/11/19 06:13 Dose: 1 mg Documented by: Lactated Ringer's (Ringers, Lactated) 1,000 mls @ 999 mls/hr IV .BOLUS ONE Stop: 12/06/19 20:50 Last Admin: 12/06/19 20:02 Dose: 999 mls/hr Documented by: Piperacillin Sod/Tazobactam (Sod 3.375 gm/ Sodium Chloride) 50 mls @ 100 mls/hr IV ONETIME ONE Stop: 12/06/19 22:05 Last Admin: 12/06/19 21:53 Dose: 100 mls/hr Documented by: Piperacillin Sod/Tazobactam (Sod 3.375 gm/ Sodium Chloride) 50 mls @ 100 mls/hr IV Q8H [facility] Last Admin: 12/11/19 16:14 Dose: 100 mls/hr Documented by: Sodium Chloride (Normal Saline) 1,000 mls @ 125 mls/hr IV ASDIRECTED [facility] Last Admin: 12/10/19 09:01 Dose: 125 mls/hr Documented by: Pantoprazole Sodium 40 mg/ (Sodium Chloride) 10 mls @ 300 mls/hr IV Q24H [facility] Last Admin: 12/07/19 08:36 Dose: Not Given Documented by: Pantoprazole Sodium 40 mg/ (Sodium Chloride) 10 mls @ 300 mls/hr IV Q24H [facility] Last Admin: 12/11/19 06:13 Dose: 300 mls/hr Documented by: Potassium Chloride/Sodium Chloride (Normal Saline With 40 Meq Kcl) 1,000 mls @ 150 mls/hr IV ASDIRECTED [facility] Stop: 12/08/19 18:39 Last Admin: 12/08/19 12:26 Dose: 150 mls/hr Documented by: Dextrose/Sodium Chloride (Dextrose 5%-1/2 Ns) 1,000 mls @ 100 mls/hr IV ASDIRECTED [facility] Last Admin: 12/10/19 11:11 Dose: 100 mls/hr Documented by: Lactated Ringer's (Ringers, Lactated) 1,000 mls @ 100 mls/hr IV ASDIRECTED [facility] Last Admin: 12/11/19 06:16 Dose: 100 mls/hr Documented by: Potassium Chloride 60 meq/ (Sodium Chloride) 1,030 mls @ 150 mls/hr IV ASDIRECTED [facility] Stop: 12/11/19 16:36 Last Admin: 12/11/19 10:28 Dose: 150 mls/hr Documented by: Magnesium Sulfate (Magnesium Sulfate In Water Premix) 2 gm in 50 mls @ 50 mls/hr IV ONETIME ONE Stop: 12/11/19 11:44 Last Admin: 12/11/19 11:34 Dose: 50 mls/hr Documented by: Iopamidol (Isovue Multipack-370 (76%)) 100 ml IVPUSH ONETIME STA Stop: 12/06/19 21:02 Last Admin: 12/06/19 21:02 Dose: 100 ml Documented by: Iopamidol (Isovue Multipack-370 (76%)) 100 ml IVPUSH ONETIME STA Stop: 12/09/19 12:02 Last Admin: 12/09/19 12:05 Dose: 100 ml Documented by: Levothyroxine Sodium (Levothyroxine) 25 mcg PO ACBREAKFAST [facility] Last Admin: 12/11/19 06:29 Dose: 25 mcg Documented by: Metoprolol Succinate (Toprol Xl) 25 mg PO DAILY [facility] Last Admin: 12/11/19 08:22 Dose: 25 mg Documented by: Ondansetron HCl (Zofran) 4 mg IVPUSH ONETIME ONE Stop: 12/06/19 19:51 Last Admin: 12/06/19 20:02 Dose: 4 mg Documented by: Ondansetron HCl (Zofran) 4 mg IVPUSH Q4H PRN PRN Reason: Nausea Senna (Senna) 25.8 mg PO DAILY PRN PRN Reason: Constipation Sodium Chloride (Saline Flush) 10 ml FLUSH ASDIRECTED PRN PRN Reason: Keep Vein Open Sodium Chloride (Saline Flush) 2.5 ml FLUSH ASDIRECTED PRN PRN Reason: Keep Vein Open
--- NOTE | 2019-12-11 18:28 | PN ---
SUBJECTIVE: The patient was seen this morning. She said she felt very good. She had no complaints. She tolerated diet yesterday with no nausea. I actually checked on the patient several times yesterday in between cases and she was eating and said she had no pain. Nurse reports again couple of bowel movements. Nurse also reports hearing her having quite a bit of flatus, and the patient also reports flatus. The patient feels ready to go home. She says she just has a little bit of vague cramping in her lower abdomen, which is better per patient. OBJECTIVE: GENERAL: The patient is lying comfortably in her hospital bed. She is alert. She still remains confused because of her dementia. VITAL SIGNS: Temperature is 98.9, pulse is 76, blood pressure is 147/97. ABDOMEN: Soft and nondistended. Really no pain on palpating today. She does have active bowel sounds. ASSESSMENT AND PLAN: This is a pleasant 79-year-old female with small bowel obstruction. This seems to have resolved. X-ray yesterday showed contrast all the way through the colon, and the patient continues to have multiple bowel movements, passing flatus, and tolerating diet. I did have a discussion with her son about small bowel obstructions. I went over that she appears to have resolved it, although there is always possibility it might come back to in the future, but currently she is tolerating a diet. The pain is basically gone and she is passing a lot of flatus and stool. The patient would like to avoid any surgery and would like to go home. I again talked to the sons, who said they would like this also. I went over that she does have a chance of recurrence. She needs to come right back if she has any abdominal pain, nausea, vomiting. If this happens, then she would likely need a surgery. I went over that, I feel that she has a slightly higher chance of a recurrence happening. Both patient and son state they understood. Son says that mother will be staying here in [place] for at least couple of days and she will come back here if something reoccurs. The patient should have a liquid diet and then advance to more of a low residual diet. I answered all of the son's questions, I answered all of the patient's questions. I also spoke with the hospital team. JACOB POND /[id number] MTDD
== END 2019-12-11 17:15 | disposition home or self-care (01) | DRG 389 ==
LOC: MW.ED 19:04 → MW.MS 21:41 → OBSVTOIN 12-09 14:59
PROVIDERS: ADMIT Internal Medicine; ATTEND Internal Medicine
DX: K56.50 Intestinal adhesions [bands], unspecified as to partial versus complete obstruction (principal); K56.51 Intestinal adhesions [bands], with partial obstruction; N39.0 Urinary tract infection, site not specified; G30.9 Alzheimer's disease, unspecified; F02.80 Dementia in other diseases classified elsewhere, unspecified severity, without behavioral disturbance, psychotic disturbance, mood disturbance, and anxiety; I25.10 Atherosclerotic heart disease of native coronary artery without angina pectoris; E03.9 Hypothyroidism, unspecified; I11.0 Hypertensive heart disease with heart failure; E78.00 Pure hypercholesterolemia, unspecified; Z20.828 Contact with and (suspected) exposure to other viral communicable diseases; H54.7 Unspecified visual loss; E78.5 Hyperlipidemia, unspecified; Z88.5 Allergy status to narcotic agent; Z79.890 Hormone replacement therapy; Z79.899 Other long term (current) drug therapy; I25.2 Old myocardial infarction; Z95.5 Presence of coronary angioplasty implant and graft; Z86.73 Personal history of transient ischemic attack (TIA), and cerebral infarction without residual deficits; Z90.49 Acquired absence of other specified parts of digestive tract; Z90.710 Acquired absence of both cervix and uterus; I10 Essential (primary) hypertension; Z85.42 Personal history of malignant neoplasm of other parts of uterus; Z88.6 Allergy status to analgesic agent; Z79.01 Long term (current) use of anticoagulants; Z85.41 Personal history of malignant neoplasm of cervix uteri; Z98.890 Other specified postprocedural states
CPT/HCPCS: 36415 ×4; 74018 ×5; 74019; 74177; 74178; 80053 ×4; 81001; 83605; 83690; 83735; 83880; 84100; 84443; 84484; 85025 ×4; 85610; 87040 ×2; 93005; 96365; 96375; 99291; 99292; A9270; C9113 ×3; J1170 ×2; J2405; J2543 ×8; J3010 ×2; J3480; J7030 ×7; J7050 ×8; J7120; Q9967 ×2; U0002; 82962; 93010; 96361; 96376; G0378; J3475; J7042